=== PATIENT | male | born 1930 | race Caucasian/White ===

== ENCOUNTER 2017-05-06 09:23 | Inpatient (IN) | payer MEDICARE, BC ==
[~2017-05-06] VITALS: Ht 152.4 cm; Wt 90.0 kg
[2017-05-06] VITALS (14 sets, daily range): BP systolic 81–159; BP diastolic 45–73; PULSE 79–130; RESP 14–30; TEMP 98.1–98.7; O2SAT 94–100
[~2017-05-06 09:23] MED LIST: ACET325T15 PEG; Albuterol-Ipratropium Neb NEB; CARD2TAB PO; CEFA2SOL IV; DOXA1TAB35 PO; FAMO20TA2 PO; METH500T3 PO; NOVOLOGSS SQ; OXYC1CAP PO; PERI PEG; Sulfamet-Trimet 800-160 Mg Liq PO
[2017-05-06] MEDS ORDERED: RESP: RACEPINEPHRINE 2.25% 0.5 ML NEB ONE (09:28)
[2017-05-06] MEDS ORDERED: MISCELLANEOUS NURSING INFORMATION XX SCH (10:15)
[2017-05-06] MEDS ORDERED: CHLORHEXIDINE GLUCONATE 2 % 1 PACK (2 CLOTHS) TOP PRN (10:15)
[2017-05-06] MEDS ORDERED: SODIUM CHLORIDE 0.9% FLUSH 10 ML FLUSH IV FLUSH PRN (10:15)
--- NOTE | 2017-05-06 10:40 | HHI.HP ---
[facility] Service Critical Care Medicine Primary Care Physician Christopher Levy M.D. Admission Diagnosis Diagnosis: Chief Complaint: stridor Travel History International Travel<30 Days: No Contact w/Intl Traveler <30 Da: No Traveled to Known Affected Are: No History of Present Illness 87-year-old male was initially admitted to outside facility on April 10, 2017 after a fall and was found to have an unstable C5-C6 fracture for which she underwent C6 partial corpectomy, cervical discectomy anterior approach, fusion C5-C6, posterior cervical fusion C4-C7. His hospital course at that time was complicated by hematoma with cord compression for which she had repeat surgery on 04/12 with evacuation of hematoma following which he was discharged to a rehab facility however started having persistent drainage from posterior cervical neck fusion site with dysphagia and was readmitted on April 28. MSSA. On his admission April 28 at [facility] he was evaluated by multiple specialists including ENT, GI, and infectious disease. Infectious disease had the neurosurgical involved because of the persistent drainage from his neck fusion. Underwent PEG tube placement. Blood cultures done at rehab facility grew out MSSA. Patient underwent repeat surgery on April 29 and April 30 for posterior cervical wound with incision and sharp debridement and wound cultures from that surgery grew out MSSA. Blood cultures from that admission were negative. Patient was subsequently transferred to [facility] on April. He was evaluated by hospitalist service as well as ID and was continued on Ancef IV. Patient developed problems with stridor and was evaluated by ENT and underwent CT C-spine on 05/[address] head[address] CT C- spine revealed fluid collection at the level of C3 with hardware in place. This morning ENT attempted laryngoscopy however patient stopped the procedure. He has been having problem with secretions. Subsequently developed worsening stridor for which a rapid response was called and patient was transferred to the ICU. He received Solu-Medrol 125 mg IV as well as racemic epinephrine by nebulizer treatment prior to transfer. I evaluated the patient immediately on his arrival to the ICU. At that time he was on a facemask maintaining O2 sats 100%. He did have audible stridor however did have a bee sting movement. I spoke with the ENT Dr. Reyes who evaluated the patient on [facility] and notified him of events including stridor. He felt patient had vocal cord dysfunction at this time which he anticipated would improve with time however in the meanwhile we agreed that patient needed to be watched in the ICU and that he may possibly need intubation. History was obtained by reviewing records and discussion with nursing staff and Dr. Reyes. Review of Systems Constitutional: DENIES: Fever, Chills Eyes: DENIES: Eye pain Ears, nose, mouth, throat: DENIES: Nasal discharge, Oral lesions, Throat pain, Ear Pain Respiratory: COMPLAINS OF: Cough, Sputum production, Shortness of breath Cardiovascular: DENIES: Chest pain, Syncope Gastrointestinal: COMPLAINS OF: Abdominal pain, DENIES: Diarrhea, Nausea, Vomiting, Difficulty Swallowing Genitourinary: DENIES: Urgency, Dysuria Musculoskeletal: DENIES: Joint pain Integumentary: DENIES: Rash Neurologic: DENIES: Headache Psychiatric: COMPLAINS OF: Confusion Past Family Social History Allergies: Coded Allergies: aspirin (Unverified Allergy, Severe, RASH/SOB, 10/12/16) ibuprofen (Unverified Allergy, Severe, MOTRIN--RASH/SOB, 10/12/16) Past Medical History Atrial fibrillation Dysphagia Traumatic C5-C6 fracture from a fall Recent MSSA septicemia Kidney stones Past Surgical History Bilateral hip replacement PEG placement Cervical spine surgery March 2017 Active Ordered Medications Current Medications IV Ancef Oral Bactrim Medications (Trade) Dose Ordered Sig/Vikas Route Start Time Stop Time Status Last Admin (Cardura) 2 mg DAILY PO 05/05/17 09:00 05/05/17 08:00 (Pepcid) 20 mg DAILY PO 05/05/17 09:00 05/05/17 08:00 (Robaxin) 500 mg QID PRN PO 05/04/17 17:30 (Tylenol) 650 mg Q4H PRN PEG 05/04/17 17:45 (Marge-Colace) 1 tab BID PEG 05/04/17 21:00 05/05/17 08:00 (Milk Of Magnesia Liq) 30 ml Q12H PRN PO 05/04/17 17:45 (Senokot) 17.2 mg Q12H PRN PEG 05/04/17 17:45 (Dulcolax Supp) 10 mg DAILY PRN RECTAL 05/04/17 17:45 (Lactulose Liq) 30 ml DAILY PRN PO 05/04/17 17:45 (Roxicodone) 5 mg Q4H PRN PO 05/04/17 18:15 05/05/17 08:01 Cefazolin Sodium/ Dextrose 50 ml @ 100 mls/hr Q8H IV 05/04/17 20:00 05/05/17 14:18 (Duoneb Neb) 1 ampule Q6HR WHILE AWAKE NEB NEB 05/05/17 14:00 05/05/17 13:00 (Duoneb Neb) 1 ampule Q2HR NEB PRN NEB 05/05/17 08:15 05/05/17 09:36 (Bactrim 800-160 Mg/20 ml Liq) 20 ml Q12H PO 05/05/17 14:00 05/12/17 13:59 Family History Noncontributory Social History Ex smoker 1 pack per day, quit in the 70s Intermittent alcohol use No illicit drugs Review of Systems ROS Limitations: Clinical Condition ROS stridor with resp distress limiting detailed ROS Physical Exam Vital Signs Vital Signs Date Time Temp Pulse Resp B/P (MAP) Pulse Ox O2 Delivery O2 Flow Rate FiO2 05/06/17 09:40 100 Nasal Cannula 3.00 Physical Exam HEENT/Neuro: No pallor or icterus, tongue moist, CESAR, Awake alert oriented 3 , nonfocal grossly, moving all 4 extremities Neck: [place] J collar in place Chest/pulmonary: Good air entry bilaterally, Inspiratory stridor present. Cardiovascular: S1-S2 regular no gallop or murmur GI/abdomen: Soft, nontender, bowel sounds present. PEG tube in place Extremities: Warm bilaterally, no edema Septic Shock Reassessment Septic shock perfusion: reassessment completed Caprini VTE Risk Assessment Caprini VTE Risk Assessment: Mod/High Risk (score >= 2) Caprini Risk Assessment Model Point Value = 1 Point Value = 2 Point Value = 3 Point Value = 5 Age 41-60 Minor surgery BMI > 25 kg/m2 Swollen legs Varicose veins or History of unexplained or recurrent spontaneous Oral contraceptives or hormone replacement Sepsis (< 1 month) Serious lung disease, including pneumonia (< 1 month) Abnormal pulmonary function Acute myocardial infarction Congestive heart failure (< 1 month) History of inflammatory bowel disease Medical patient at bed rest Age 61-74 Arthroscopic surgery Major open surgery (> 45 min) Laparoscopic surgery (> 45 min) Malignancy Confined to bed (> 72 hours) Immobilizing plaster cast Central venous access Age >= 75 History of VTE Family history of VTE Factor V Leiden Prothrombin [id number] Lupus anticoagulant Anticardiolipin antibodies Elevated serum homocysteine Heparin-induced thrombocytopenia Other congenital or acquired thrombophilia Stroke (< 1 month) Elective arthroplasty Hip, pelvis, or leg fracture Acute spinal cord injury (< 1 month) Prophylaxis Regimen Total Risk Factor Score Risk Level Prophylaxis Regimen 0-1 Low Early ambulation 2 Moderate Order ONE of the following: *Sequential Compression Device (SCD) *Heparin 5000 units SQ BID 3-4 Higher Order ONE of the following medications: *Heparin 5000 units SQ TID *Enoxaparin/Lovenox 40 mg SQ daily (WT < 150 kg, CrCl > 30 mL/min) *Enoxaparin/Lovenox 30 mg SQ daily (WT < 150 kg, CrCl > 10-29 mL/min) *Enoxaparin/Lovenox 30 mg SQ BID (WT < 150 kg, CrCl > 30 mL/min) AND/OR *Sequential Compression Device (SCD) 5 or more Highest Order ONE of the following medications: *Heparin 5000 units SQ TID (Preferred with Epidurals) *Enoxaparin/Lovenox 40 mg SQ daily (WT < 150 kg, CrCl > 30 mL/min) *Enoxaparin/Lovenox 30 mg SQ daily (WT < 150 kg, CrCl > 10-29 mL/min) *Enoxaparin/Lovenox 30 mg SQ BID (WT < 150 kg, CrCl > 30 mL/min) AND *Sequential Compression Device (SCD) Assessment and Plan Assessment and Plan 87-year-old male with past medical history significant for atrial fibrillation, hypertension, anemia and osteoarthritis status post bilateral total hip replacements who sustained a fall in March resulting in unstable C6 fracture and spinal cord injury s/p ACDF C56, partial corpectomy C6 and posterior decompression and fusion C4 to C7 complicated by postoperative hematoma requiring evacuation and postoperative wound infection with MSSA now transferred from [facility] for worsening stridor with vocal cord dysfunction and C3 level fluid collection Unstable C6 fracture s/p fall Traumatic cervical cord injury Central cord syndrome s/p ACDF C5-C6, partial corpectomy C6 and staged posterior cervical decompression and fusion C4 to C7 complicated by hematoma with cord compression s/p evacuation -Comprehensive rehabilitation per primary team -Fall precautions -Pain management with bowel regimen -monitor wound healing Stridor Acute respiratory failure Vocal cord dysfunction Fluid collection at C3 level Patient received racemic epinephrine nebulizer treatment 2 as well as Solu- Medrol 125 mg IV at the [facility]. Continues to have stridor. Evaluated patient again with Dr. Chin and plan to proceed with intubation for airway protection and subsequently percutaneous tracheostomy Patient will be intubated and placed on mechanical ventilation and subsequently will proceed with percutaneous tracheostomy. ENT following and to decide further management of fluid collection at C3 level. Will get neurosurgical consult as well for evaluation of fluid collection at C3 level. MSSA sepsis I&D cervical wound with cultures positive for MSSA. Repeat cultures -ID consulted by primary team. Plan to continue IV Ancef for 6 weeks from date of surgery 04/29. -Per ID, plan to refer to Dr. Bean at time of discharge, questionable lifelong suppression due to hardware placement -Follow ESR/CRP Bilateral upper extremity edema -Doppler studies reveal nonocclusive thrombus in the right axillary and brachial veins. 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 Likely dysphonia multifactorial with poor respiratory effort, dry mucosa, decreased cord mobility and thick mucus. -CT neck for further evaluation -suction prn -ENT consulted by primary team., Seen by ENT scope -aspiration precautions UTI -started on Bactrim by primary team -follow up on final UCX results Atrial fibrillation Rate controlled -previously on Plavix per review of medical record -rehab team to contact NS to see when anticoagulation can be resumed -continue to monitor HR Hypertension -Continue on Cardura 2 mg daily -To monitor BP and adjust treatment accordingly Anemia, suspect postoperative anemia of acute blood loss -Hemoglobin 9.7 -Unknown baseline -Monitor for any active bleeding -Monitor CBC as indicated Incidental finding of [address] chest suggestive of spiculated mass -hospitalist discussed finding with and patient on [place] re[facility] -Recommend PET scan as outpatient Confusion, patient hallucinating -?sundowning -Neuropsychologist consulted by primary team -CT head DVT prophylaxis -Bilateral SCD/SARIKA hose/ lovenox starting 05/07 Patient's son at bedside was informed regarding current status and plan of care and voiced understanding. Dr. Lopez spoke with patient's and informed her regarding need for intubation and tracheostomy. Condition critical Time spent on critical care excluding procedures 60 minutes Chris Gupta MD May 06, 2017 10:40
[2017-05-06] MEDS: SODIUM CHLORIDE 0.9% FLUSH 10 ML FLUSH IV FLUSH SCH ×2 (11:00→20:55)
[2017-05-06] MEDS: RESP: ALBUTEROL 2.5 MG/IPRATROPIUM 0.5 MG NEB (PRN) INH (11:15)
[2017-05-06] MEDS ORDERED: RESP: RACEPINEPHRINE 2.25% 0.5 ML NEB NEB ONE (11:15)
[2017-05-06] MEDS ORDERED: fentaNYL CITRATE 250 MCG/5 ML AMP IV ONE (11:15)
[2017-05-06] MEDS ORDERED: ATROPINE SULFATE 1 MG/ML VIAL IV PUSH ONE (11:15)
[2017-05-06] MEDS ORDERED: PROPOFOL 500 MG/50 ML BTL IV ONE (11:15)
[2017-05-06] MEDS ORDERED: ATROPINE SULFATE 1 MG/10 ML SYRINGE ONE (11:22)
[2017-05-06] MEDS: PROPOFOL 1000 MG/100 ML INJ 100 ML IV PRN ×2 (11:33→17:02)
[2017-05-06] MEDS ORDERED: SUCCINYLCHOLINE CHLORIDE 200 MG/10 ML VIAL ONE (11:46)
[2017-05-06] MEDS ORDERED: ROCURONIUM INJ 50 MG/5 ML VIAL ONE (11:50)
[2017-05-06] MEDS ORDERED: fentaNYL DRIP 250 ML IV PRN (12:00)
--- NOTE | 2017-05-06 12:40 | PD.PROCEDR ---
Procedure Note Procedure Procedure: Endotracheal intubation Preop diagnosis: Stridor with upper airway compromise secondary to vocal cord dysfunction Postop diagnosis: Same Indication: Airway protection Sedation used: Propofol 100 mg IV, fentanyl 200 mcg IV Procedure: Patient was preoxygenated with 100% oxygen via Ambu bag with bag mask ventilation, following induction of sedation, laryngoscopy was performed using a glidescope with good visualization of vocal cords. A 7 Sami ET tube was passed through the vocal cords under direct visualization up to the 23 centimeter sarha and after inflating cuff of ET tube, correct placement was confirmed using bagging with good color change on CO2 detector, 5 point auscultation and chest rise with ventilation. Patient was connected to mechanical ventilation. Patient tolerated the procedure well with no immediate complications noted. Following intubation we proceeded with percutaneous tracheostomy. Please see procedure note for tracheostomy which is dictated separately for details. Chris Gupta MD May 06, 2017 12:40
--- NOTE | 2017-05-06 12:44 | PD.PROCEDR ---
Procedure Note Procedure Procedure: Percutaneous tracheostomy with bronchoscopic guidance Operators: Dr. Chris Gupta for percutaneous tracheostomy, Dr. hCin for bronchoscopy Informed consent obtained from family and documented on chart Preoperative diagnosis: Vocal cord dysfunction with airway compromise/stridor Postoperative diagnosis: Same Anesthesia used: Propofol IV infusion, fentanyl 100 g IV, rocuronium 50 mg IV for neuromuscular blockade. 1.5% lidocaine for local infiltration anesthesia Procedure: After ensuring adequate sedation/analgesia neuromuscular blockade, patient was positioned appropriately. After sterile prepping and draping, 1% lidocaine was used for local infiltration anesthesia. Dr. Chin proceeded withbronchoscopy and withdrawing ET tube. Tracheal position was visualized by transillumination. Introducer needle was inserted into the trachea under bronchoscopic guidance. A guidewire was passed via the needle and was visualized passing down the trachea following which needle was then removed. Punch dilator was used to dilate the tracheal ring following which tracheostomy dilator assembly was mounted over the guidewire and advanced to dilate the trachea with dilator being visualized via bronchoscopic guidance entering the trachea during dilation without injuring the posterior tracheal wall. Following this dilator assembly was removed and percutaneous tracheostomy mounted over dilator was advanced over the guidewire into the trachea under direct visualization following which guidewire/dilator were removed. Bronchoscope was inserted at this point by Dr. Chin via newly inserted tracheostomy and appropriate placement was confirmed by visualizing tracheal rings following which bronchoscope was withdrawn and inner cannula was placed via tracheostomy. After inflating cuff patient was connected to mechanical ventilation via tracheostomy. 4 interrupted sutures were used to secure tracheostomy to neck. Patient tolerated the procedure well with no immediate complications noted. Good hemostasis was achieved at the end of procedure. Postprocedure chest x-ray was ordered and was pending at the time of this dictation and will be reviewed when available. Chris Gupta MD May 06, 2017 12:44
[2017-05-06] MEDS ORDERED: ACETAMINOPHEN 650 MG/20.3 ML UDC PEG PRN (12:45)
[2017-05-06] MEDS ORDERED: METHOCARBAMOL 500 MG TAB PO PRN (12:45)
--- NOTE | 2017-05-06 13:00 | PD.PROCEDR ---
Procedure Note Procedure DX: Acute respiratory failure, upper airway obstruction OP: Bronchoscopy ([id number]) Procedure: Time out. Bronchoscope delivered through a sideport in the ventilator circuit and passed through the orotracheal tube. The tracheobronchial tree revealed normal anatomy and the mucosa was normal. The scope and ET tube were then withdrawn to the level of the cricoid and used for visualization of the anterior tracheal wall during insertion of a percutaneous tracheostomy. After insertion the scope was passed through the new trach tube and visualized in good position above the lara and with no bleeding from above. The vent circuit was rapidly transferred to the new trach site and full vent volumes were observed returning. O2 saturation was maintained over 95% throughout the procedure. Ernie Chni MD May 06, 2017 13:00
--- NOTE | 2017-05-06 13:33 | RADRPT ---
EXAM DATE/TIME: 05/06/2017 12:42 [place] COMPARISON: CHEST SINGLE AP, May 05, 2017, 17:01. INDICATIONS : S/p tracheostomy. MEDICAL HISTORY : Cardiovascular disease. Hypercholesterolemia. Hypertension. a-fib SURGICAL HISTORY : peg tube, internal defibrilator. ENCOUNTER: Initial ACUITY: 2 days PAIN SCORE: Non-responsive. LOCATION: Bilateral chest FINDINGS: A single view of the chest demonstrates the lungs to be symmetrically aerated without evidence of mas s, infiltrate or effusion. Tracheostomy in good position. The cardiomediastinal contours are unrema rkable. Osseous structures are intact. CONCLUSION: Tracheostomy in good position. Guerrero Henry MD FACR on May 06, 2017 at 13:31 Board Certified Radiologist. This report was verified electronically.
--- NOTE | 2017-05-06 13:59 | PD.CONS ---
History of Present Illness Service Infectious disease Consult Requested By Dr Gabbie Gupta Reason for Consult Evaluate patient with MSSA bacteremia, assist with antibiotic management Primary Care Physician Christopher Levy M.D. Diagnoses: History of Present Illness Patient seen and examined. Records reviewed. Patient was seen yesterday when he was seen [facility]. Patient is an 87-year-old male, who was initially admitted April 10 in another facility after a fall. He was diagnosed to have traumatic C5 to C6 fracture. He underwent C6 partial corpectomy, cervical discectomy anterior approach, fusion C5-C6, posterior cervical fusion C4 to C7. This was complicated by hematoma with cord compression, and he underwent surgery again on April 12 and had evacuation of the hematoma. From there he was discharged to a rehabilitation facility. In the rehabilitation apparently he was having persistent drainage from the posterior cervical neck fusion. He was also having problem with dysphagia. He was admitted again on April 28 for PEG placement. In the rehabilitation facility he was having some fatigue and generalized malaise. He was also noted to have leukocytosis. Blood cultures done in the rehabilitation facility grew MSSA. On his admission April 28 at [facility] he was evaluated by multiple specialists including ENT , GI, and infectious disease. Infectious disease had the neurosurgical involved because of the persistent drainage from his neck fusion. Patient underwent surgery on April 29 and had reexploration of the posterior cervical wound with incision and sharp debridement. Wound culture from that surgery grew MSSA. The operative note was reviewed, and during surgery there was no hardware exposed. He had blood cultures done during that admission, and it came back negative. Patient was stable and transferred to [facility] on May 04. This morning patient apparently developed significant shortness of breath, and stridor. ENT was in the process of evaluating him but he was not completed. Patient was transferred to the intensive care unit for respiratory decompensation. He had undergone tracheostomy placement. He is afebrile. His WBC is normal. His chest x-ray yesterday is normal. Abdominal x-ray yesterday also showed that the PEG tube is in the stomach, and in good position. Infectious disease consultation has been requested to assist with antibiotic management in patient with MSSA bacteremia Review of Systems ROS Limitations: Clinical Condition, Intubated Past Family Social History Allergies: Coded Allergies: aspirin (Unverified Allergy, Severe, RASH/SOB, 10/12/16) ibuprofen (Unverified Allergy, Severe, MOTRIN--RASH/SOB, 10/12/16) Past Medical History Atrial fibrillation Dysphagia Traumatic C5-C6 fracture from a fall Recent MSSA septicemia Kidney stones Past Surgical History Bilateral hip replacement PEG placement Cervical spine surgery March 2017 Past Surgical History Bilateral hip replacement PEG placement Cervical spine surgery March 2017 Active Ordered Medications Current Medications Ancef Medications (Trade) Dose Ordered Sig/Vikas Route Start Time Stop Time Status Last Admin (NS Flush) 2 ml UNSCH PRN IV FLUSH 05/06/17 10:15 (NS Flush) 2 ml BID IV FLUSH 05/06/17 11:00 (Duoneb Neb) 1 ampule Q6HR NEB NEB 05/06/17 16:00 (Duoneb Neb) 1 ampule Q4HR NEB PRN INH 05/06/17 10:15 05/06/17 11:15 (Peridex 0.12% Liq) 15 ml BID@08,20 MT 05/06/17 20:00 (Pepcid Inj) 20 mg Q12HR IV PUSH 05/06/17 21:00 (Lovenox Inj) 30 mg Q24H SQ 05/07/17 11:00 Miscellaneous Information 1 Q361D XX 05/06/17 10:15 (Chlorhexidine 2% Cloth) 3 pack Taper DAILY@04 TOP 05/07/17 04:00 05/03/18 03:59 (Chlorhexidine 2% Cloth) 3 pack UNSCH PRN TOP 05/06/17 10:15 Propofol 100 ml @ 2.73 mls/hr TITRATE PRN IV 05/06/17 12:00 05/06/17 11:33 Fentanyl Citrate 250 ml @ 5 mls/hr TITRATE PRN IV 05/06/17 12:00 05/06/17 11:34 (Tylenol) 650 mg Q4H PRN PEG 05/06/17 12:45 UNV (Ancef 2 Gm Premix) 2 gm Q8H IV 05/06/17 12:45 UNV (Cardura) 2 mg DAILY PO 05/07/17 09:00 UNV (Robaxin) 500 mg QID PRN PO 05/06/17 12:45 UNV (Roxicodone) 5 mg Q4H PRN PO 05/06/17 12:45 UNV (Marge-Colace) 1 tab BID PEG 05/06/17 21:00 UNV Non-Formulary Medication 20 ml Q12H PO 05/06/17 12:45 UNV Family History Noncontributory Social History Ex smoker 1 pack per day, quit in the 70s Intermittent alcohol use No illicit drugs Physical Exam Vital Signs Vital Signs Date Time Temp Pulse Resp B/P (MAP) Pulse Ox O2 Delivery O2 Flow Rate FiO2 05/06/17 12:40 100 100 05/06/17 12:00 99 100 05/06/17 10:30 96 Aerosol Mask 21 05/06/17 09:40 100 Nasal Cannula 3.00 Physical Exam GENERAL: Patient is a well-nourished, well-developed male, sedated on the vent, status post tracheostomy placement, not in respiratory distress. SKIN: Cool and dry. No generalized rash, no ecchymoses and no evidence of embolic lesions. HEAD: Atraumatic. Normocephalic. No temporal wasting, or tenderness. EYES: Pale conjunctiva. No petechia or hemorrhage. Pupils equal, round and reactive to light. No scleral icterus. No injection or drainage. EARS, NOSE AND THROAT: Nose without bleeding or purulent nasal discharge. NECK: Patient just had tracheostomy. He is wearing a cervical collar CARDIOVASCULAR: Regular rate and rhythm. No murmurs, rubs or gallops heard RESPIRATORY: Clear breath sounds anteriorly, no rhonchi or wheezing appreciated currently ABDOMEN: Soft, nondistended, no reaction to deep palpation.. Bowel sounds present and normoactive. No organomegaly. PEG site ok EXTREMITIES: No clubbing, cyanosis. Has edema both hands, mild pedal edema. NEUROLOGICAL: Sedated PSYCHIATRIC: Unable to assess LINE: No evidence of infection midline RUE Laboratory Laboratory Tests ESR 48 CRP 7.9 UC negative so far Wound C/S pending Test 05/05/17 02:17 05/05/17 07:12 05/05/17 07:22 Urine Color YELLOW Urine Turbidity HAZY Urine pH 6.0 Urine Specific [place] 1.031 Urine Protein 30 Urine Glucose (UA) NEG Urine Ketones 10 Urine Occult Blood NEG Urine Nitrite NEG Urine Bilirubin NEG Urine Urobilinogen LESS THAN 2.0 Urine Leukocyte Esterase SMALL Urine RBC 18 Urine WBC 11 Urine Squamous Epithelial Cells 1 Urine Transitional Epithelial Cells 1 Urine Calcium Oxalate Crystals OCC Urine Bacteria RARE Urine Mucus MANY Microscopic Urinalysis Comment CULTURE INDICATED Blood Urea Nitrogen 10 Creatinine 0.66 Random Glucose 144 Total Protein 5.5 Albumin 2.1 Calcium Level 8.0 Alkaline Phosphatase 81 Aspartate Amino Transf (AST/SGOT) 17 Alanine Aminotransferase (ALT/SGPT) 11 Total Bilirubin 0.5 Sodium Level 140 Potassium Level 3.4 Chloride Level 103 Carbon Dioxide Level 31.0 Anion Gap 6 Estimat Glomerular Filtration Rate 115 White Blood Count 8.2 Red Blood Count 3.08 Hemoglobin 9.7 Hematocrit 27.7 Mean Corpuscular Volume 89.9 Mean Corpuscular Hemoglobin 31.4 Mean Corpuscular Hemoglobin Concent 34.9 Red Cell Distribution Width 14.9 Platelet Count 232 Mean Platelet Volume 6.9 Neutrophils (%) (Auto) 82.6 Lymphocytes (%) (Auto) 9.1 Monocytes (%) (Auto) 5.5 Eosinophils (%) (Auto) 2.2 Basophils (%) (Auto) 0.6 Neutrophils # (Auto) 6.8 Lymphocytes # (Auto) 0.8 Monocytes # (Auto) 0.5 Eosinophils # (Auto) 0.2 Basophils # (Auto) 0.0 CBC Comment DIFF FINAL Differential Comment Date/Time Source Procedure Growth Status 05/05/17 02:17 Urine Clean Catch Urine Culture Pending Received Imaging RADIOLOGY STUDIES/FILMS REVIEWED Chest X-Ray 05/06/17 0000 Signed Impressions: Service Date/Time: Saturday, May 06, 2017 12:42 - CONCLUSION: Tracheostomy in good position. Guerrero Henry MD FACR Abdomen X-Ray 05/05/17 1307 Signed Impressions: Service Date/Time: April 16:04 - CONCLUSION: G-tube overlying the stomach. Haider Monzon MD Neck CT 05/05/17 0000 Signed Impressions: Service Date/Time: April 20:17 - CONCLUSION: 4 cm area at low density area in the posterior midline soft tissues at the surgical site. CT density is 13 Hounsfield units suggesting a fluid collection. Brendon Apple MD Head CT 05/05/17 0000 Signed Impressions: Service Date/Time: April 20:14 - CONCLUSION: 1. Age-appropriate atrophy. 2. No acute findings in the brain. Brendon Apple MD Chest X-Ray 05/05/17 0000 Signed Impressions: Service Date/Time: April 17:01 - CONCLUSION: No acute disease. Haider Monzon MD Upper Extremity Ultrasound 05/04/17 0000 Signed Impressions: Service Date/Time: Thursday, May 04, 2017 22:46 - CONCLUSION: 1. There is nonocclusive thrombus within the right axillary and brachial veins. The remaining veins of the right upper extremity are patent. 2. There is no left upper extremity venous thrombosis. Melo Stuart MD Lower Extremity Ultrasound 05/04/17 0000 Signed Impressions: Service Date/Time: Thursday, May 04, 2017 22:34 - CONCLUSION: No DVT is identified within either lower extremity. Melo Stuart MD Assessment and Plan Assessment and Plan IMPRESSION Stridor, etiology? 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 MSSA sepsis, due to wound infection posterior neck fusion C4-C7 - S/P incision and sharp debridement April 29 - repeat CT with fluid collection close to hardware Traumatic C5-C6 fracture S/P surgery; reop for hematoma and cord compression Mar 2017 Prob with COPD, bronchitis Dysphagia, S/P PEG S/P tracheostomy RECOMMENDATION Continue IV ANcef - plan 6 weeks from date of surgery 04/29 - when he gets D/C will refer to Dr Bean, ?chronic suppression since he has hardware Follow C/S Repeat 2 BC Patient getting echo done at bedside Monitor progress I will follow along with you Thank you for this consultation Discussed Condition With D/W Jaquelin Quintero MD May 06, 2017 13:59
[2017-05-06] MEDS: ceFAZolin 2 GM/50 ML BAG IV SCH ×2 (14:47→23:26)
--- NOTE | 2017-05-06 15:59 | PD.CONS ---
Consult Service Palliative Care Consult Requested By Dr. Gupta Primary Care Physician Christopher Levy M.D. Reason for Consultation a. To assist with evaluation and management of symptoms including: Shortness of breath, pain, debility b. To assist medical decision maker(s) with: better understanding of current medical conditions; weighing benefits/burdens of medical treatment options; making medical treatment decisions. HPI History of Present Illness Mr. Mcfarland is a 87 years old male with a past medical history of atrial fibrillation, dysphagia, traumatic C5-C6 fracture from a fall, recent MSSA septicemia and kidney stones. Patient was transferred from [facility] today to ICU after rapid response was called due to worsening audible stridor. Patient was recently admitted at [facility] on 04/10/17 after a fall sustaining an unstable C5-C6 cervical fractures. He was transferred to [facility] where he underwent C6 partial corpectomy, cervical discectomy anterior approach, fusion C5-C6 posterior, cervical fusion C4-C7. His clinical course was complicated by a hematoma with cord compression and he had to undergo repeat surgery on 04/12/17 to evacuate hematoma at [facility]. Patient was discharged to [facility] in [place] and he had complications with persistent drainage from posterior cervical neck fusion site and dysphagia. Blood cultures drawn at rehab were positive for MSSA.Patient was readmitted to [facility] on 04/28/17 where he was evaluated by infectious disease, gastroenterology, and ENT. PEG tube was placed during that admission. On and 04/30/17 patient underwent repeat surgery for posterior cervical wound with incision and debridement. Wound cultures grew MSSA and blood cultures were negative. Patient was then medically discharged transferred to [facility] for inpatient rehabilitation on May 04, 2017. In rehab patient was followed by [facility] hospitalists and infectious disease. Patient developed stridor and copious secretions at rehab and ENT was consulted. ENT attempted to perform laryngoscopy twice. Neck CT on 05/05 revealed 4 cm area of low density area in posterior midline soft tissues at the surgical site, and CT density of 13 [place] suggesting a fluid collection. 25 mg of IV Solu-Medrol, DuoNeb and racemic epi while at rehab were administered and patient continued to have worsening shortness of breath and audible stridor. Critical care Dr. Gupta consulted for respiratory and medical management. Patient went endotracheal intubation, bronchoscopy and percutaneous tracheostomy on 05/06/17. Infectious disease consulted for evaluation and management of MSSA bacteremia and assistance with antibiotic management. ENT Dr. Haskins consulted for further evaluation of vocal cord dysfunction with stridor. Neurosurgeon Dr. Castro consulted for evaluation of fluid collection C3 level. Palliative care consulted to assist with establishing goals of care. Patient seen and examined in ICU. Patient is currently sedated, trached on mechanical ventilation. Vent settings PRVC/AC 14/450/1.0S/5/50%. Vital signs stable. Lengthy telephone conversation with patients` who provided psychosocial history and past medical history. Supportive listening provided as patients explained trajectory of decline and complications that patient has faced in the past month. Updated patient`s of patient`s current medical status. Patient`s mentioned that patient has advance directives and will bring in copies to the hospital and she believes that she is the designated Health care surrogate. Addressed code status, discussed CPR limitations and benefits and patient`s at this time would like patient to be a full code. Palliative care contact information provided. Case discussed with Dr. Fco uGpta and bedside RN. . Function/Cognitive Trajectory According to patient`s prior to his fall in March, patient was independent of all his ADLs. He was able to drive. In rehab, patient was only able to ambulate short distances with a walker in the [address]. Patient mentioned that he had a Wheel chair in rehab. . Review of Systems ROS Limitations: Clinical Condition, Other (Trached and on mechanical ventilation) Constitutional: COMPLAINS OF: Pain Eyes: DENIES: Eye inflammation Ears, nose, mouth, throat: COMPLAINS OF: Hearing loss, Hoarseness Respiratory: COMPLAINS OF: Sputum production Cardiovascular: COMPLAINS OF: Lower Extremity Edema Gastrointestinal: COMPLAINS OF: Bloody stools, Constipation, Difficulty Swallowing, DENIES: Diarrhea, Nausea, Vomiting Genitourinary: COMPLAINS OF: Urgency, DENIES: Urinary incontinence Hematologic/Lymphatics: COMPLAINS OF: Bruising Neurologic: COMPLAINS OF: Abnormal gait (falls), Poor Balance, DENIES: Localized weakness Psychiatric: DENIES: Confusion, Depression Other ROS: ROS obtained from EMR, and clinical observation. . Past Family Social History Coded Allergies: aspirin (Unverified Allergy, Severe, RASH/SOB, 10/12/16) ibuprofen (Unverified Allergy, Severe, MOTRIN--RASH/SOB, 10/12/16) Past Medical History Traumatic C5-C6 fracture from a fall Atrial fibrillation Dysphagia Kidney stones Recent MSSA septicemia . Past Surgical History Cervical spine surgery March 2017 Bilateral hip replacement PEG placement . Reported Medications Novolog Inj (Insulin Aspart) 100 Unit/Ml Inj 1 Unit SQ ACHS SLIDING SCALE 30 Days Famotidine 20 Mg Tab 20 Mg PO DAILY 30 Days Gnp Senna Plus 8.6-50 mg (Sennosides-Docusate Sodium) 8.6 Mg-50 Mg Tab 1 Tab PEG BID 30 Days Eq Acetaminophen (Acetaminophen) 325 Mg Tab 650 Mg PEG Q4H PRN 30 Days Cardura (Doxazosin Mesylate) 2 Mg Tab 2 Mg PO DAILY 30 Days Methocarbamol 500 Mg Tab 500 Mg PO QID PRN 30 Days [Albuterol-Ipratropium Neb] 1 AMPULE Nebu 1 Ampule NEB Q2HR NEB PRN 30 Days [Albuterol-Ipratropium Neb] 1 AMPULE Nebu 1 Ampule NEB Q4HR WHILE AWAKE NEB 30 Days [Sulfamet-Trimet 800-160 Mg Liq] 20 ML Susp 20 Ml PO Q12H 30 Days Cefazolin Inj (Cefazolin Sodium/Dextrose) 2 Gm/50 Ml Bagp 2 Gm IV Q8H 30 Days Oxycodone (Oxycodone HCl) 5 Mg Cap 5 Mg PO Q4H PRN Methocarbamol 500 Mg Tab 500 Mg PO QID PRN Famotidine 20 Mg Tab 20 Mg PO DAILY Doxazosin (Doxazosin Mesylate) 2 Mg Tab 2 Mg PO DAILY . Current Medications Medications (Trade) Dose Ordered Sig/Vikas Route Start Time Stop Time Status Last Admin (NS Flush) 2 ml UNSCH PRN IV FLUSH 05/06/17 10:15 (NS Flush) 2 ml BID IV FLUSH 05/06/17 11:00 05/06/17 11:00 (Duoneb Neb) 1 ampule Q6HR NEB NEB 05/06/17 16:00 (Duoneb Neb) 1 ampule Q4HR NEB PRN INH 05/06/17 10:15 05/06/17 11:15 (Peridex 0.12% Liq) 15 ml BID@08,20 MT 05/06/17 20:00 (Pepcid Inj) 20 mg Q12HR IV PUSH 05/06/17 21:00 (Lovenox Inj) 30 mg Q24H SQ 05/07/17 11:00 Miscellaneous Information 1 Q361D XX 05/06/17 10:15 (Chlorhexidine 2% Cloth) 3 pack Taper DAILY@04 TOP 05/07/17 04:00 05/03/18 03:59 (Chlorhexidine 2% Cloth) 3 pack UNSCH PRN TOP 05/06/17 10:15 Propofol 100 ml @ 2.73 mls/hr TITRATE PRN IV 05/06/17 12:00 05/06/17 11:33 Fentanyl Citrate 250 ml @ 5 mls/hr TITRATE PRN IV 05/06/17 12:00 05/06/17 11:34 (Tylenol 650 Mg/ 20 ml Liq) 650 mg Q4H PRN PEG 05/06/17 12:45 (Ancef 2 Gm Premix) 2 gm Q8H IV 05/06/17 15:00 (Cardura) 2 mg DAILY PO 05/07/17 09:00 (Robaxin) 500 mg QID PRN PO 05/06/17 12:45 (Roxicodone) 5 mg Q4H PRN PO 05/06/17 12:45 (Marge-Colace) 1 tab BID PEG 05/06/17 21:00 (Bactrim 800-160 Mg/20 ml Liq) 20 ml Q12H PO 05/06/17 15:00 Family History Patient has 2 living adult children. . Substance Use Tobacco: History of smoking 1 PPD, quit in the 1970s Alcohol: Intermittent alcohol use Prescription med abuse: None reported Illicits: None reported . Psychosocial History Patient was born in [place]. 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 Patient has been 3 times and twice. Patient has been to his current Amelia for 34 years. Patient had 3 children, one , one adult daughter and one adult son. . Spiritual/Cultural Factors No quaker affiliation . Living Will: Never completed Health Care Surrogate: Never completed Durable Power of Supervisor Paint Department: Never completed Health Care Surrogate(s): Healthcare proxy -spouse -Bartolo Amelia- [phone] (to bring in copies of living will and healthcare surrogate) . Family/friends goals: Aggressive . Ethical and Legal Issues None identified at this time . Physical Exam Vital Signs Date Time Temp Pulse Resp B/P (MAP) Pulse Ox O2 Delivery O2 Flow Rate FiO2 05/06/17 12:40 100 100 05/06/17 12:00 99 100 05/06/17 10:30 96 Aerosol Mask 21 05/06/17 09:40 100 Nasal Cannula 3.00 Exam CONSTITUTIONAL/GENERAL: This is an adequately nourished patient, in no apparent distress, trached on mechanical ventilation. TUBES/LINES/DRAINS: PIV, tracheostomy, condom catheter, SCDs, PEG tube SKIN: No jaundice, rashes, or lesions. Ecchymoses on upper extremities. No wounds seen anteriorly. Skin temperature appropriate. Not diaphoretic. HEAD: Atraumatic. Normocephalic. EYES: Pupils equal and round and reactive. Extraocular motions intact. No scleral icterus. No injection or drainage. Fundi not examined. ENT: Nose without bleeding or purulent drainage. Moist oral mucosa. NECK: Trachea midline. Supple, nontender. CARDIOVASCULAR: Irregular rate and rhythm without murmurs, gallops, or rubs. Controlled A. fib-HR 70-90s. No JVD. Peripheral pulses symmetric. RESPIRATORY/CHEST: Symmetric, unlabored respirations. Clear to auscultation. Breath sounds equal bilaterally. No wheezes, rales, or rhonchi. GASTROINTESTINAL: Abdomen soft, non-tender, nondistended. No guarding. Intermittent bowel sounds. PEG tube clamped. GENITOURINARY: Without palpable bladder distension. Condom catheter MUSCULOSKELETAL: Extremities without clubbing, cyanosis, or edema. No joint tenderness or effusion noted. No calf tenderness. No mottling or clubbing. NEUROLOGICAL: Sedated, trached on mechanical ventilation. Slight withdrawal with all extremities. PSYCHIATRIC: Unable to assess. Diagnostic Tests Imaging Last Impressions Chest X-Ray 05/06/17 0000 Signed Impressions: Service Date/Time: Saturday, May 06, 2017 12:42 - CONCLUSION: Tracheostomy in good position. Guerrero Henry MD FACR Procedures 05/06/2017-endotracheal intubation and bronchoscopy 05/06/2017-percutaneous tracheostomy placement . Patient/Family Conference Family Conference Location: Telephone Issues Discussed: * Palliative care role, purpose, approach * Additional medical, psychosocial, and spiritual history * Patients general health, functional status, and cognitive changes in the months leading up to the current hospitalization * Patient/family understanding of the current medical problems * Patient/family understanding of prognosis * Patients goals of care as best understood from advance directives and/or conversations and/or values * Current medical treatment options and benefits/burdens of those options * Likely scenarios comparing ongoing aggressive care with a transition to comfort measures only * Questions answered to the best of my ability * Palliative care contact information provided Assessment and Plan Disease Oriented Problem List: (1) Acute respiratory failure (2) Dysphagia (3) Cervical spinal cord injury (4) MSSA (methicillin susceptible Staphylococcus aureus) septicemia (5) Anemia (6) A-fib (7) Hypertension Symptom Scale: (1) Shortness of breath 0-10 Scale: Unable to quantify Comment: History of C5-C6 fracture status post surgery, dysphagia. . (2) Pain 0-10 Scale: Unable to quantify Comment: Multifactorial. History of C5-C6 fracture status post surgery. Patient required tracheostomy placement 05/06/17. Currently bedbound. . (3) Debility 0-10 Scale: Unable to quantify Comment: Progressive . Pertinent Non-Medical Issues Psychosocial:Patient was born in [place]. 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 Patient has been 3 times and twice. Patient has been to his current Amelia for 34 years. Patient had 3 children, one , one adult daughter and one adult son. Spiritual: No quaker affiliation. Legal:. Patient spells he has advanced directives and she will bring in copies Ethical issues impacting care: None identified at this time . Important Contacts Spouse -Amelia Mcfarland- [phone] . Prognosis Mr. Mcfarland is a 87 years old male with a past medical history of atrial fibrillation, dysphagia, traumatic C5-C6 fracture from a fall, recent MSSA septicemia and kidney stones. Patient was transferred from [facility] today to ICU after rapid response was called due to worsening audible stridor. Patient is status post C6 partial corpectomy, cervical discectomy anterior approach, fusion C5-C6 posterior, cervical fusion C4-C7. Patient has had complications with hematoma with cord compression requiring with repeat surgery to evacuate hematoma, persistent drainage from posterior cervical neck fusion site, dysphagia and acute respiratory failure requiring tracheostomy. Given ongoing comorbidities and prolonged hospitalization, patient remains at high risk for further complications, deterioration and decline. . Code Status: Full Code Plan PLAN: Legal decision maker: Patient is currently sedated, trached and on mechanical ventilation. He is not able to participate in medical decision. According to [place] statute his Amelia Mcfarland will save his his healthcare proxy. Goals: Aggressive CODE STATUS: Full code SYMPTOMS: * Shortness of breath: Patient is he has a history of C5-C6 fracture status post partial corpectomy, discectomy and fusion. Patient also is history of dysphagia. Admitted for acute respiratory failure. Required Tracheostomy placement on 05/06/17 and mechanical ventilation. Patient is on DuoNeb's every 6 hours and prn. Patient's O2 saturation in the high 90s on FiO2 50%. No recommendations at this time. * Pain: Multifactorial. History of C5-C6 fracture status post surgery. Patient underwent tracheostomy placement 05/06/17. Currently bedbound. Patient is on fentanyl infusion at 75 mcg/hr and he has oxycodone 5 mg q 4 hrs prn, methocarbamol 500mg QID. Patient is not showing any signs of pain at this time. No recommendations. * Debility: Progressive. Patient is he had prolonged hospitalizations and was currently in [facility] rehabilitation. Patient will benefit from physical, and speech therapy. Palliative care will continue to follow the patient during hospital course as condition evolves, to assist patient/decision-maker with understanding of their medical conditions, weighing benefits/burdens of treatment options, for clarification of goals of treatment. Additionally will assist with any symptoms of palliative concern Thank you for the opportunity to participate in the care of Mr. Mcfarland. Attestation To help prompt me to consider important information that might be impacting today's encounter and assessment, information from prior notes written by myself or my colleagues may have been "brought forward" into today's note. My signature on this note, however, is an attestation that I personally performed the exam, history, and/or decision-making noted today, and, unless otherwise indicated, the interactions with patient, family, and staff as well as the review of records all occurred today. I also attest that the listed assessment and stated plan reflect my best clinical judgment today based on the combination of historical information, prior notes, and today's exam/ interactions. When time spent is documented, it refers only to time spent today by the signer, or if indicated, combined time spent today by collaborating physician/nurse practitioner. Flavia Zavaleta May 06, 2017 15:38
[2017-05-06] MEDS: SULFAMETHOXAZOLE-TRIMETHOPRIM 800-160 MG/20 ML UDC PO SCH (16:51)
[2017-05-06] MEDS: RESP: ALBUTEROL 2.5 MG/IPRATROPIUM 0.5 MG NEB (SCH) NEB ×2 (17:30→20:29)
--- NOTE | 2017-05-06 19:39 | ECHRPT ---
Indication: HEART FAILURE CONCLUSIONS Technically difficult study The left ventricular systolic function is grossly normal on limited imaging. Mild concentric left ventricular hypertrophy. Mild mitral valve regurgitation. There is mild tricuspid valve regurgitation. BP: 127 / 84 HR: 106 Rhythm: Atrial fibrillation, Atrial flut ter MEASUREMENTS (Male / Female) Normal Values Technical Quality:Technically difficult study 2D ECHO LVOT Diameter 1.8 cm Aortic Root Diameter 3.4 cm M-MODE LV Diastolic Diameter MM 5.0 cm 4.2 - 5.9 / 3.9 - 5.3 cm LV Systolic Diameter MM 3.3 cm LV Ejection Fraction MM Teich 64.7 % IVS Diastolic Thickness MM 1.2 cm 0.6 - 1.0 / 0.6 - 0.9 cm LVPW Diastolic Thickness MM 1.2 cm 0.6 - 1.0 / 0.6 - 0.9 cm LV Relative Wall Thickness MM 0.5 0.24 - 0.42 / 0.22 - 0.42 RV Diastolic Diameter MM 3.1 cm DOPPLER AV Peak Velocity 75.7 cm/s AV Peak Gradient 2.3 mmHg AV Mean Gradient 1.4 mmHg AV Velocity Time Integral 13.6 cm LVOT Peak Velocity 62.2 cm/s LVOT Peak Gradient 1.5 mmHg LVOT Velocity Time Integral 10.7 cm AV Area Cont Eq vti 2.0 cm AV Area Cont Eq pk 2.1 cm Mitral E Point Velocity 62.0 cm/s LV E' Lateral Velocity 10.1 cm/s Mitral E to LV E' Lateral Ratio 6.1 LV E' Septal Velocity 8.2 cm/s Mitral E to LV E' Septal Ratio 7.6 TR Peak Velocity 240.0 cm/s TR Peak Gradient 23.0 mmHg Right Atrial Pressure 10.0 mmHg Pulmonary Artery Systolic Pressu 33.0 mmHg Right Ventricular Systolic Press 33.0 mmHg FINDINGS LEFT VENTRICLE Normal left ventricular size. Mild concentric left ventricular hypertrophy. The left ventricular systolic function is grossly normal on limited imaging. RIGHT VENTRICLE Grossly normal LEFT ATRIUM The left atrial size is moderately dilated. RIGHT ATRIUM The right atrial size is moderately dilated. ATRIAL SEPTUM The interatrial septum not well visualized. AORTA The aortic root and proximal ascending aorta are not well visualized. MITRAL VALVE Grossly normal. Mild mitral valve regurgitation. No mitral valve stenosis. AORTIC VALVE The aortic valve is not well visualized. TRICUSPID VALVE There is mild tricuspid valve regurgitation. The estimated pulmonary arterial pressure is 33 mmHg. PULMONARY VALVE The pulmonary valve is not well visualized. VESSELS The inferior vena cava was not well visualized. PERICARDIUM No pericardial effusion. Bill Oneal DO (Electronically Signed) Final Date:06 May 2017 19:38
[2017-05-06] MEDS: CHLORHEXIDINE 0.12% (ORAL KIT) 15 ML CUP MT SCH (20:00)
[2017-05-06] MEDS ORDERED: CHLORHEXIDINE 0.12% (ORAL KIT) 15 ML CUP MT SCH (20:00)
[2017-05-06] MEDS: DOCUSATE SODIUM 50 MG/SENNA 8.6 MG TAB PEG SCH (20:55)
[2017-05-06] MEDS: FAMOTIDINE 20 MG/2 ML VIAL IV PUSH SCH (20:55)
--- NOTE | 2017-05-06 20:56 | MB ---
cc: Gentry Haskins MD DATE OF CONSULT: CHIEF COMPLAINT: Possible vocal cord dysfunction with stridor. HISTORY: The patient is a pleasant 87-year-old male initially admitted to outside facility 04/10 after a fall. He underwent cervical surgery with anterior and posterior approach. His hospital course was complicated with numerous events including hematoma, cord compression and others which he had multiple followup procedures as well to maintain his stability. Blood cultures of note grew MSSA. The patient was noted to have some stridor and there was concern for possible vocal cord dysfunction. Upon my initial evaluation of patient at 7:00 a.m. of 05/06/2017 the patient was noted to be stridorous, however, he had no desaturations. In speaking with his nurses as well, he does not have any desaturations toward the clinical care manager either. However, he was having extensive copious secretions that he was coughing up. My numerous flexible fiberoptic laryngoscopy attempts were not able to fully visualize the vocal cords because of the copious secretions and his strong gag reflex. During the examination the patient was coughing up large amount of mucus which nursing notes that he has been producing as well. The patient's care was discussed with the critical care physician and they noted that although he was stridorous, his saturations were currently stable but because of the extensiveness of this thick mucoid secretions, he needed to be on airway watch and we discussed the likelihood of an airway situation continuing to downtrend. The stridor worsened and the patient did get further airway compromise for which he underwent intubation followed by tracheostomy. Will continue to follow the patient. Thank you for this consultation. Gentry Haskins MD PCC/rt , 07:26 PM , 08:54 PM [facility]
--- NOTE | 2017-05-06 21:27 | MB ---
cc: Patrick Castro MD, James A MD DATE OF CONSULT: 05/06/2017 REASON FOR CONSULTATION: Posterior cervical wound infection. HISTORY OF PRESENT ILLNESS: An 87-year-old gentleman who apparently suffered from cervical spinal cord injury in 03/2017 in [place] and underwent surgery anterior C5 to C7 fusion and subsequent C4 to C7 fusion with lateral mass fixation and anterior plate placement. He had a postoperative infection in the posterior cervical aspect and about a week ago underwent incision and debridement with reportedly positive cultures. He also had bacteremia at this time and has been on antibiotics. He had a central spinal cord injury and was transferred to rehab facility locally. He has dysphagia and had a PEG tube placement prior to transfer here and also had difficulty with his vocal cords and ended up getting a tracheostomy and was transferred to intensive care unit today after being admitted to [facility] 2 days ago for respiratory failure. CT of the cervical spine yesterday reveals the anterior C5 to C7 plate, cage and posterior C4 to C7 lateral mass screws and rods. There is also a fluid collection subcutaneous overlying the spinous process but not near the spinal canal. The C7 screws appear to involve the foramen transverse area and possibly extending to the nerve root foramen also. He has had drainage from his posterior cervical wound with a dressing in place along with sutures. He is currently on Ancef and Bactrim and also followed by infectious disease for posterior cervical wound cultures growing out methicillin sensitive Staph aureus. PAST MEDICAL HISTORY: Cervical spine fracture status post anterior and posterior fusion with postoperative posterior cervical infection, status post I and D a week ago, all undertaken in [facility] apparently in [place]. He also has PEG tube placement for dysphagia and now has tracheostomy tube on ventilator support. Atrial fibrillation, kidney stones, bilateral hip replacement. MEDICATIONS: Currently include Lovenox 30 mg daily, Cardura, Pepcid, PeriColace, albuterol, Ancef, Bactrim, Robaxin, Roxicodone p.r.n., propofol and fentanyl drips. ALLERGIES: ASPIRIN, IBUPROFEN. LABORATORY DATA: White blood cell count 8.2, hemoglobin 9.7, platelet count of 232, sed rate of 48. Sodium 140, potassium 3.8, BUN 8, creatinine 0.54, glucose 156. PT 10.5, INR 1.0, PTT 27.1. REVIEW OF SYSTEMS: Unobtainable. Patient is intubated and sedated. SOCIAL HISTORY: He is . Former smoker and he drinks a couple of beers a day. FAMILY HISTORY: Unobtainable. There is no current family here. PHYSICAL EXAMINATION: VITAL SIGNS: Temperature 98.1, pulse is 86, respiratory rate 23, blood pressure 115/65, oxygen saturation is 97% on 50% FIO2. HEAD: He has a right posterofrontal small laceration with sutures in place. NECK: Immobilized in a [place] J collar with a tracheostomy in place. Anterior cervical incision cannot be visualized. Posterior cervical incision is midline, has sutures in place, no erythema but there is serosanguineous type fluid drainage noted on the dressing. I cannot palpate any subcutaneous fluid collection or express any fluid. Vertical mattress interrupted stitches are in place. CHEST: Clear bilaterally. HEART: Regular, normal S1, S2, no murmurs. ABDOMEN: Soft, non-tender. No hepatosplenomegaly noted. EXTREMITIES: He has significant edema in the upper and lower extremities with no deformities. GENERAL: This is an elderly male on ventilator support, sedated, lying in bed in the intensive care unit. EYES: No conjunctivitis or icterus of sclerae. SKIN: He has extensive edema in his hands and legs with the posterior cervical wound with serosanguineous type drainage on the dressing but no erythema. NEUROLOGIC: He opens his eyes when sedation is held. Pupils are equal and reactive. He follows simple commands in the upper and lower extremities although he is not cooperative enough for full muscle strength evaluation, equivocal Babinski response. He cannot make a fist with his hands or extend his hand but can give me a slight squeeze and wiggle his toes. IMPRESSION: 1. Cervical cord injury with cervical fractures in 03/2017, status post anterior and posterior cervical spine fusion in hospital in [place] with subsequent posterior cervical wound infection, status post debridement a week ago with methicillin sensitive Staphylococcus aureus growth. There appears to be some residual subcutaneous soft tissue fluid collection, question of seroma versus persistent infection, although this does not appear to extend into the spinal canal. Reportedly the posterior cervical infection did not extend to the instrumentation. 2. Respiratory failure with dysphagia, status post tracheostomy and percutaneous endoscopic gastrostomy tube placement. 3. Septic shock. PLAN: Continue with the current antibiotics for his cervical wound infection along with septicemia. Once his condition is more stable, then I would recommend that he be transferred to [facility] in [place] for further management by his surgeons who performed his cervical spine surgeries and they can determine whether if this infection of the cervical spine does not resolve, to proceed with further debridement or instrumentation removal in case deeper infection progression. There is nothing I can offer at this point from neurosurgical standpoint that needs emergent management. But in any case, I think he should be transferred back to the facility that he had his recent surgeries for further management. Patrick Castro MD RKK/rt , 07:28 PM , 09:25 PM TAMMIE
[2017-05-07] VITALS (17 sets, daily range): BP systolic 85–131; BP diastolic 48–72; PULSE 82–110; RESP 14–30; TEMP 97–99.1; O2SAT 98–100
[2017-05-07] MEDS ORDERED: POTASSIUM CHLORIDE 25 MEQ EFFERVESCENT TAB PO PRN (00:15)
[2017-05-07] MEDS ORDERED: SODIUM PHOSPHATE INJ 30 MMOL in SODIUM CHLOR 0.9% 250 ML INJ 240 ML IV PRN (00:15)
[2017-05-07] MEDS ORDERED: MAGNESIUM SULFATE INJ 4 GM in SODIUM CHLORIDE 0.9% INJ 92 ML IV PRN (00:15)
[2017-05-07] MEDS ORDERED: POTASSIUM CHLOR 20 MEQ PREMIX 100 ML IV PRN ×2 (00:15)
[2017-05-07] MEDS ORDERED: POTASSIUM PHOSPHATE MONOBASIC 500 MG TAB PO/TUBE PRN (00:15)
[2017-05-07] MEDS ORDERED: MAGNESIUM OXIDE 400 MG TAB PO PRN (00:15)
[2017-05-07] MEDS ORDERED: POTASSIUM CHLOR 40 MEQ PREMIX 100 ML IV PRN ×2 (00:15)
[2017-05-07] MEDS ORDERED: MAGNESIUM SULFATE INJ 2 GM in SODIUM CHLORIDE 0.9% INJ 96 ML IV PRN (00:15)
[2017-05-07] MEDS ORDERED: POTASSIUM PHOSPHATE MONOBASIC 500 MG TAB PO PRN (00:15)
[2017-05-07] MEDS ORDERED: POTASSIUM PHOSPHATE INJ 30 MMOL in SODIUM CHLOR 0.9% 250 ML INJ 250 ML IV PRN (00:15)
[2017-05-07 01:03] LABS: HEMATOCRIT 26.8 % (39.0-51.0); HEMOGLOBIN 9.1 GM/DL (13.0-17.0); MEAN CORPUSCULAR HEMOGLOBIN 31.3 PG (27.0-34.0); MEAN PLATELET VOLUME 7.2 FL (7.0-11.0); PLATELET COUNT 206 TH/MM3 (150-450); RED BLOOD COUNT 2.91 MIL/MM3 (4.50-5.90); RED CELL DISTRIBUTION WIDTH 15.5 % (11.6-17.2); WHITE BLOOD COUNT 4.8 TH/MM3 (4.0-11.0)
[2017-05-07 01:20] LABS: ALBUMIN 2.1 GM/DL (3.4-5.0); AST (GOT) 13 U/L (15-37); BICARBONATE 28.3 MEQ/L (21.0-32.0); BLOOD UREA NITROGEN 11 MG/DL (7-18); CALCIUM 7.9 MG/DL (8.5-10.1); CHLORIDE 104 MEQ/L (98-107); CREATININE 0.72 MG/DL (0.60-1.30); GLOMERULAR FILTRATION RATE 104 ML/MIN (>89); GLUCOSE,RANDOM 167 MG/DL (74-106); SODIUM (NA) 140 MEQ/L (136-145)
[2017-05-07 01:23] LABS: ALKALINE PHOSPHATASE 60 U/L (45-117); ALT (GPT) 9 U/L (12-78); PHOSPHORUS 2.9 MG/DL (2.5-4.9); TOTAL BILIRUBIN ADULT 0.4 MG/DL (0.2-1.0); TOTAL PROTEIN 5.5 GM/DL (6.4-8.2)
[2017-05-07] MEDS: PROPOFOL 1000 MG/100 ML INJ 100 ML IV PRN ×2 (02:30→05:50)
[2017-05-07] MEDS: SULFAMETHOXAZOLE-TRIMETHOPRIM 800-160 MG/20 ML UDC PO SCH ×2 (02:37→16:05)
[2017-05-07] MEDS: RESP: ALBUTEROL 2.5 MG/IPRATROPIUM 0.5 MG NEB (SCH) NEB ×4 (03:23→21:31)
[2017-05-07] MEDS: CHLORHEXIDINE GLUCONATE 2 % 1 PACK (2 CLOTHS) TOP SCH (04:00)
[2017-05-07 05:19] LABS: AUTOMATED NEUTROPHIL # 5.8 TH/MM3 (1.8-7.7); BASOPHIL % 0.4 % (0.0-2.0); LYMPHOCYTE # 0.7 TH/MM3 (1.0-4.8); MEAN CELL VOLUME 91.2 FL (80.0-100.0); MEAN CORPUSCULAR HEMOGLOBIN 30.3 PG (27.0-34.0); MEAN CORPUSCULAR HGB CONC 33.2 % (32.0-36.0); MEAN PLATELET VOLUME 7.8 FL (7.0-11.0); MONOCYTE # 0.4 TH/MM3 (0-0.9); NEUT % 83.6 % (16.0-70.0); PLATELET COUNT 200 TH/MM3 (150-450); RED BLOOD COUNT 2.96 MIL/MM3 (4.50-5.90); RED CELL DISTRIBUTION WIDTH 15.6 % (11.6-17.2); WHITE BLOOD COUNT 6.9 TH/MM3 (4.0-11.0)
[2017-05-07] MEDS: ceFAZolin 2 GM/50 ML BAG IV SCH ×3 (06:41→22:03)
[2017-05-07] MEDS: CHLORHEXIDINE 0.12% (ORAL KIT) 15 ML CUP MT SCH ×2 (08:00→20:00)
[2017-05-07 08:58] LABS: ALBUMIN 2.1 GM/DL (3.4-5.0); ALT (GPT) 6 U/L (12-78); AST (GOT) 23 U/L (15-37); BICARBONATE 30.3 MEQ/L (21.0-32.0); CALCIUM 7.9 MG/DL (8.5-10.1); CHLORIDE 103 MEQ/L (98-107); CREATININE 0.82 MG/DL (0.60-1.30); GLOMERULAR FILTRATION RATE 89 ML/MIN (>89); GLUCOSE,RANDOM 124 MG/DL (74-106); SODIUM (NA) 140 MEQ/L (136-145)
[2017-05-07 09:00] LABS: ALKALINE PHOSPHATASE 60 U/L (45-117); TOTAL BILIRUBIN ADULT 0.4 MG/DL (0.2-1.0); TOTAL PROTEIN 5.7 GM/DL (6.4-8.2)
[2017-05-07] MEDS: SODIUM CHLORIDE 0.9% FLUSH 10 ML FLUSH IV FLUSH SCH ×2 (09:00→20:15)
[2017-05-07] MEDS: DOXAZOSIN MESYLATE 2 MG TAB PO SCH (09:00)
[2017-05-07 09:01] LABS: BLOOD UREA NITROGEN 13 MG/DL (7-18)
[2017-05-07] MEDS: FAMOTIDINE 20 MG/2 ML VIAL IV PUSH SCH ×2 (10:09→20:15)
[2017-05-07] MEDS: ENOXAPARIN SODIUM 30 MG/0.3 ML SYRINGE SQ SCH (10:10)
[2017-05-07] MEDS: DOCUSATE SODIUM 50 MG/SENNA 8.6 MG TAB PEG SCH ×2 (10:10→20:15)
--- NOTE | 2017-05-07 12:15 | HHI.CCPN ---
Subjective Remarks/Hospital Course 87-year-old male was initially admitted to outside facility on April 10, 2017 after a fall and was found to have an unstable C5-C6 fracture for which she underwent C6 partial corpectomy, cervical discectomy anterior approach, fusion C5-C6, posterior cervical fusion C4-C7. His hospital course at that time was complicated by hematoma with cord compression for which she had repeat surgery on 04/12 with evacuation of hematoma following which he was discharged to a rehab facility however started having persistent drainage from posterior cervical neck fusion site with dysphagia and was readmitted on April 28. MSSA. On his admission April 28 at [facility] he was evaluated by multiple specialists including ENT, GI, and infectious disease. Infectious disease had the neurosurgical involved because of the persistent drainage from his neck fusion. Underwent PEG tube placement. Blood cultures done at rehab facility grew out MSSA. Patient underwent repeat surgery on April 29 and April 30 for posterior cervical wound with incision and sharp debridement and wound cultures from that surgery grew out MSSA. Blood cultures from that admission were negative. Patient was subsequently transferred to [facility] on April. He was evaluated by hospitalist service as well as ID and was continued on Ancef IV. Patient developed problems with stridor and was evaluated by ENT and underwent CT C-spine on 05/[address] head[address] CT C- spine revealed fluid collection at the level of C3 with hardware in place. This morning ENT attempted laryngoscopy however patient stopped the procedure. He has been having problem with secretions. Subsequently developed worsening stridor for which a rapid response was called and patient was transferred to the ICU. He received Solu-Medrol 125 mg IV as well as racemic epinephrine by nebulizer treatment prior to transfer. I evaluated the patient immediately on his arrival to the ICU. At that time he was on a facemask maintaining O2 sats 100%. He did have audible stridor however did have a bee sting movement. I spoke with the ENT Dr. Reyes who evaluated the patient on [facility] and notified him of events including stridor. He felt patient had vocal cord dysfunction at this time which he anticipated would improve with time however in the meanwhile we agreed that patient needed to be watched in the ICU and that he may possibly need intubation. History was obtained by reviewing records and discussion with nursing staff and Dr. Reyes. 03/10: Tracheostomy site clean and dry. Tolerating SBTs well as expected. Convert to T-piece, may need PEG but I'll bet he will swallow OK with an uncuffed trach tube. Objective Vital Signs Date Time Temp Pulse Resp B/P (MAP) Pulse Ox O2 Delivery O2 Flow Rate FiO2 05/07/17 08:20 100 35 05/07/17 07:00 Trach Collar 05/07/17 06:00 82 05/07/17 06:00 97.8 14 104/56 (72) 05/06/17 09:40 3.00 Intake and Output 05/07/17 05/07/17 05/08/17 08:00 16:00 00:00 Intake Total 894 ml Output Total 925 ml Balance -31 ml Result Diagram: 05/07/17 0414 05/07/17 0808 Objective Remarks HEENT/Neuro: No pallor or icterus, tongue moist, CESAR, responds with head nod, nonfocal grossly, moving all 4 extremities Neck: [place] J collar in place, new #[address] Chest/pulmonary: Good air entry bilaterally, comfortable, clear. Cardiovascular: S1-S2 regular no gallop or murmur, No JVD. GI/abdomen: Soft, nontender, bowel sounds present. PEG tube in place Extremities: Warm bilaterally, no edema. Well perfsued. A/P Assessment and Plan 87-year-old male with past medical history significant for atrial fibrillation, hypertension, anemia and osteoarthritis status post bilateral total hip replacements who sustained a fall in March resulting in unstable C6 fracture and spinal cord injury s/p ACDF C56, partial corpectomy C6 and posterior decompression and fusion C4 to C7 complicated by postoperative hematoma requiring evacuation and postoperative wound infection with MSSA now transferred from [facility] for worsening stridor with vocal cord dysfunction and C3 level fluid collection Unstable C6 fracture s/p fall 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 Continues to have stridor. Evaluated patient again with Dr. Chin and plan to proceed with intubation for airway protection and subsequently percutaneous tracheostomy Patient will be intubated and placed on mechanical ventilation and subsequently will proceed with percutaneous tracheostomy. ENT following and to decide further management of fluid collection at C3 level. Will get neurosurgical consult as well for evaluation of fluid collection at C3 level. Trach placed 05/07 for stable airway MSSA sepsis I&D cervical wound with cultures positive for MSSA. Repeat cultures -ID consulted by primary team. Plan to continue IV Ancef for 6 weeks from date of surgery 04/29. -Per ID, plan to refer to Dr. Bean at time of discharge, questionable lifelong suppression due to hardware placement -Follow ESR/CRP Bilateral upper extremity edema -Doppler studies reveal nonocclusive thrombus in the right axillary and brachial veins. 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 Likely dysphonia multifactorial with poor respiratory effort, dry mucosa, decreased cord mobility and thick mucus. -CT neck for further evaluation -suction prn -ENT consulted by primary team., Seen by ENT scope -aspiration precautions UTI -started on Bactrim by primary team -follow up on final UCX results Atrial fibrillation Rate controlled -previously on Plavix per review of medical record -rehab team to contact NS to see when anticoagulation can be resumed -continue to monitor HR Hypertension -Continue on Cardura 2 mg daily -To monitor BP and adjust treatment accordingly Anemia, suspect postoperative anemia of acute blood loss -Hemoglobin 9.7 -Unknown baseline -Monitor for any active bleeding -Monitor CBC as indicated Incidental finding of [address] chest suggestive of spiculated mass -hospitalist discussed finding with and patient on [place] [facility] -Recommend PET scan as outpatient Confusion, patient hallucinating -?sundowning -Neuropsychologist consulted by primary team -CT head DVT prophylaxis -Bilateral SCD/SARIKA hose/ lovenox starting 05/07 Patient's son at bedside was informed regarding current status and plan of care and voiced understanding. Dr. Lopez spoke with patient's and informed her regarding need for intubation and tracheostomy. Overall impression: Airway now secured with tracheostomy. Exchange for fenestrated tube soon so he can talk. Ernie Chin MD May 07, 2017 12:15
--- NOTE | 2017-05-07 16:14 | HHI.IDPN ---
Subjective Subjective Remarks Patient is an 87-year-old male, who was initially admitted April 10 in another facility after a fall. He was diagnosed to have traumatic C5 to C6 fracture. He underwent C6 partial corpectomy, cervical discectomy anterior approach, fusion C5-C6, posterior cervical fusion C4 to C7. This was complicated by hematoma with cord compression, and he underwent surgery again on April 12 and had evacuation of the hematoma. From there he was discharged to a rehabilitation facility. In the rehabilitation apparently he was having persistent drainage from the posterior cervical neck fusion. He was also having problem with dysphagia. He was admitted again on April 28 for PEG placement. In the rehabilitation facility he was having some fatigue and generalized malaise. He was also noted to have leukocytosis. Blood cultures done in the rehabilitation facility grew MSSA. On his admission April 28 at [facility] he was evaluated by multiple specialists including ENT , GI, and infectious disease. Infectious disease had the neurosurgical involved because of the persistent drainage from his neck fusion. Patient underwent surgery on April 29 and had reexploration of the posterior cervical wound with incision and sharp debridement. Wound culture from that surgery grew MSSA. The operative note was reviewed, and during surgery there was no hardware exposed. He had blood cultures done during that admission, and it came back negative. Patient was stable and transferred to [facility] rehabilitation on May 04. This morning patient apparently developed significant shortness of breath, and stridor. ENT was in the process of evaluating him but he was not completed. Patient was transferred to the intensive care unit for respiratory decompensation. He had undergone tracheostomy placement. He is afebrile. His WBC is normal. His chest x-ray yesterday is normal. Abdominal x-ray yesterday also showed that the PEG tube is in the stomach, and in good position. Infectious disease consultation has been requested to assist with antibiotic management in patient with MSSA bacteremia Notes reviewed Temps ok Weaning per CCM Bronch C/S negative so far UC low colony count Yesika CXR 05/06 negative Antibiotics Current Medications Ancef Bactrim Medications (Trade) Dose Ordered Sig/Vikas Route Start Time Stop Time Status Last Admin (NS Flush) 2 ml UNSCH PRN IV FLUSH 05/06/17 10:15 (NS Flush) 2 ml BID IV FLUSH 05/06/17 11:00 05/06/17 20:55 (Duoneb Neb) 1 ampule Q6HR NEB NEB 05/06/17 16:00 05/07/17 15:45 (Duoneb Neb) 1 ampule Q4HR NEB PRN INH 05/06/17 10:15 05/06/17 11:15 (Peridex 0.12% Liq) 15 ml BID@08,20 MT 05/06/17 20:00 05/07/17 08:00 (Pepcid Inj) 20 mg Q12HR IV PUSH 05/06/17 21:00 05/07/17 10:09 (Lovenox Inj) 30 mg Q24H SQ 05/07/17 11:00 05/07/17 10:10 Miscellaneous Information 1 Q361D XX 05/06/17 10:15 (Chlorhexidine 2% Cloth) 3 pack Taper DAILY@04 TOP 05/07/17 04:00 05/03/18 03:59 (Chlorhexidine 2% Cloth) 3 pack UNSCH PRN TOP 05/06/17 10:15 Propofol 100 ml @ 2.73 mls/hr TITRATE PRN IV 05/06/17 12:00 05/07/17 05:50 (Tylenol 650 Mg/ 20 ml Liq) 650 mg Q4H PRN PEG 05/06/17 12:45 (Ancef 2 Gm Premix) 2 gm Q8H IV 05/06/17 15:00 05/07/17 16:05 (Cardura) 2 mg DAILY PO 05/07/17 09:00 (Robaxin) 500 mg QID PRN PO 05/06/17 12:45 (Roxicodone) 5 mg Q4H PRN PO 05/06/17 12:45 (Marge-Colace) 1 tab BID PEG 05/06/17 21:00 05/07/17 10:10 (Bactrim 800-160 Mg/20 ml Liq) 20 ml Q12H PO 05/06/17 15:00 05/07/17 16:05 Potassium Chloride 100 ml @ 50 mls/hr Q2H PRN IV 05/07/17 00:15 Potassium Chloride 100 ml @ 50 mls/hr Q2H PRN IV 05/07/17 00:15 (K-Lyte Cl Eff) 50 meq UNSCH PRN PO 05/07/17 00:15 Potassium Chloride 100 ml @ 25 mls/hr UNSCH PRN IV 05/07/17 00:15 Potassium Chloride 100 ml @ 50 mls/hr Q2H PRN IV 05/07/17 00:15 Magnesium Sulfate 4 gm/Sodium Chloride 100 ml @ 50 mls/hr UNSCH PRN IV 05/07/17 00:15 (Mag-Ox) 800 mg UNSCH PRN PO 05/07/17 00:15 Magnesium Sulfate 2 gm/Sodium Chloride 100 ml @ 50 mls/hr UNSCH PRN IV 05/07/17 00:15 (K-Phos) 2,000 mg Q4H PRN PO 05/07/17 00:15 Sodium Phosphate 30 mmol/Sodium Chloride 250 ml @ 42 mls/hr UNSCH PRN IV 05/07/17 00:15 (K-Phos) 2,000 mg UNSCH PRN PO/TUBE 05/07/17 00:15 Potassium Phosphate 30 mmol/ Sodium Chloride 260 ml @ 42 mls/hr UNSCH PRN IV 05/07/17 00:15 Past Medical History Atrial fibrillation Dysphagia Traumatic C5-C6 fracture from a fall Recent MSSA septicemia Kidney stones Past Surgical History Bilateral hip replacement PEG placement Cervical spine surgery March 2017 Allergies: Coded Allergies: aspirin (Unverified Allergy, Severe, RASH/SOB, 10/12/16) ibuprofen (Unverified Allergy, Severe, MOTRIN--RASH/SOB, 10/12/16) Objective . Vital Signs Date Time Temp Pulse Resp B/P (MAP) Pulse Ox O2 Delivery O2 Flow Rate FiO2 05/07/17 13:52 100 T-piece 35 05/07/17 12:09 100 35 05/07/17 08:20 100 35 05/07/17 08:00 98.8 90 30 94/51 (65) 100 05/07/17 07:00 35 05/07/17 07:00 100 Trach Collar 35 05/07/17 06:00 82 05/07/17 06:00 97.8 82 14 104/56 (72) 100 05/07/17 05:00 92 14 98/54 (69) 100 05/07/17 04:22 100 35 05/07/17 04:00 98 05/07/17 04:00 98.5 99 14 96/55 (69) 100 05/07/17 04:00 35 05/07/17 03:00 98 14 85/48 (60) 100 05/07/17 02:00 110 05/07/17 02:00 101 14 89/52 (64) 100 05/07/17 01:18 100 35 05/07/17 01:00 103 15 105/53 (70) 100 05/07/17 00:00 110 05/07/17 00:00 35 05/07/17 00:00 97.5 110 15 117/55 (75) 100 05/06/17 23:00 110 16 98/53 (68) 100 05/06/17 22:00 122 05/06/17 22:00 122 16 92/55 (67) 100 05/06/17 21:00 130 14 96/53 (67) 100 05/06/17 20:24 100 35 05/06/17 20:00 35 05/06/17 20:00 98.7 79 14 90/50 (63) 100 05/06/17 20:00 79 05/06/17 19:00 100 Trach Collar 35 05/06/17 18:00 86 23 115/65 (82) 97 05/06/17 18:00 86 05/06/17 16:45 100 50 . Laboratory Tests Test 05/07/17 00:47 05/07/17 04:14 White Blood Count 4.8 TH/MM3 6.9 TH/MM3 Red Blood Count 2.91 MIL/MM3 2.96 MIL/MM3 Hemoglobin 9.1 GM/DL 9.0 GM/DL Hematocrit 26.8 % 27.0 % Mean Corpuscular Volume 92.0 FL 91.2 FL Mean Corpuscular Hemoglobin 31.3 PG 30.3 PG Mean Corpuscular Hemoglobin Concent 34.0 % 33.2 % Red Cell Distribution Width 15.5 % 15.6 % Platelet Count 206 TH/MM3 200 TH/MM3 Mean Platelet Volume 7.2 FL 7.8 FL Neutrophils (%) (Auto) 83.6 % Lymphocytes (%) (Auto) 10.0 % Monocytes (%) (Auto) 6.0 % Eosinophils (%) (Auto) 0.0 % Basophils (%) (Auto) 0.4 % Neutrophils # (Auto) 5.8 TH/MM3 Lymphocytes # (Auto) 0.7 TH/MM3 Monocytes # (Auto) 0.4 TH/MM3 Eosinophils # (Auto) 0.0 TH/MM3 Basophils # (Auto) 0.0 TH/MM3 CBC Comment AUTO DIFF Differential Comment AUTO DIFF CONFIRMED Hematology Comments Laboratory Tests Test 05/07/17 00:47 05/07/17 08:08 Blood Urea Nitrogen 11 MG/DL 13 MG/DL Creatinine 0.72 MG/DL 0.82 MG/DL Random Glucose 167 MG/DL 124 MG/DL Total Protein 5.5 GM/DL 5.7 GM/DL Albumin 2.1 GM/DL 2.1 GM/DL Calcium Level 7.9 MG/DL 7.9 MG/DL Phosphorus Level 2.9 MG/DL Magnesium Level 2.0 MG/DL Alkaline Phosphatase 60 U/L 60 U/L Aspartate Amino Transf (AST/SGOT) 13 U/L 23 U/L Alanine Aminotransferase (ALT/SGPT) 9 U/L 6 U/L Total Bilirubin 0.4 MG/DL 0.4 MG/DL Sodium Level 140 MEQ/L 140 MEQ/L Potassium Level 3.6 MEQ/L 4.0 MEQ/L Chloride Level 104 MEQ/L 103 MEQ/L Carbon Dioxide Level 28.3 MEQ/L 30.3 MEQ/L Anion Gap 8 MEQ/L 7 MEQ/L Estimat Glomerular Filtration Rate 104 ML/MIN 89 ML/MIN Imaging Last Impressions Chest X-Ray 05/06/17 0000 Signed Impressions: Service Date/Time: Saturday, May 06, 2017 12:42 - CONCLUSION: Tracheostomy in good position. Guerrero Henry MD FACR Physical Exam GENERAL: Patient is a well-nourished, well-developed male, sedated on the vent, status post tracheostomy placement, not in respiratory distress. SKIN: Cool and dry. No generalized rash, no ecchymoses and no evidence of embolic lesions. HEAD: Atraumatic. Normocephalic. No temporal wasting, or tenderness. EYES: Pale conjunctiva. No petechia or hemorrhage. Pupils equal, round and reactive to light. No scleral icterus. No injection or drainage. EARS, NOSE AND THROAT: Nose without bleeding or purulent nasal discharge. NECK: Patient just had tracheostomy. He is wearing a cervical collar CARDIOVASCULAR: Regular rate and rhythm. No murmurs, rubs or gallops heard RESPIRATORY: Clear breath sounds anteriorly, no rhonchi or wheezing appreciated currently ABDOMEN: Soft, nondistended, no reaction to deep palpation.. Bowel sounds present and normoactive. No organomegaly. PEG site ok EXTREMITIES: No clubbing, cyanosis. Has edema both hands, mild pedal edema. NEUROLOGICAL: Sedated PSYCHIATRIC: Unable to assess LINE: No evidence of infection midline RUE Assessment & Plan Remarks IMPRESSION Stridor, etiology? ?poor handling of secretions 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 MSSA sepsis, due to wound infection posterior neck fusion C4-C7 - S/P incision and sharp debridement April 29 - repeat CT with fluid collection close to hardware Persistent neck wound drainage, C/S negative Traumatic C5-C6 fracture S/P surgery; reop for hematoma and cord compression Mar 2017 Prob with COPD, bronchitis Dysphagia, S/P PEG S/P tracheostomy RECOMMENDATION Continue IV ANcef - plan 6 weeks from date of surgery 04/29 - when he gets D/C will refer to Dr Bean, ?chronic suppression since he has hardware Follow C/S Repeat 2 BC Also on Bactrim Monitor progress Jaquelin Moran MD May 07, 2017 16:14
--- NOTE | 2017-05-07 20:50 | MB ---
cc: Gentry Haskins MD, Perrin C MD DATE OF CONSULT: 05/07/2017 Of note, the patient has been stable overnight status post his tracheotomy placement. He continues to receive his IV antibiotics for his infection. He still continues to be on airway support. On evaluation of his flexible fiberoptic laryngoscopy, initial evaluation today had thick mucoid secretions present pooling in the larynx and the posterior oropharynx. After deep suctioning to the back of the mouth, a large amount of thick mucus was suctioned from this area. After revisualization, I was able to see the vocal cords. Although the epiglottis had minimal edema, there was notable edema noted in the supraglottis posteriorly surrounding the arytenoids. The patient was comfortable with my examination. Although I saw what appeared to be some movement of the right true vocal cord, it was limited in nature and there was more decreased movement of the left true vocal cord on examination. Thus, there was hypomobility of the true vocal cords with the left true vocal cord more hypomobile than the right. There was also a great amount of secretions pooling over the larynx which was only able to be removed with deep suctioning through the oral cavity. ASSESSMENT: This is a pleasant 87-year-old male with a complicated medical and surgical history with current vocal cord dysfunction bilaterally, with the right moving more than the left. This may be multifactorial, but even if it is a stretch injury to the recurrent laryngeal nerves it will likely be at least a week prior to return of function if that is the case. In cases where there is the laryngeal nerve stretch injury, high-dose steroids are often used to expedite improvement. However, with patient's infection, he may not be a good candidate for high-dose Decadron. That is a decision to be made by the home team as they are balancing his complicated medical history. I recommend regular deep suction through the oral cavity as he obviously has a thick pooling of sections in this area as seen by myself and the nurse around 12:00 this afternoon. The patient will likely need to continue with a tracheotomy in the near future until ideally the vocal cord begin to recover function, if it is a stretch injury. Infectious Disease is on board with the home team to address the patient's infection status. I appreciate all teams' coordinated care. Thank you for this consultation. Gentry Haskins MD PCC/SA/rh , 12:40 PM , 08:[address] [facility] CENTERFabiola
[2017-05-08] VITALS (14 sets, daily range): BP systolic 118–139; BP diastolic 56–72; PULSE 76–92; RESP 14–18; TEMP 97.4–99.4; O2SAT 99–100
[2017-05-08] MEDS: SULFAMETHOXAZOLE-TRIMETHOPRIM 800-160 MG/20 ML UDC PO SCH ×2 (03:15→16:21)
[2017-05-08] MEDS: CHLORHEXIDINE GLUCONATE 2 % 1 PACK (2 CLOTHS) TOP SCH (03:15)
[2017-05-08] MEDS: RESP: ALBUTEROL 2.5 MG/IPRATROPIUM 0.5 MG NEB (SCH) NEB ×4 (03:44→22:20)
[2017-05-08] MEDS ORDERED: SODIUM CHLORID 0.9% 500 ML INJ 500 ML IV ONE ×2 (04:45→08:45)
[2017-05-08] MEDS: ceFAZolin 2 GM/50 ML BAG IV SCH ×3 (06:16→23:37)
[2017-05-08] MEDS: CHLORHEXIDINE 0.12% (ORAL KIT) 15 ML CUP MT SCH ×2 (08:00→19:41)
[2017-05-08] MEDS: DOXAZOSIN MESYLATE 2 MG TAB PO SCH (08:22)
[2017-05-08] MEDS: SODIUM CHLORIDE 0.9% FLUSH 10 ML FLUSH IV FLUSH SCH ×2 (08:22→19:41)
[2017-05-08] MEDS: DOCUSATE SODIUM 50 MG/SENNA 8.6 MG TAB PEG SCH ×2 (08:22→19:40)
[2017-05-08] MEDS: FAMOTIDINE 20 MG/2 ML VIAL IV PUSH SCH ×2 (08:22→19:40)
[2017-05-08] MEDS: FREE WATER G-TUBE SCH ×3 (08:45→17:49)
[2017-05-08] MEDS: SODIUM CHLOR 0.9% 1000 ML INJ 1,000 ML IV SCH (08:45)
--- NOTE | 2017-05-08 08:56 | HHI.CCPN ---
Subjective Remarks/Hospital Course 87-year-old male was initially admitted to outside facility on April 10, 2017 after a fall and was found to have an unstable C5-C6 fracture for which she underwent C6 partial corpectomy, cervical discectomy anterior approach, fusion C5-C6, posterior cervical fusion C4-C7. His hospital course at that time was complicated by hematoma with cord compression for which she had repeat surgery on 04/12 with evacuation of hematoma following which he was discharged to a rehab facility however started having persistent drainage from posterior cervical neck fusion site with dysphagia and was readmitted on April 28. MSSA. On his admission April 28 at [facility] he was evaluated by multiple specialists including ENT, GI, and infectious disease. Infectious disease had the neurosurgical involved because of the persistent drainage from his neck fusion. Underwent PEG tube placement. Blood cultures done at rehab facility grew out MSSA. Patient underwent repeat surgery on April 29 and April 30 for posterior cervical wound with incision and sharp debridement and wound cultures from that surgery grew out MSSA. Blood cultures from that admission were negative. Patient was subsequently transferred to [facility] on April. He was evaluated by hospitalist service as well as ID and was continued on Ancef IV. Patient developed problems with stridor and was evaluated by ENT and underwent CT C-spine on 05/[address] head[address] CT C- spine revealed fluid collection at the level of C3 with hardware in place. This morning ENT attempted laryngoscopy however patient stopped the procedure. He has been having problem with secretions. Subsequently developed worsening stridor for which a rapid response was called and patient was transferred to the ICU. He received Solu-Medrol 125 mg IV as well as racemic epinephrine by nebulizer treatment prior to transfer. I evaluated the patient immediately on his arrival to the ICU. At that time he was on a facemask maintaining O2 sats 100%. He did have audible stridor however did have a bee sting movement. I spoke with the ENT Dr. Reyes who evaluated the patient on [facility] and notified him of events including stridor. He felt patient had vocal cord dysfunction at this time which he anticipated would improve with time however in the meanwhile we agreed that patient needed to be watched in the ICU and that he may possibly need intubation. History was obtained by reviewing records and discussion with nursing staff and Dr. Reyes. 03/10: Tracheostomy site clean and dry. Tolerating SBTs well as expected. Convert to T-piece, may need PEG but I'll bet he will swallow OK with an uncuffed trach tube. 05/08: Remains off the ventilator since yesterday. On TP 28% o2. Good oxygen saturation. Good extremity strength Objective Vital Signs Date Time Temp Pulse Resp B/P (MAP) Pulse Ox O2 Delivery O2 Flow Rate FiO2 05/08/17 08:26 100 T-piece 28 05/08/17 06:00 81 05/08/17 04:00 98.3 18 121/56 (77) 05/07/17 21:36 6.00 Intake and Output 05/08/17 05/08/17 05/09/17 08:00 16:00 00:00 Intake Total 1395 ml Output Total 0 ml Balance 1395 ml Result Diagram: 05/07/17 0414 05/07/17 0808 Objective Remarks HEENT/Neuro: No pallor or icterus, tongue moist, CESAR, responds with head nod, nonfocal grossly, moving all 4 extremities. Good extremities strength Neck: [place] J collar in place, new #[address] On T piece Chest/pulmonary: Good air entry bilaterally, comfortable, clear. Maintaining good saturation on T piece Cardiovascular: S1-S2 regular no gallop or murmur, No JVD. GI/abdomen: Soft, nontender, bowel sounds present. PEG tube in place Extremities: Warm bilaterally, no edema. Well perfused. A/P Assessment and Plan 87-year-old male with past medical history significant for atrial fibrillation, hypertension, anemia and osteoarthritis status post bilateral total hip replacements who sustained a fall in March resulting in unstable C6 fracture and spinal cord injury s/p ACDF C56, partial corpectomy C6 and posterior decompression and fusion C4 to C7 complicated by postoperative hematoma requiring evacuation and postoperative wound infection with MSSA now transferred from [facility] for worsening stridor with vocal cord dysfunction and C3 level fluid collection NEURO: Unstable C6 fracture s/p fall Traumatic cervical cord injury Central cord syndrome s/p ACDF C5-C6, partial corpectomy C6 and staged posterior cervical decompression and fusion C4 to C7 complicated by hematoma with cord compression s/p evacuation -Comprehensive rehabilitation per primary team -Fall precautions -Pain management with bowel regimen -monitor wound healing -PT, OOB when cleared by neurosurgery RESP: Stridor Acute respiratory failure Vocal cord dysfunction Fluid collection at C3 level Patient received racemic epinephrine nebulizer treatment 2 as well as Solu- Medrol 125 mg IV at the time of transfer from [facility] to ICU. Continues to have stridor. Intubated and placed on mechanical ventilation and subsequently underwent percutaneous tracheostomy 05/06/17. ENT following and to decide further management of fluid collection at C3 level. Neurosurgical consult as well for evaluation of fluid collection at C3 level. Dr. Castro recommends continuing current antibiotic regimen and transfer to [facility] in [place] for further management by his surgeons who performed his cervical spine surgeries If deemed infectious fluid collection, will need with further debridement or instrumentation removal in case deeper infection Trach placed 05/07 for stable airway MSSA sepsis I&D cervical wound with cultures positive for MSSA. Repeat cultures -ID following. Plan to continue IV Ancef for 6 weeks from date of surgery 04/29. -Per ID, plan to refer to Dr. Bean at time of discharge, questionable lifelong suppression due to hardware placement -Follow ESR/CRP Bilateral upper extremity edema -Doppler studies reveal nonocclusive thrombus in the right axillary and brachial veins. 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 Likely dysphonia multifactorial with poor respiratory effort, dry mucosa, decreased cord mobility and thick mucus. -CT neck for further evaluation -suction prn -ENT consulted by primary team., Seen by ENT scope -aspiration precautions UTI -started on Bactrim by primary team. DC -follow up on final UCX results Atrial fibrillation Rate controlled -previously on Plavix per review of medical record -rehab team to contact NS to see when anticoagulation can be resumed -continue to monitor HR Hypertension -Continue on Cardura 2 mg daily -To monitor BP and adjust treatment accordingly Anemia, suspect postoperative anemia of acute blood loss -Hemoglobin 9.7 -Unknown baseline -Monitor for any active bleeding -Monitor CBC as indicated Incidental finding of [address] chest suggestive of spiculated mass -hospitalist discussed finding with and patient on [facility] -Recommend PET scan as outpatient Confusion, patient hallucinating -?sundowning -Neuropsychologist consulted by primary team -CT head DVT prophylaxis -Bilateral SCD/SARIKA hose/ Lovenox starting 05/07 Patient's son at bedside was informed regarding current status and plan of care and voiced understanding. Dr. Chin spoke with patient's and informed her regarding need for intubation and tracheostomy. Overall impression: Airway now secured with tracheostomy. Exchange for fenestrated tube soon so he can talk. Lainey Alejo MD May 08, 2017 08:56
[2017-05-08] MEDS: ENOXAPARIN SODIUM 30 MG/0.3 ML SYRINGE SQ SCH (11:39)
[2017-05-08 12:24] LABS: ALBUMIN 2.1 GM/DL (3.4-5.0); AST (GOT) 20 U/L (15-37); BICARBONATE 30.2 MEQ/L (21.0-32.0); BLOOD UREA NITROGEN 16 MG/DL (7-18); CALCIUM 8.3 MG/DL (8.5-10.1); CHLORIDE 104 MEQ/L (98-107); CREATININE 0.71 MG/DL (0.60-1.30); GLOMERULAR FILTRATION RATE 105 ML/MIN (>89); GLUCOSE,RANDOM 98 MG/DL (74-106); SODIUM (NA) 139 MEQ/L (136-145)
[2017-05-08 12:25] LABS: ALT (GPT) 9 U/L (12-78)
[2017-05-08 12:27] LABS: ALKALINE PHOSPHATASE 83 U/L (45-117); TOTAL BILIRUBIN ADULT 0.3 MG/DL (0.2-1.0); TOTAL PROTEIN 5.5 GM/DL (6.4-8.2)
--- NOTE | 2017-05-08 14:47 | HHI.IDPN ---
Subjective Subjective Remarks Patient is an 87-year-old male, who was initially admitted April 10 in another facility after a fall. He was diagnosed to have traumatic C5 to C6 fracture. He underwent C6 partial corpectomy, cervical discectomy anterior approach, fusion C5-C6, posterior cervical fusion C4 to C7. This was complicated by hematoma with cord compression, and he underwent surgery again on April 12 and had evacuation of the hematoma. From there he was discharged to a rehabilitation facility. In the rehabilitation apparently he was having persistent drainage from the posterior cervical neck fusion. He was also having problem with dysphagia. He was admitted again on April 28 for PEG placement. In the rehabilitation facility he was having some fatigue and generalized malaise. He was also noted to have leukocytosis. Blood cultures done in the rehabilitation facility grew MSSA. On his admission April 28 at [facility] he was evaluated by multiple specialists including ENT , GI, and infectious disease. Infectious disease had the neurosurgical involved because of the persistent drainage from his neck fusion. Patient underwent surgery on April 29 and had reexploration of the posterior cervical wound with incision and sharp debridement. Wound culture from that surgery grew MSSA. The operative note was reviewed, and during surgery there was no hardware exposed. He had blood cultures done during that admission, and it came back negative. Patient was stable and transferred to [place] inpatient rehabilitation on May 04. This morning patient apparently developed significant shortness of breath, and stridor. ENT was in the process of evaluating him but he was not completed. Patient was transferred to the intensive care unit for respiratory decompensation. He had undergone tracheostomy placement. He is afebrile. His WBC is normal. His chest x-ray yesterday is normal. Abdominal x-ray yesterday also showed that the PEG tube is in the stomach, and in good position. Infectious disease consultation has been requested to assist with antibiotic management in patient with MSSA bacteremia Notes reviewed D/W Dr Alejo Has been extubated Temps ok Bronch C/S negative UC low colony count Yesika CXR 05/06 negative At [place]: ESR 48, CRP 7.9 ENT evaluation noted Antibiotics Current Medications Ancef Bactrim Medications (Trade) Dose Ordered Sig/Vikas Route Start Time Stop Time Status Last Admin (NS Flush) 2 ml UNSCH PRN IV FLUSH 05/06/17 10:15 (NS Flush) 2 ml BID IV FLUSH 05/06/17 11:00 05/08/17 08:22 (Duoneb Neb) 1 ampule Q6HR NEB NEB 05/06/17 16:00 05/08/17 08:26 (Duoneb Neb) 1 ampule Q4HR NEB PRN INH 05/06/17 10:15 05/06/17 11:15 (Peridex 0.12% Liq) 15 ml BID@08,20 MT 05/06/17 20:00 05/08/17 08:00 (Pepcid Inj) 20 mg Q12HR IV PUSH 05/06/17 21:00 05/08/17 08:22 (Lovenox Inj) 30 mg Q24H SQ 05/07/17 11:00 05/08/17 11:39 Miscellaneous Information 1 Q361D XX 05/06/17 10:15 (Chlorhexidine 2% Cloth) 3 pack Taper DAILY@04 TOP 05/07/17 04:00 05/03/18 03:59 (Chlorhexidine 2% Cloth) 3 pack UNSCH PRN TOP 05/06/17 10:15 Propofol 100 ml @ 2.73 mls/hr TITRATE PRN IV 05/06/17 12:00 05/07/17 05:50 (Tylenol 650 Mg/ 20 ml Liq) 650 mg Q4H PRN PEG 05/06/17 12:45 05/07/17 20:14 (Ancef 2 Gm Premix) 2 gm Q8H IV 05/06/17 15:00 05/08/17 06:16 (Cardura) 2 mg DAILY PO 05/07/17 09:00 05/08/17 08:22 (Robaxin) 500 mg QID PRN PO 05/06/17 12:45 (Roxicodone) 5 mg Q4H PRN PO 05/06/17 12:45 05/07/17 20:15 (Marge-Colace) 1 tab BID PEG 05/06/17 21:00 05/08/17 08:22 (Bactrim 800-160 Mg/20 ml Liq) 20 ml Q12H PO 05/06/17 15:00 05/10/17 12:00 05/08/17 03:15 Potassium Chloride 100 ml @ 50 mls/hr Q2H PRN IV 05/07/17 00:15 Potassium Chloride 100 ml @ 50 mls/hr Q2H PRN IV 05/07/17 00:15 (K-Lyte Cl Eff) 50 meq UNSCH PRN PO 05/07/17 00:15 Potassium Chloride 100 ml @ 25 mls/hr UNSCH PRN IV 05/07/17 00:15 Potassium Chloride 100 ml @ 50 mls/hr Q2H PRN IV 05/07/17 00:15 Magnesium Sulfate 4 gm/Sodium Chloride 100 ml @ 50 mls/hr UNSCH PRN IV 05/07/17 00:15 (Mag-Ox) 800 mg UNSCH PRN PO 05/07/17 00:15 Magnesium Sulfate 2 gm/Sodium Chloride 100 ml @ 50 mls/hr UNSCH PRN IV 05/07/17 00:15 (K-Phos) 2,000 mg Q4H PRN PO 05/07/17 00:15 Sodium Phosphate 30 mmol/Sodium Chloride 250 ml @ 42 mls/hr UNSCH PRN IV 05/07/17 00:15 (K-Phos) 2,000 mg UNSCH PRN PO/TUBE 05/07/17 00:15 Potassium Phosphate 30 mmol/ Sodium Chloride 260 ml @ 42 mls/hr UNSCH PRN IV 05/07/17 00:15 (Free Water) 200 ml Q6HR G-TUBE 05/08/17 08:45 05/08/17 11:39 Sodium Chloride 1,000 ml @ 42 mls/hr [id number] IV 05/08/17 08:45 05/08/17 08:45 Past Medical History Atrial fibrillation Dysphagia Traumatic C5-C6 fracture from a fall Recent MSSA septicemia Kidney stones Past Surgical History Bilateral hip replacement PEG placement Cervical spine surgery March 2017 Allergies: Coded Allergies: aspirin (Unverified Allergy, Severe, RASH/SOB, 10/12/16) ibuprofen (Unverified Allergy, Severe, MOTRIN--RASH/SOB, 10/12/16) Objective . Vital Signs Date Time Temp Pulse Resp B/P (MAP) Pulse Ox O2 Delivery O2 Flow Rate FiO2 05/08/17 12:00 92 05/08/17 12:00 98.6 91 14 139/70 (93) 100 05/08/17 10:00 91 05/08/17 08:26 100 T-piece 28 05/08/17 08:00 98.5 88 15 126/65 (85) 100 05/08/17 08:00 88 05/08/17 07:00 100 T-Piece 28 05/08/17 06:00 81 05/08/17 04:00 87 05/08/17 04:00 98.3 82 18 121/56 (77) 100 05/08/17 03:00 84 05/08/17 00:00 97.4 86 16 127/63 (84) 100 05/08/17 00:00 86 05/07/17 22:00 94 05/07/17 21:36 98 T-piece 6.00 28 05/07/17 20:00 88 05/07/17 20:00 99.1 88 16 131/60 (83) 100 05/07/17 19:00 100 T-Piece 35 05/07/17 16:00 97.0 98 23 118/72 (87) 100 05/08/17 05/08/17 05/09/17 15:00 23:00 07:00 Intake Total 500 ml Balance 500 ml Intake IV Total 500 ml . Laboratory Tests Test 05/07/17 00:47 05/07/17 04:14 White Blood Count 4.8 TH/MM3 6.9 TH/MM3 Red Blood Count 2.91 MIL/MM3 2.96 MIL/MM3 Hemoglobin 9.1 GM/DL 9.0 GM/DL Hematocrit 26.8 % 27.0 % Mean Corpuscular Volume 92.0 FL 91.2 FL Mean Corpuscular Hemoglobin 31.3 PG 30.3 PG Mean Corpuscular Hemoglobin Concent 34.0 % 33.2 % Red Cell Distribution Width 15.5 % 15.6 % Platelet Count 206 TH/MM3 200 TH/MM3 Mean Platelet Volume 7.2 FL 7.8 FL Neutrophils (%) (Auto) 83.6 % Lymphocytes (%) (Auto) 10.0 % Monocytes (%) (Auto) 6.0 % Eosinophils (%) (Auto) 0.0 % Basophils (%) (Auto) 0.4 % Neutrophils # (Auto) 5.8 TH/MM3 Lymphocytes # (Auto) 0.7 TH/MM3 Monocytes # (Auto) 0.4 TH/MM3 Eosinophils # (Auto) 0.0 TH/MM3 Basophils # (Auto) 0.0 TH/MM3 CBC Comment AUTO DIFF Differential Comment AUTO DIFF CONFIRMED Hematology Comments Laboratory Tests Test 05/07/17 00:47 05/07/17 08:08 05/08/17 10:55 Blood Urea Nitrogen 11 MG/DL 13 MG/DL 16 MG/DL Creatinine 0.72 MG/DL 0.82 MG/DL 0.71 MG/DL Random Glucose 167 MG/DL 124 MG/DL 98 MG/DL Total Protein 5.5 GM/DL 5.7 GM/DL 5.5 GM/DL Albumin 2.1 GM/DL 2.1 GM/DL 2.1 GM/DL Calcium Level 7.9 MG/DL 7.9 MG/DL 8.3 MG/DL Phosphorus Level 2.9 MG/DL Magnesium Level 2.0 MG/DL Alkaline Phosphatase 60 U/L 60 U/L 83 U/L Aspartate Amino Transf (AST/SGOT) 13 U/L 23 U/L 20 U/L Alanine Aminotransferase (ALT/SGPT) 9 U/L 6 U/L 9 U/L Total Bilirubin 0.4 MG/DL 0.4 MG/DL 0.3 MG/DL Sodium Level 140 MEQ/L 140 MEQ/L 139 MEQ/L Potassium Level 3.6 MEQ/L 4.0 MEQ/L 4.3 MEQ/L Chloride Level 104 MEQ/L 103 MEQ/L 104 MEQ/L Carbon Dioxide Level 28.3 MEQ/L 30.3 MEQ/L 30.2 MEQ/L Anion Gap 8 MEQ/L 7 MEQ/L 5 MEQ/L Estimat Glomerular Filtration Rate 104 ML/MIN 89 ML/MIN 105 ML/MIN Imaging Last Impressions Chest X-Ray 05/06/17 0000 Signed Impressions: Service Date/Time: Saturday, May 06, 2017 12:42 - CONCLUSION: Tracheostomy in good position. Guerrero Henry MD FACR Physical Exam GENERAL: Patient is a well-nourished, well-developed male, awake, on T- piece, NAD SKIN: Cool and dry. No generalized rash, no ecchymoses and no evidence of embolic lesions. HEAD: Atraumatic. Normocephalic. No temporal wasting, or tenderness. EYES: Pale conjunctiva. No petechia or hemorrhage. Pupils equal, round and reactive to light. No scleral icterus. No injection or drainage. EARS, NOSE AND THROAT: Nose without bleeding or purulent nasal discharge. NECK: Trach site ok. He is wearing a cervical collar CARDIOVASCULAR: Regular rate and rhythm. No murmurs, rubs or gallops heard RESPIRATORY: Clear breath sounds anteriorly, no rhonchi or wheezing appreciated currently ABDOMEN: Soft, nondistended, no reaction to deep palpation.. Bowel sounds present and normoactive. No organomegaly. PEG site ok EXTREMITIES: No clubbing, cyanosis. Has edema both hands, mild pedal edema. NEUROLOGICAL: Awake and following PSYCHIATRIC: Cooperative LINE: No evidence of infection midline RUE Assessment & Plan Remarks IMPRESSION Stridor, etiology? ?poor handling of secretions - has had problem with dysphonia, dysphagia - previous eval showed vocal cord dysfunction MSSA sepsis, due to wound infection posterior neck fusion C4-C7 - S/P incision and sharp debridement April 29 - repeat CT with fluid collection close to hardware - wound C/S no growth Persistent neck wound drainage, C/S negative, ?seroma Traumatic C5-C6 fracture S/P surgery; reop for hematoma and cord compression Mar 2017 Prob with COPD, bronchitis Dysphagia, S/P PEG S/P tracheostomy RECOMMENDATION Continue IV ANcef - plan 6 weeks from date of surgery 04/29 - when he gets D/C will refer to Dr Bean, ?chronic suppression since he has hardware Also on Bactrim - to finish 05/10 Monitor progress Monitor pulmonary status D/W Dr Alejo Will repeat ESR and CRP Jaquelin Moran MD May 08, 2017 14:47
[2017-05-09] VITALS (11 sets, daily range): BP systolic 110–136; BP diastolic 51–75; PULSE 72–92; RESP 13–20; TEMP 98–99.9; O2SAT 95–100
[2017-05-09] MEDS: SULFAMETHOXAZOLE-TRIMETHOPRIM 800-160 MG/20 ML UDC PO SCH ×2 (03:10→16:12)
[2017-05-09] MEDS: CHLORHEXIDINE GLUCONATE 2 % 1 PACK (2 CLOTHS) TOP SCH (04:00)
[2017-05-09] MEDS: FREE WATER G-TUBE SCH ×3 (04:24→10:00)
[2017-05-09] MEDS: RESP: ALBUTEROL 2.5 MG/IPRATROPIUM 0.5 MG NEB (SCH) NEB ×4 (04:57→21:22)
[2017-05-09] MEDS: ceFAZolin 2 GM/50 ML BAG IV SCH ×3 (06:04→23:38)
[2017-05-09] MEDS: CHLORHEXIDINE 0.12% (ORAL KIT) 15 ML CUP MT SCH ×2 (08:00→20:55)
--- NOTE | 2017-05-09 08:57 | HHI.PR ---
Subjective Remarks in no acute distress. trach in place. denies pain. d/w the RN and no acute issues over night. Objective Vitals Vital Signs Date Time Temp Pulse Resp B/P (MAP) Pulse Ox O2 Delivery O2 Flow Rate FiO2 05/09/17 06:00 72 05/09/17 04:00 76 13 110/64 (79) 100 05/09/17 04:00 76 05/09/17 02:00 86 05/09/17 00:00 99.9 86 19 126/59 (81) 99 05/09/17 00:00 86 05/08/17 22:31 99 T-piece 6.00 28 05/08/17 22:00 76 05/08/17 20:00 87 05/08/17 20:00 99.4 87 14 121/72 (88) 100 05/08/17 19:00 100 T-Piece 28 05/08/17 18:00 77 05/08/17 16:00 98.8 88 17 118/57 (77) 100 05/08/17 16:00 81 05/08/17 14:00 88 05/08/17 12:00 92 05/08/17 12:00 98.6 91 14 139/70 (93) 100 05/08/17 10:00 91 I/O 05/08/17 05/08/17 05/08/17 05/09/17 05/09/17 05/09/17 07:00 15:00 23:00 07:00 15:00 23:00 Intake Total 1395 ml 500 ml 1053 ml 1700 ml Output Total 0 ml 650 ml 550 ml Balance 1395 ml 500 ml 403 ml 1150 ml Intake IV Total 1025 ml 500 ml 1340 ml Tube Feeding 370 ml 453 ml 360 ml Other 600 ml Output Urine Total 0 ml 650 ml 550 ml Bladder Scan Volume Amount 14 ml # Bowel Movements 0 Result Diagram: 05/07/17 0414 05/08/17 1055 Imaging Last Impressions Chest X-Ray 05/06/17 0000 Signed Impressions: Service Date/Time: Saturday, May 06, 2017 12:42 - CONCLUSION: Tracheostomy in good position. Guerrero Henry MD FACR Objective Remarks GENERAL: This is a well-nourished, well-developed patient, in no apparent distress. Neck; trach in place CARDIOVASCULAR: Regular rate and regular rhythm without murmurs, gallops, or rubs. RESPIRATORY: Clear to auscultation. Breath sounds equal bilaterally. No wheezes , rales, or rhonchi. GASTROINTESTINAL: Abdomen soft, non-tender, nondistended. Normal, active bowel sounds- PEG in place MUSCULOSKELETAL: Extremities without clubbing, cyanosis, or edema. NEURO: Alert & Oriented x4 to person, place, time, situation. Moves all ext x4 Medications and IVs Inpatient Medications Acetaminophen (Tylenol 650 Mg/ 20 ml Liq) 650 mg Q4H PRN PEG PAIN SCALE 1 TO 3 Last administered on 05/07/17 20:14; Start 05/06/17 at 12:45 Albuterol/ Ipratropium (Duoneb Neb) 1 ampule Q4HR NEB PRN INH SHORTNESS OF BREATH Last administered on 05/06/17 11:15; Start 05/06/17 at 10:15 Atropine Sulfate (Atropine Inj) 0.5 mg ONCE ONCE IV PUSH Last administered on 05/06/17 11:15; Start 05/06/17 at 11:15; Stop 05/06/17 at 11:26; Status DC Cefazolin Sodium/ Dextrose (Ancef 2 Gm Premix) 2 gm Q8H IV Last administered on 05/09/17 06:04; Start 05/06/17 at 15:00 Chlorhexidine Gluconate (Chlorhexidine 2% Cloth) 3 pack UNSCH PRN TOP HYGIENIC CARE; Start 05/06/17 at 10:15 Chlorhexidine Gluconate (Peridex 0.12% Liq) 15 ml BID@08,20 MT Last administered on 05/08/17 19:41; Start 05/06/17 at 20:00 Doxazosin Mesylate (Cardura) 2 mg DAILY PO Last administered on 05/08/17 08:22 ; Start 05/07/17 at 09:00 Enoxaparin Sodium (Lovenox Inj) 30 mg Q24H SQ Last administered on 05/08/17 11 :39; Start 05/07/17 at 11:00 Famotidine (Pepcid Inj) 20 mg Q12HR IV PUSH Last administered on 05/08/17 19: 40; Start 05/06/17 at 21:00 Fentanyl Citrate 250 ml @ 5 mls/hr TITRATE PRN IV SEDATION Last administered on 05/06/17at 11:34; Start 05/06/17 at 12:00; Stop 05/06/17 at 23:00; Status DC Fentanyl Citrate (fentaNYL INJ) 100 mcg ONCE ONCE IV PUSH Last administered on 05/06/17at 12:14; Start 05/06/17 at 12:00; Stop 05/06/17 at 17:09; Status DC Magnesium Oxide (Mag-Ox) 800 mg UNSCH PRN PO For Magnesium 1.2 - 1.6 mg/dL; Start 05/07/17 at 00:15 Magnesium Sulfate 2 gm/Sodium Chloride 100 ml @ 50 mls/hr UNSCH PRN IV For Magnesium 1.2 - 1.6 mg/dL; Start 05/07/17 at 00:15 Magnesium Sulfate 4 gm/Sodium Chloride 100 ml @ 50 mls/hr UNSCH PRN IV For Magnesium 0.9 - 1.1 mg/dL; Start 05/07/17 at 00:15 Methocarbamol (Robaxin) 500 mg QID PRN PO MUSCLE SPASM; Start 05/06/17 at 12:45 Miscellaneous Information 1 Q361D XX ; Start 05/06/17 at 10:15 Oxycodone HCl (Roxicodone) 5 mg Q4H PRN PO PAIN 1-10 Last administered on at 19:40; Start 05/06/17 at 12:45 Potassium Phosphate (K-Phos) 2,000 mg UNSCH PRN PO/TUBE SEE LABEL COMMENTS; Start 05/07/17 at 00:15 Potassium Phosphate 30 mmol/ Sodium Chloride 260 ml @ 42 mls/hr UNSCH PRN IV SEE LABEL COMMENTS; Start 05/07/17 at 00:15 Potassium Bicarb/ Potassium Chloride (K-Lyte Cl Eff) 50 meq UNSCH PRN PO For Potassium 3.3 - 3.5 mEq/L; Start 05/07/17 at 00:15 Potassium Chloride 100 ml @ 50 mls/hr Q2H PRN IV For Potassium 3.3 - 3.5 mEq/L ; Start 05/07/17 at 00:15 Propofol 100 ml @ 2.73 mls/hr TITRATE PRN IV SEDATION Last administered on 12/15at 05:50; Start 05/06/17 at 12:00; Stop 05/08/17 at 17:13; Status DC Propofol (Diprivan 500 Mg/ 50 ml Inj) 50 mg ONCE ONCE IV Last administered on 05/06/17at 11:33; Start 05/06/17 at 11:15; Stop 05/06/17 at 11:25; Status DC Racepinephrine (Racepinephrine 2.25% Neb) 0.5 ml STAT ONCE NEB Last administered on 05/06/17 11:15; Start 05/06/17 at 11:15; Stop 05/06/17 at 11:25; Status DC Senna/Docusate Sodium (Marge-Colace) 1 tab BID PEG Last administered on at 19:40; Start 05/06/17 at 21:00 Sodium Chloride 500 ml @ 500 mls/hr BOLUS ONCE IV Last administered on at 08:45; Start 05/08/17 at 08:45; Stop 05/08/17 at 09:44; Status DC Sodium Chloride (NS Flush) 2 ml BID IV FLUSH Last administered on 05/08/17at 19: 41; Start 05/06/17 at 11:00 Sodium Phosphate 30 mmol/Sodium Chloride 250 ml @ 42 mls/hr UNSCH PRN IV For Phosphorus < 2.5 mg/dL; Start 05/07/17 at 00:15 Trimethoprim/ Sulfamethoxazole (Bactrim 800-160 Mg/20 ml Liq) 20 ml Q12H PO Last administered on 05/09/17at 03:10; Start 05/06/17 at 15:00; Stop 05/10/17 at 12:00 Water (Free Water) 200 ml Q6HR G-TUBE Last administered on 05/09/17at 04:24; Start 05/08/17 at 08:45 A/P Assessment and Plan Unstable C6 fracture s/p fall 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 Continues to have stridor. Intubated and placed on mechanical ventilation and subsequently underwent percutaneous tracheostomy 05/06/17. ENT following and to decide further management of fluid collection at C3 level. Neurosurgical consult as well for evaluation of fluid collection at C3 level. Dr. Castro recommends continuing current antibiotic regimen and transfer to [facility] in [place] for further management by his surgeons who performed his cervical spine surgeries If deemed infectious fluid collection, will need with further debridement or instrumentation removal in case deeper infection Trach placed 05/07 for stable airway MSSA sepsis I&D cervical wound with cultures positive for MSSA. -ID following. Plan to continue IV Ancef for 6 weeks from date of surgery 04/29. -Per ID, plan to refer to Dr. Bena at time of discharge, questionable lifelong suppression due to hardware placement -Follow ESR/CRP Bilateral upper extremity edema -Doppler studies reveal nonocclusive thrombus in the right axillary and brachial veins. 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 Likely dysphonia multifactorial with poor respiratory effort, dry mucosa, decreased cord mobility and thick mucus. -suction prn -ENT consulted UTI -started on Bactrim. Atrial fibrillation Rate controlled -previously on Plavix per review of medical record -consider anticoagulation to be resumed when ok with neurosurgery. -continue to monitor HR Hypertension -Continue on Cardura 2 mg daily -To monitor BP and adjust treatment accordingly Anemia, suspect postoperative anemia of acute blood loss -Unknown baseline -Monitor for any active bleeding -Monitor CBC as indicated Incidental finding of [address] chest suggestive of spiculated mass -previously discussed finding with and patient on [facility] -Recommend PET scan as outpatient DVT prophylaxis -Bilateral SCD/SARIKA hose/ Lovenox starting 05/07 transfer to floor. d/w the RN and . Discharge Planning dc planning to [facility]. Cuca Saucedo MD May 09, 2017 08:56
[2017-05-09] MEDS: FAMOTIDINE 20 MG/2 ML VIAL IV PUSH SCH ×2 (09:00→20:51)
[2017-05-09] MEDS: SODIUM CHLORIDE 0.9% FLUSH 10 ML FLUSH IV FLUSH SCH ×2 (09:00→21:09)
[2017-05-09] MEDS: DOCUSATE SODIUM 50 MG/SENNA 8.6 MG TAB PEG SCH ×2 (09:59→20:54)
[2017-05-09] MEDS: DOXAZOSIN MESYLATE 2 MG TAB PO SCH (09:59)
[2017-05-09] MEDS: ENOXAPARIN SODIUM 30 MG/0.3 ML SYRINGE SQ SCH (10:00)
--- NOTE | 2017-05-09 11:00 | HHI.IDPN ---
Subjective Subjective Remarks Patient is an 87-year-old male, who was initially admitted April 10 in another facility after a fall. He was diagnosed to have traumatic C5 to C6 fracture. He underwent C6 partial corpectomy, cervical discectomy anterior approach, fusion C5-C6, posterior cervical fusion C4 to C7. This was complicated by hematoma with cord compression, and he underwent surgery again on April 12 and had evacuation of the hematoma. From there he was discharged to a rehabilitation facility. In the rehabilitation apparently he was having persistent drainage from the posterior cervical neck fusion. He was also having problem with dysphagia. He was admitted again on April 28 for PEG placement. In the rehabilitation facility he was having some fatigue and generalized malaise. He was also noted to have leukocytosis. Blood cultures done in the rehabilitation facility grew MSSA. On his admission April 28 at [facility] he was evaluated by multiple specialists including ENT , GI, and infectious disease. Infectious disease had the neurosurgical involved because of the persistent drainage from his neck fusion. Patient underwent surgery on April 29 and had reexploration of the posterior cervical wound with incision and sharp debridement. Wound culture from that surgery grew MSSA. The operative note was reviewed, and during surgery there was no hardware exposed. He had blood cultures done during that admission, and it came back negative. Patient was stable and transferred to [facility] inpatient rehabilitation on May 04. This morning patient apparently developed significant shortness of breath, and stridor. ENT was in the process of evaluating him but he was not completed. Patient was transferred to the intensive care unit for respiratory decompensation. He had undergone tracheostomy placement. He is afebrile. His WBC is normal. His chest x-ray yesterday is normal. Abdominal x-ray yesterday also showed that the PEG tube is in the stomach, and in good position. Infectious disease consultation has been requested to assist with antibiotic management in patient with MSSA bacteremia Notes reviewed D/W Dr Alejo Is cussed with RN Stable on T piece Had some low-grade temps overnight No pain Repeat ESR and CRP lower Procalcitonin 0.16 Wounds C/S negative UC low colony count Yesika CXR 05/06 negative At [facility]: ESR 48, CRP 7.9 Antibiotics Current Medications Ancef Bactrim Medications (Trade) Dose Ordered Sig/Vikas Route Start Time Stop Time Status Last Admin (NS Flush) 2 ml UNSCH PRN IV FLUSH 05/06/17 10:15 (NS Flush) 2 ml BID IV FLUSH 05/06/17 11:00 05/08/17 08:22 (Duoneb Neb) 1 ampule Q6HR NEB NEB 05/06/17 16:00 05/08/17 08:26 (Duoneb Neb) 1 ampule Q4HR NEB PRN INH 05/06/17 10:15 05/06/17 11:15 (Peridex 0.12% Liq) 15 ml BID@08,20 MT 05/06/17 20:00 05/08/17 08:00 (Pepcid Inj) 20 mg Q12HR IV PUSH 05/06/17 21:00 05/08/17 08:22 (Lovenox Inj) 30 mg Q24H SQ 05/07/17 11:00 05/08/17 11:39 Miscellaneous Information 1 Q361D XX 05/06/17 10:15 (Chlorhexidine 2% Cloth) 3 pack Taper DAILY@04 TOP 05/07/17 04:00 05/03/18 03:59 (Chlorhexidine 2% Cloth) 3 pack UNSCH PRN TOP 05/06/17 10:15 Propofol 100 ml @ 2.73 mls/hr TITRATE PRN IV 05/06/17 12:00 05/07/17 05:50 (Tylenol 650 Mg/ 20 ml Liq) 650 mg Q4H PRN PEG 05/06/17 12:45 05/07/17 20:14 (Ancef 2 Gm Premix) 2 gm Q8H IV 05/06/17 15:00 05/08/17 06:16 (Cardura) 2 mg DAILY PO 05/07/17 09:00 05/08/17 08:22 (Robaxin) 500 mg QID PRN PO 05/06/17 12:45 (Roxicodone) 5 mg Q4H PRN PO 05/06/17 12:45 05/07/17 20:15 (Marge-Colace) 1 tab BID PEG 05/06/17 21:00 05/08/17 08:22 (Bactrim 800-160 Mg/20 ml Liq) 20 ml Q12H PO 05/06/17 15:00 05/10/17 12:00 05/08/17 03:15 Potassium Chloride 100 ml @ 50 mls/hr Q2H PRN IV 05/07/17 00:15 Potassium Chloride 100 ml @ 50 mls/hr Q2H PRN IV 05/07/17 00:15 (K-Lyte Cl Eff) 50 meq UNSCH PRN PO 05/07/17 00:15 Potassium Chloride 100 ml @ 25 mls/hr UNSCH PRN IV 05/07/17 00:15 Potassium Chloride 100 ml @ 50 mls/hr Q2H PRN IV 05/07/17 00:15 Magnesium Sulfate 4 gm/Sodium Chloride 100 ml @ 50 mls/hr UNSCH PRN IV 05/07/17 00:15 (Mag-Ox) 800 mg UNSCH PRN PO 05/07/17 00:15 Magnesium Sulfate 2 gm/Sodium Chloride 100 ml @ 50 mls/hr UNSCH PRN IV 05/07/17 00:15 (K-Phos) 2,000 mg Q4H PRN PO 05/07/17 00:15 Sodium Phosphate 30 mmol/Sodium Chloride 250 ml @ 42 mls/hr UNSCH PRN IV 05/07/17 00:15 (K-Phos) 2,000 mg UNSCH PRN PO/TUBE 05/07/17 00:15 Potassium Phosphate 30 mmol/ Sodium Chloride 260 ml @ 42 mls/hr UNSCH PRN IV 05/07/17 00:15 (Free Water) 200 ml Q6HR G-TUBE 05/08/17 08:45 05/08/17 11:39 Sodium Chloride 1,000 ml @ 42 mls/hr [id number] IV 05/08/17 08:45 05/08/17 08:45 Past Medical History Atrial fibrillation Dysphagia Traumatic C5-C6 fracture from a fall Recent MSSA septicemia Kidney stones Past Surgical History Bilateral hip replacement PEG placement Cervical spine surgery March 2017 Allergies: Coded Allergies: aspirin (Unverified Allergy, Severe, RASH/SOB, 10/12/16) ibuprofen (Unverified Allergy, Severe, MOTRIN--RASH/SOB, 10/12/16) Objective . Vital Signs Date Time Temp Pulse Resp B/P (MAP) Pulse Ox O2 Delivery O2 Flow Rate FiO2 05/09/17 08:39 96 T-piece 5.00 28 05/09/17 08:00 98.0 83 20 133/75 (94) 95 05/09/17 08:00 T-Piece 6.00 28 05/09/17 08:00 74 05/09/17 06:00 72 05/09/17 04:00 76 13 110/64 (79) 100 05/09/17 04:00 76 05/09/17 02:00 86 05/09/17 00:00 99.9 86 19 126/59 (81) 99 05/09/17 00:00 86 05/08/17 22:31 99 T-piece 6.00 28 05/08/17 22:00 76 05/08/17 20:00 87 05/08/17 20:00 99.4 87 14 121/72 (88) 100 05/08/17 19:00 100 T-Piece 28 05/08/17 18:00 77 05/08/17 16:00 98.8 88 17 118/57 (77) 100 05/08/17 16:00 81 05/08/17 14:00 88 05/08/17 12:00 92 05/08/17 12:00 98.6 91 14 139/70 (93) 100 . Laboratory Tests Test 05/08/17 16:37 Erythrocyte Sedimentation Rate 36 mm/hr Laboratory Tests Test 05/08/17 10:55 05/08/17 16:37 Blood Urea Nitrogen 16 MG/DL Creatinine 0.71 MG/DL Random Glucose 98 MG/DL Total Protein 5.5 GM/DL Albumin 2.1 GM/DL Calcium Level 8.3 MG/DL Alkaline Phosphatase 83 U/L Aspartate Amino Transf (AST/SGOT) 20 U/L Alanine Aminotransferase (ALT/SGPT) 9 U/L Total Bilirubin 0.3 MG/DL Sodium Level 139 MEQ/L Potassium Level 4.3 MEQ/L Chloride Level 104 MEQ/L Carbon Dioxide Level 30.2 MEQ/L Anion Gap 5 MEQ/L Estimat Glomerular Filtration Rate 105 ML/MIN C-Reactive Protein 6.88 MG/DL Procalcitonin 0.16 ng/mL Imaging Last Impressions Chest X-Ray 05/06/17 0000 Signed Impressions: Service Date/Time: Saturday, May 06, 2017 12:42 - CONCLUSION: Tracheostomy in good position. Guerrero Henry MD FACR Physical Exam GENERAL: awake and alert, on T-piece, NAD SKIN: Cool and dry. No generalized rash, no ecchymoses and no evidence of embolic lesions. HEAD: Atraumatic. Normocephalic. No temporal wasting, or tenderness. EYES: Pale conjunctiva. No petechia or hemorrhage. Pupils equal, round and reactive to light. No scleral icterus. No injection or drainage. EARS, NOSE AND THROAT: Nose without bleeding or purulent nasal discharge. NECK: Trach site ok. He is wearing a cervical collar. Posterior neck incision is dry, no redness or drainage CARDIOVASCULAR: Regular rate and rhythm. No murmurs, rubs or gallops heard RESPIRATORY: Clear breath sounds anteriorly, no rhonchi or wheezing appreciated currently ABDOMEN: Soft, nondistended, no reaction to deep palpation.. Bowel sounds present and normoactive. No organomegaly. PEG site ok EXTREMITIES: No clubbing, cyanosis. Has edema both hands, mild pedal edema. NEUROLOGICAL: Awake and following PSYCHIATRIC: Cooperative LINE: No evidence of infection midline RUE Assessment & Plan Remarks IMPRESSION Stridor, etiology? ?poor handling of secretions - has had problem with dysphonia, dysphagia - previous eval showed vocal cord dysfunction MSSA sepsis, due to wound infection posterior neck fusion C4-C7 - S/P incision and sharp debridement April 29 - repeat CT with fluid collection close to hardware - wound C/S no growth Persistent neck wound drainage, C/S negative, ?seroma Traumatic C5-C6 fracture S/P surgery; reop for hematoma and cord compression Mar 2017 Prob with COPD, bronchitis Dysphagia, S/P PEG S/P tracheostomy RECOMMENDATION Continue IV ANcef - plan 6 weeks from date of surgery 04/29 - when he gets D/C will refer to Dr Bean, ?chronic suppression since he has hardware Also on Bactrim - to finish 05/10 Repeat chest x-ray Monitor progress Monitor pulmonary status D/W Dr Alejo Discussed with Jaquelin Coreas MD May 09, 2017 11:00
--- NOTE | 2017-05-09 12:33 | RADRPT ---
EXAM DATE/TIME: 05/09/2017 12:05 [facility] COMPARISON: CHEST SINGLE AP, May 06, 2017, 12:42. INDICATIONS : Short of breath, evaluate for pneumonia MEDICAL HISTORY : Cardiovascular disease. A-fib SURGICAL HISTORY : PEG tube, internal defibrilator ENCOUNTER: Subsequent ACUITY: 4 - 6 days PAIN SCORE: Non-responsive. LOCATION: Bilateral chest FINDINGS: There is consolidation and effusion at the left lung base concerning for pneumonia. The right lung is clear. There is a tracheostomy present. The heart is normal in size. The mediastinal contours are within normal limits. There has been previous fusion of the cervical spine. CONCLUSION: 1. Left lower lobe effusion and consolidation new when compared to previous. This is concerning for p christina. Michael Henry MD on May 09, 2017 at 12:30 Board Certified Radiologist. This report was verified electronically.
--- NOTE | 2017-05-09 13:22 | HHI.HCPN ---
Reason for visit a. To assist with evaluation and management of symptoms including: Shortness of breath, pain, debility b. To assist medical decision maker(s) with: better understanding of current medical conditions; weighing benefits/burdens of medical treatment options; making medical treatment decisions. Subjective/Interval History Patient seen today to follow-up on comfort, goals. No new labs. CXR from today= Left lower lobe effusion and consolidation new when compared to previous. This is concerning for pneumonia. Critical care has signed off, patient has transfer orders out of ICU. Stable, tolerating T piece 28% FiO2. Case management assisting with Discharge planning for discharge to rehabilitation, possible select. Patient seen in room air is present. He is alert, appears to be mostly oriented. He indicates his will be returning later. Briefly review with him hospital course, tracheostomy, ENT recommendations, neurosurgery recommendations, discharge planning for rehabilitation. He nods in agreement appears to understand he indicates he does not have additional questions offered to assist him to use paper and clipboard at bedside as it appears he has previously been writing. He is able to mouth some words he indicates he does not have further questions. He denies pain or shortness of breath. Advised I could call to provide an update he is amenable to this. . Family/friend interactions Call to patient , voicemail left with my contact information. . Advance Directives Living Will: Never completed Health Care Surrogate: Never completed Durable Power of Criminal Court Judge: Never completed Advance Directive Specifics Health Care Surrogate(s): Healthcare proxy -spouse -Amelia Mcfarland- [phone] (to bring in copies of living will and healthcare surrogate) . Objective Vital Signs Date Time Temp Pulse Resp B/P (MAP) Pulse Ox O2 Delivery O2 Flow Rate FiO2 05/09/17 10:00 74 05/09/17 08:39 96 T-piece 5.00 28 05/09/17 08:00 98.0 83 20 133/75 (94) 95 05/09/17 08:00 T-Piece 6.00 28 05/09/17 08:00 74 05/09/17 06:00 72 05/09/17 04:00 76 13 110/64 (79) 100 05/09/17 04:00 76 05/09/17 02:00 86 05/09/17 00:00 99.9 86 19 126/59 (81) 99 05/09/17 00:00 86 05/08/17 22:31 99 T-piece 6.00 28 05/08/17 22:00 76 05/08/17 20:00 87 05/08/17 20:00 99.4 87 14 121/72 (88) 100 05/08/17 19:00 100 T-Piece 28 05/08/17 18:00 77 05/08/17 16:00 98.8 88 17 118/57 (77) 100 05/08/17 16:00 81 05/08/17 14:00 88 Intake & Output 05/09/17 05/09/17 07:00 19:00 Intake Total 1700 ml Output Total 550 ml Balance 1150 ml Intake IV Total 1340 ml Tube Feeding 360 ml Output Urine Total 550 ml Bladder Scan Volume Amount 14 ml Physical Exam CONSTITUTIONAL/GENERAL: This is an adequately nourished patient, in no apparent distress, alert, tracheostomy tube tepees TUBES/LINES/DRAINS: PIV right upper extremity, tracheostomy, condom catheter, SCDs, PEG tube NECK: Tracheostomy midline. Supple, nontender. CARDIOVASCULAR: Irregular rate and rhythm without murmur. Peripheral pulses symmetric. 2+ edema bilateral lower arms, hands. RESPIRATORY/CHEST: Symmetric, unlabored respirations on 28% FiO2 T piece. Clear to auscultation. Breath sounds equal bilaterally, clear, few scattered rhonchi. GASTROINTESTINAL: Abdomen soft, non-tender, nondistended. No guarding. Intermittent bowel sounds. PEG tube clamped. GENITOURINARY: Without palpable bladder distension. Condom catheter MUSCULOSKELETAL: Extremities without clubbing, cyanosis. + Edema upper extremities. No joint tenderness or effusion noted. NEUROLOGICAL: Alert, mouthing words. Smiles, Appears mostly oriented nods to questions. Follows commands. Has been writing some to communicate though did not wish to during my visit. PSYCHIATRIC no evident anxiety or depression Diagnostic Tests Laboratory Laboratory Tests Test 05/07/17 00:47 05/07/17 04:14 05/07/17 08:08 05/08/17 10:55 White Blood Count 4.8 TH/MM3 (4.0-11.0) 6.9 TH/MM3 (4.0-11.0) Red Blood Count 2.91 MIL/MM3 (4.50-5.90) 2.96 MIL/MM3 (4.50-5.90) Hemoglobin 9.1 GM/DL (13.0-17.0) 9.0 GM/DL (13.0-17.0) Hematocrit 26.8 % (39.0-51.0) 27.0 % (39.0-51.0) Mean Corpuscular Volume 92.0 FL (80.0-100.0) 91.2 FL (80.0-100.0) Mean Corpuscular Hemoglobin 31.3 PG (27.0-34.0) 30.3 PG (27.0-34.0) Mean Corpuscular Hemoglobin Concent 34.0 % (32.0-36.0) 33.2 % (32.0-36.0) Red Cell Distribution Width 15.5 % (11.6-17.2) 15.6 % (11.6-17.2) Platelet Count 206 TH/MM3 (150-450) 200 TH/MM3 (150-450) Mean Platelet Volume 7.2 FL (7.0-11.0) 7.8 FL (7.0-11.0) Blood Urea Nitrogen 11 MG/DL (7-18) 13 MG/DL (7-18) 16 MG/DL (7-18) Creatinine 0.72 MG/DL (0.60-1.30) 0.82 MG/DL (0.60-1.30) 0.71 MG/DL (0.60-1.30) Random Glucose 167 MG/DL (74-106) 124 MG/DL (74-106) 98 MG/DL (74-106) Total Protein 5.5 GM/DL (6.4-8.2) 5.7 GM/DL (6.4-8.2) 5.5 GM/DL (6.4-8.2) Albumin 2.1 GM/DL (3.4-5.0) 2.1 GM/DL (3.4-5.0) 2.1 GM/DL (3.4-5.0) Calcium Level 7.9 MG/DL (8.5-10.1) 7.9 MG/DL (8.5-10.1) 8.3 MG/DL (8.5-10.1) Phosphorus Level 2.9 MG/DL (2.5-4.9) Magnesium Level 2.0 MG/DL (1.5-2.5) Alkaline Phosphatase 60 U/L (45-117) 60 U/L (45-117) 83 U/L (45-117) Aspartate Amino Transf (AST/SGOT) 13 U/L (15-37) 23 U/L (15-37) 20 U/L (15-37) Alanine Aminotransferase (ALT/SGPT) 9 U/L (12-78) 6 U/L (12-78) 9 U/L (12-78) Total Bilirubin 0.4 MG/DL (0.2-1.0) 0.4 MG/DL (0.2-1.0) 0.3 MG/DL (0.2-1.0) Sodium Level 140 MEQ/L (136-145) 140 MEQ/L (136-145) 139 MEQ/L (136-145) Potassium Level 3.6 MEQ/L (3.5-5.1) 4.0 MEQ/L (3.5-5.1) 4.3 MEQ/L (3.5-5.1) Chloride Level 104 MEQ/L (98-107) 103 MEQ/L (98-107) 104 MEQ/L (98-107) Carbon Dioxide Level 28.3 MEQ/L (21.0-32.0) 30.3 MEQ/L (21.0-32.0) 30.2 MEQ/L (21.0-32.0) Anion Gap 8 MEQ/L (5-15) 7 MEQ/L (5-15) 5 MEQ/L (5-15) Estimat Glomerular Filtration Rate 104 ML/MIN (>89) 89 ML/MIN (>89) 105 ML/MIN (>89) Neutrophils (%) (Auto) 83.6 % (16.0-70.0) Lymphocytes (%) (Auto) 10.0 % (9.0-44.0) Monocytes (%) (Auto) 6.0 % (0.0-8.0) Eosinophils (%) (Auto) 0.0 % (0.0-4.0) Basophils (%) (Auto) 0.4 % (0.0-2.0) Neutrophils # (Auto) 5.8 TH/MM3 (1.8-7.7) Lymphocytes # (Auto) 0.7 TH/MM3 (1.0-4.8) Monocytes # (Auto) 0.4 TH/MM3 (0-0.9) Eosinophils # (Auto) 0.0 TH/MM3 (0-0.4) Basophils # (Auto) 0.0 TH/MM3 (0-0.2) CBC Comment AUTO DIFF Differential Comment AUTO DIFF CONFIRMED Hematology Comments Test 05/08/17 12:30 05/08/17 16:37 Nasal Screen MRSA (PCR) MRSA NOT DETECTED (NOT Erythrocyte Sedimentation Rate 36 mm/hr (0-20) C-Reactive Protein 6.88 MG/DL (0.00-0.30) Procalcitonin 0.16 ng/mL (0.00-0.08) Result Diagram: 05/07/17 0414 05/08/17 1055 Imaging Last Impressions Chest X-Ray 05/09/17 0000 Signed Impressions: Service Date/Time: Tuesday, May 09, 2017 12:05 - CONCLUSION: 1. Left lower lobe effusion and consolidation new when compared to previous. This is concerning for pneumonia. Michael Henry MD Procedures 05/06/2017-endotracheal intubation and bronchoscopy 05/06/2017-percutaneous tracheostomy placement . Assessment and Plan Disease Oriented Problem List: (1) Acute respiratory failure (2) Dysphagia (3) Cervical spinal cord injury (4) MSSA (methicillin susceptible Staphylococcus aureus) septicemia (5) Anemia (6) A-fib (7) Hypertension Symptom Scale: (1) Shortness of breath 0-10 Scale: Unable to quantify Comment: History of C5-C6 fracture status post surgery, dysphagia. . (2) Pain 0-10 Scale: Unable to quantify Comment: Multifactorial. History of C5-C6 fracture status post surgery. Patient required tracheostomy placement 05/06/17. Currently bedbound. . (3) Debility 0-10 Scale: Unable to quantify Comment: Progressive . Pertinent Non-Medical Issues Psychosocial:Patient was born in [place]. 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 Patient has been 3 times and twice. Patient has been to his current Amelia for 34 years. Patient had 3 children, one , one adult daughter and one adult son. Spiritual: No [employer] affiliation. Legal:. Patient spells he has advanced directives and she will bring in copies Ethical issues impacting care: None identified at this time . Important Contacts Spouse -Amelia Mcfarland- [phone] . Prognosis Mr. Mcfarland is a 87 years old male with a past medical history of atrial fibrillation, dysphagia, traumatic C5-C6 fracture from a fall, recent MSSA septicemia and kidney stones. Patient was transferred from [facility] today to ICU after rapid response was called due to worsening audible stridor. Patient is status post C6 partial corpectomy, cervical discectomy anterior approach, fusion C5-C6 posterior, cervical fusion C4-C7. Patient has had complications with hematoma with cord compression requiring with repeat surgery to evacuate hematoma, persistent drainage from posterior cervical neck fusion site, dysphagia and acute respiratory failure requiring tracheostomy. Given ongoing comorbidities and prolonged hospitalization, patient remains at high risk for further complications, deterioration and decline. . Code Status: Full Code Plan PLAN: Legal decision maker: Patient now more alert, able to communicate some. AB able to participate more in decision-making in the coming days. According to [place] statute his Amelia Mcfarland would be his his healthcare proxy. Goals: Per prior palliative care interaction with patient goals have been expressed as aggressive. CODE STATUS: Full code SYMPTOMS: * Shortness of breath: Patient is he has a history of C5-C6 fracture status post partial corpectomy, discectomy and fusion. Patient also is history of dysphagia. Admitted for acute respiratory failure. Required Tracheostomy placement on 05/06/17 and mechanical ventilation. Patient tolerated CPAP trials now tolerating T piece to trach. Discharge planning for rehabilitation. Repeat CXR today Left lower lobe effusion and consolidation new when compared to previous. This is concerning for pneumonia * Pain: Multifactorial. History of C5-C6 fracture status post surgery. Patient underwent tracheostomy placement 05/06/17. Currently bedbound. Patient has been on oxycodone 5 mg q 4 hrs prn, methocarbamol 500mg QID. Last dose oxycodone 05/08, sparing requirement --no more than once a day. Patient denies pain at time of my exam today. No recommendations, continue to evaluate patient medication requirements/effectiveness * Debility: Progressive. Patient is he had prolonged hospitalizations and was currently in [facility]. Patient will benefit from physical, and speech therapy. Case management assisting with discharge planning possibly select Palliative care will continue to follow the patient during hospital course as condition evolves, to assist patient/decision-maker with understanding of their medical conditions, weighing benefits/burdens of treatment options, for clarification of goals of treatment. Additionally will assist with any symptoms of palliative concern Attestation To help prompt me to consider important information that might be impacting today's encounter and assessment, information from prior notes written by myself or my colleagues may have been "brought forward" into today's note. My signature on this note, however, is an attestation that I personally performed the exam, history, and/or decision-making noted today, and, unless otherwise indicated, the interactions with patient, family, and staff as well as the review of records all occurred today. I also attest that the listed assessment and stated plan reflect my best clinical judgment today based on the combination of historical information, prior notes, and today's exam/ interactions. When time spent is documented, it refers only to time spent today by the signer, or if indicated, combined time spent today by collaborating physician/nurse practitioner. Kaleigh Daugherty May 09, 2017 13:22
--- NOTE | 2017-05-09 15:34 | PD.WCN.NOT ---
Wound Consult Description: Received consult from Doctor Alonso for pressure ulcer of sacral area. Communicated with: SUMMER Kelly [facility] Recommendation: Please cleanse buttock and gluteal cleft with Remedy incontinence wipes and apply Calazime barrier cream BID and PRN Additional Information: Patient seen on [address] [place] [address] for evaluation of pressure ulcer to sacral area. Patient seen with Frieda TREJO and radio script writer. Patient turned to R side with the assistance of radio script writer, bed, patient and Frieda TREJO. Buttock area presents with denuded peeling skin with partial thickness wound to R buttock. Calazime cream is being applied. Left wound and buttock area open to air. Wound to R buttock does not present pressure related, appears to be with result of moisture and friction.Patient is being positioned off bottom for offloading of pressure with pillow for support. Patient is noted with edema to bilateral upper extremities that is pitting and weeping. Applied ultra sorb pads under arms and left weeping areas open to air. Alia Robert [facility] May 09, 2017 15:34
--- NOTE | 2017-05-09 17:16 | MB ---
cc: Sourav Benjamin MD DATE OF CONSULT: REASON FOR CONSULTATION: Status post tracheostomy. HISTORY OF PRESENT ILLNESS: Mr. Mcfarland is an 87-year-old male who had suffered a spinal cord injury, hospitalized in [place] and had surgery with subsequent infection at surgical incision site. The patient was debrided and is on antibiotic therapy. Apparently has vocal cord paralysis or dysfunction, as well as dysphagia. Tracheostomy was performed, which is in place for about 4 days now. The patient is on oxygen therapy via his tracheostomy stoma. He is in no respiratory distress. No fever, no chills at present. PAST MEDICAL HISTORY: That of atrial fibrillation, cervical spine injury as above, dysphagia, question vocal cord paralysis, renal calculi, bilateral hip replacements. ALLERGIES: ASPIRIN, IBUPROFEN. CURRENT MEDICATIONS: Ancef, Cardura, Pepcid, PeriColace, lactulose, Roxicodone, DuoNeb nebulization, Bactrim. FAMILY HISTORY: Noncontributory. SOCIAL HISTORY: Used to smoke a pack a day, however, has not smoked since the 70s. Drinks alcohol socially. Does not use drugs. SYSTEMS REVIEW: A 12-point review of systems as per HPI and past history, otherwise negative. On exam, patient is alert, appears in no acute distress. Temperature 98, pulse 70, respiration 20, blood pressure 130/70, oxygen saturation 96% at 28%. HEENT: Unremarkable. Cervical collar in place. Tracheostomy in place. CHEST: No dullness to percussion. Clear to auscultation. Decreased breath sound left lung base. CARDIAC: PMI distant. S1, S2 audible. No murmur, no rub. ABDOMEN: Lax, bowel sounds audible. EXTREMITIES: No clubbing, cyanosis, or edema. LABORATORIES: White count 6.9, hemoglobin 9, hematocrit 27, platelets 200,000. Sodium 139, potassium 4.3, BUN 16, creatinine 0.7. Chest x-ray: Atelectasis, effusion, coarse infiltrate right base. IMPRESSION: 1. Status post tracheostomy. 2. Cervical spine injury post-surgical correction. 3. Atrial fibrillation. 4. Question vocal cord paralysis. PLAN: Patient seems stable at present without respiratory distress, requiring oxygen at 28%. Pulmonary toilet will be continued, as well as bronchodilator therapy. Once stable and is felt able, will attempt to remove tracheostomy tube should that be possible. Will follow his course along with you and depending on progress, proceed further. I do thank you for asking me to partake in Mr. Mcfarland's care. MD SONDRA Fortune/LORI , 04:27 PM , 05:14 PM
[2017-05-10] VITALS (8 sets, daily range): BP systolic 97–122; BP diastolic 50–65; PULSE 72–94; RESP 18–20; TEMP 98.1–100.1; O2SAT 95–99
[2017-05-10] MEDS: SODIUM CHLOR 0.9% 1000 ML INJ 1,000 ML IV SCH ×2 (00:20→08:23)
[2017-05-10] MEDS: RESP: ALBUTEROL 2.5 MG/IPRATROPIUM 0.5 MG NEB (SCH) NEB ×2 (03:10→07:42)
[2017-05-10] MEDS: SULFAMETHOXAZOLE-TRIMETHOPRIM 800-160 MG/20 ML UDC PO SCH (03:41)
[2017-05-10] MEDS: CHLORHEXIDINE GLUCONATE 2 % 1 PACK (2 CLOTHS) TOP SCH (03:41)
[2017-05-10] MEDS: FREE WATER G-TUBE SCH ×4 (06:00→17:06)
[2017-05-10] MEDS: ceFAZolin 2 GM/50 ML BAG IV SCH ×3 (06:47→23:00)
[2017-05-10] MEDS: CHLORHEXIDINE 0.12% (ORAL KIT) 15 ML CUP MT SCH ×2 (08:00→20:13)
[2017-05-10] MEDS: FAMOTIDINE 20 MG/2 ML VIAL IV PUSH SCH ×2 (08:45→20:13)
[2017-05-10] MEDS: SODIUM CHLORIDE 0.9% FLUSH 10 ML FLUSH IV FLUSH SCH ×2 (08:45→20:13)
[2017-05-10] MEDS: DOCUSATE SODIUM 50 MG/SENNA 8.6 MG TAB PEG SCH ×2 (08:45→20:10)
[2017-05-10] MEDS: DOXAZOSIN MESYLATE 2 MG TAB PO SCH (08:45)
--- NOTE | 2017-05-10 10:53 | HHI.PR ---
Subjective Remarks in no acute distress. denies pain. no fever. no new complaints. Objective Vitals Vital Signs Date Time Temp Pulse Resp B/P (MAP) Pulse Ox O2 Delivery O2 Flow Rate FiO2 05/10/17 09:01 98 T-Piece 5.00 28 05/10/17 08:00 98.9 81 20 116/58 (77) 96 05/10/17 07:44 98 T-piece 5.00 28 05/10/17 03:10 98 T-piece 28 05/10/17 01:08 98.8 72 18 97/52 (67) 97 05/09/17 22:08 T-Piece 6.00 28 05/09/17 21:22 98 T-piece 6.00 28 05/09/17 20:47 98.4 92 18 123/51 (75) 100 05/09/17 16:00 98.5 78 18 115/57 (76) 95 05/09/17 12:00 98.4 85 18 136/75 (95) 98 I/O 05/09/17 05/09/17 05/09/17 05/10/17 05/10/17 05/10/17 07:00 15:00 23:00 07:00 15:00 23:00 Intake Total 1700 ml 700 ml 831 ml Output Total 550 ml 850 ml Balance 1150 ml -150 ml 831 ml Intake IV Total 1340 ml Tube Feeding 360 ml 700 ml 831 ml Output Urine Total 550 ml 850 ml Bladder Scan Volume Amount 14 ml 14 ml Result Diagram: 05/07/17 0414 05/08/17 1055 Imaging Last Impressions Chest X-Ray 05/09/17 0000 Signed Impressions: Service Date/Time: Tuesday, May 09, 2017 12:05 - CONCLUSION: 1. Left lower lobe effusion and consolidation new when compared to previous. This is concerning for pneumonia. Michael Henry MD Objective Remarks GENERAL: This is a well-nourished, well-developed patient, in no apparent distress. Neck; trach in place CARDIOVASCULAR: Regular rate and regular rhythm without murmurs, gallops, or rubs. RESPIRATORY: Clear to auscultation. Breath sounds equal bilaterally. No wheezes , rales, or rhonchi. GASTROINTESTINAL: Abdomen soft, non-tender, nondistended. Normal, active bowel sounds- PEG in place MUSCULOSKELETAL: Extremities without clubbing, cyanosis, or edema. NEURO: Alert & Oriented x4 to person, place, time, situation. Moves all ext x4 Procedures tracheostomy Medications and IVs Inpatient Medications Acetaminophen (Tylenol 650 Mg/ 20 ml Liq) 650 mg Q4H PRN PEG PAIN SCALE 1 TO 3 Last administered on 05/07/17 20:14; Start 05/06/17 at 12:45 Albuterol/ Ipratropium (Duoneb Neb) 1 ampule Q4HR NEB PRN INH SHORTNESS OF BREATH Last administered on 05/06/17 11:15; Start 05/06/17 at 10:15 Atropine Sulfate (Atropine Inj) 0.5 mg ONCE ONCE IV PUSH Last administered on 05/06/17 11:15; Start 05/06/17 at 11:15; Stop 05/06/17 at 11:26; Status DC Cefazolin Sodium/ Dextrose (Ancef 2 Gm Premix) 2 gm Q8H IV Last administered on 05/10/17 06:47; Start 05/06/17 at 15:00 Chlorhexidine Gluconate (Chlorhexidine 2% Cloth) 3 pack UNSCH PRN TOP HYGIENIC CARE; Start 05/06/17 at 10:15 Chlorhexidine Gluconate (Peridex 0.12% Liq) 15 ml BID@08,20 MT Last administered on 05/10/17 08:00; Start 05/06/17 at 20:00 Doxazosin Mesylate (Cardura) 2 mg DAILY PO Last administered on 05/10/17 08:45 ; Start 05/07/17 at 09:00 Enoxaparin Sodium (Lovenox Inj) 30 mg Q24H SQ Last administered on 05/09/17 10 :00; Start 05/07/17 at 11:00 Famotidine (Pepcid Inj) 20 mg Q12HR IV PUSH Last administered on 05/10/17 08: 45; Start 05/06/17 at 21:00 Fentanyl Citrate 250 ml @ 5 mls/hr TITRATE PRN IV SEDATION Last administered on 05/06/17 11:34; Start 05/06/17 at 12:00; Stop 05/06/17 at 23:00; Status DC Fentanyl Citrate (fentaNYL INJ) 100 mcg ONCE ONCE IV PUSH Last administered on 3/9/18at 12:14; Start 05/06/17 at 12:00; Stop 05/06/17 at 17:09; Status DC Magnesium Oxide (Mag-Ox) 800 mg UNSCH PRN PO For Magnesium 1.2 - 1.6 mg/dL; Start 05/07/17 at 00:15 Magnesium Sulfate 2 gm/Sodium Chloride 100 ml @ 50 mls/hr UNSCH PRN IV For Magnesium 1.2 - 1.6 mg/dL; Start 05/07/17 at 00:15 Magnesium Sulfate 4 gm/Sodium Chloride 100 ml @ 50 mls/hr UNSCH PRN IV For Magnesium 0.9 - 1.1 mg/dL; Start 05/07/17 at 00:15 Methocarbamol (Robaxin) 500 mg QID PRN PO MUSCLE SPASM; Start 05/06/17 at 12:45 Miscellaneous Information 1 [id number] XX ; Start 05/06/17 at 10:15 Oxycodone HCl (Roxicodone) 5 mg Q4H PRN PO PAIN 1-10 Last administered on at 03:41; Start 05/06/17 at 12:45 Potassium Phosphate (K-Phos) 2,000 mg UNSCH PRN PO/TUBE SEE LABEL COMMENTS; Start 05/07/17 at 00:15 Potassium Phosphate 30 mmol/ Sodium Chloride 260 ml @ 42 mls/hr UNSCH PRN IV SEE LABEL COMMENTS; Start 05/07/17 at 00:15 Potassium Bicarb/ Potassium Chloride (K-Lyte Cl Eff) 50 meq UNSCH PRN PO For Potassium 3.3 - 3.5 mEq/L; Start 05/07/17 at 00:15 Potassium Chloride 100 ml @ 50 mls/hr Q2H PRN IV For Potassium 3.3 - 3.5 mEq/L ; Start 05/07/17 at 00:15 Propofol 100 ml @ 2.73 mls/hr TITRATE PRN IV SEDATION Last administered on 12/15at 05:50; Start 05/06/17 at 12:00; Stop 05/08/17 at 17:13; Status DC Propofol (Diprivan 500 Mg/ 50 ml Inj) 50 mg ONCE ONCE IV Last administered on 05/06/17at 11:33; Start 05/06/17 at 11:15; Stop 05/06/17 at 11:25; Status DC Racepinephrine (Racepinephrine 2.25% Neb) 0.5 ml STAT ONCE NEB Last administered on 05/06/17at 11:15; Start 05/06/17 at 11:15; Stop 05/06/17 at 11:25; Status DC Senna/Docusate Sodium (Marge-Colace) 1 tab BID PEG Last administered on at 08:45; Start 05/06/17 at 21:00 Sodium Chloride 500 ml @ 500 mls/hr BOLUS ONCE IV Last administered on at 08:45; Start 05/08/17 at 08:45; Stop 05/08/17 at 09:44; Status DC Sodium Chloride (NS Flush) 2 ml BID IV FLUSH Last administered on 05/10/17at 08: 45; Start 05/06/17 at 11:00 Sodium Phosphate 30 mmol/Sodium Chloride 250 ml @ 42 mls/hr UNSCH PRN IV For Phosphorus < 2.5 mg/dL; Start 05/07/17 at 00:15 Trimethoprim/ Sulfamethoxazole (Bactrim 800-160 Mg/20 ml Liq) 20 ml Q12H PO Last administered on 05/10/17at 03:41; Start 05/06/17 at 15:00; Stop 05/10/17 at 12:00 Water (Free Water) 200 ml Q6HR G-TUBE Last administered on 05/10/17at 06:00; Start 05/08/17 at 08:45 A/P Assessment and Plan Unstable C6 fracture s/p fall Traumatic cervical cord injury Central cord syndrome s/p ACDF C5-C6, partial corpectomy C6 and staged posterior cervical decompression and fusion C4 to C7 complicated by hematoma with cord compression s/p evacuation -Comprehensive rehabilitation per primary team -Fall precautions -Pain management with bowel regimen -monitor wound healing -PT, OOB when cleared by neurosurgery Stridor Acute respiratory failure Vocal cord dysfunction Fluid collection at C3 level Patient received racemic epinephrine nebulizer treatment 2 as well as Solu- Medrol 125 mg [facility]. Continues to have stridor. Intubated and placed on mechanical ventilation and subsequently underwent percutaneous tracheostomy 05/06/17. evaluated by ENT. Neurosurgical consult as well for evaluation of fluid collection at C3 level. Dr. Castro recommends continuing current antibiotic regimen and further management by his surgeons who performed his cervical spine surgeries If deemed infectious fluid collection, will need with further debridement or instrumentation removal in case deeper infection Trach placed 05/07 for stable airway pulmonary following. MSSA sepsis I&D cervical wound with cultures positive for MSSA. -ID following. Plan to continue IV Ancef for 6 weeks from date of surgery 04/29. -Per ID, plan to refer to Dr. Bean at time of discharge, questionable lifelong suppression due to hardware placement -Follow ESR/CRP Bilateral upper extremity edema -Doppler studies reveal nonocclusive thrombus in the right axillary and brachial veins. 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 Likely dysphonia multifactorial with poor respiratory effort, dry mucosa, decreased cord mobility and thick mucus. -suction prn -ENT consulted UTI -started on Bactrim. Atrial fibrillation Rate controlled -previously on Plavix per review of medical record -consider anticoagulation to be resumed when ok with neurosurgery. -continue to monitor HR Hypertension -Continue on Cardura 2 mg daily -To monitor BP and adjust treatment accordingly Anemia, suspect postoperative anemia of acute blood loss -Unknown baseline -Monitor for any active bleeding -Monitor CBC as indicated Incidental finding of [address] chest suggestive of spiculated mass -previously discussed finding with and patient on [facility] -Recommend PET scan as outpatient DVT prophylaxis -Bilateral SCD/SARIKA hose/ Lovenox starting 05/07 Discharge Planning dc planning to [facility]. Cuca Saucedo MD May 10, 2017 10:53
[2017-05-10] MEDS: ENOXAPARIN SODIUM 30 MG/0.3 ML SYRINGE SQ SCH (11:32)
--- NOTE | 2017-05-10 12:40 | HHI.IDPN ---
Subjective Subjective Remarks Patient is an 87-year-old male, who was initially admitted April 10 in another facility after a fall. He was diagnosed to have traumatic C5 to C6 fracture. He underwent C6 partial corpectomy, cervical discectomy anterior approach, fusion C5-C6, posterior cervical fusion C4 to C7. This was complicated by hematoma with cord compression, and he underwent surgery again on April 12 and had evacuation of the hematoma. From there he was discharged to a rehabilitation facility. In the rehabilitation apparently he was having persistent drainage from the posterior cervical neck fusion. He was also having problem with dysphagia. He was admitted again on April 28 for PEG placement. In the rehabilitation facility he was having some fatigue and generalized malaise. He was also noted to have leukocytosis. Blood cultures done in the rehabilitation facility grew MSSA. On his admission April 28 at [facility] he was evaluated by multiple specialists including ENT , GI, and infectious disease. Infectious disease had the neurosurgical involved because of the persistent drainage from his neck fusion. Patient underwent surgery on April 29 and had reexploration of the posterior cervical wound with incision and sharp debridement. Wound culture from that surgery grew MSSA. The operative note was reviewed, and during surgery there was no hardware exposed. He had blood cultures done during that admission, and it came back negative. Patient was stable and transferred to [facility] inpatient rehabilitation on May 04. This morning patient apparently developed significant shortness of breath, and stridor. ENT was in the process of evaluating him but he was not completed. Patient was transferred to the intensive care unit for respiratory decompensation. He had undergone tracheostomy placement. He is afebrile. His WBC is normal. His chest x-ray yesterday is normal. Abdominal x-ray yesterday also showed that the PEG tube is in the stomach, and in good position. Infectious disease consultation has been requested to assist with antibiotic management in patient with MSSA bacteremia Notes reviewed Temps low grade Stable on T piece CXR 05/09 with new L infiltrate Repeat ESR and CRP lower Procalcitonin 0.16 Wounds C/S negative UC low colony count Yesika CXR 05/06 negative At [facility]: ESR 48, CRP 7.9 Antibiotics Ancef Current Medications Medications (Trade) Dose Ordered Sig/Vikas Route Start Time Stop Time Status Last Admin (NS Flush) 2 ml UNSCH PRN IV FLUSH 05/06/17 10:15 (NS Flush) 2 ml BID IV FLUSH 05/06/17 11:00 05/10/17 08:45 (Duoneb Neb) 1 ampule Q6HR NEB NEB 05/06/17 16:00 05/10/17 07:42 (Duoneb Neb) 1 ampule Q4HR NEB PRN INH 05/06/17 10:15 05/06/17 11:15 (Peridex 0.12% Liq) 15 ml BID@08,20 MT 05/06/17 20:00 05/10/17 08:00 (Pepcid Inj) 20 mg Q12HR IV PUSH 05/06/17 21:00 05/10/17 08:45 (Lovenox Inj) 30 mg Q24H SQ 05/07/17 11:00 05/10/17 11:32 Miscellaneous Information 1 Q361D XX 05/06/17 10:15 (Chlorhexidine 2% Cloth) 3 pack Taper DAILY@04 TOP 05/07/17 04:00 05/03/18 03:59 (Chlorhexidine 2% Cloth) 3 pack UNSCH PRN TOP 05/06/17 10:15 (Tylenol 650 Mg/ 20 ml Liq) 650 mg Q4H PRN PEG 05/06/17 12:45 05/07/17 20:14 (Ancef 2 Gm Premix) 2 gm Q8H IV 05/06/17 15:00 05/10/17 06:47 (Cardura) 2 mg DAILY PO 05/07/17 09:00 05/10/17 08:45 (Robaxin) 500 mg QID PRN PO 05/06/17 12:45 (Roxicodone) 5 mg Q4H PRN PO 05/06/17 12:45 05/10/17 11:42 (Marge-Colace) 1 tab BID PEG 05/06/17 21:00 05/10/17 08:45 (Free Water) 200 ml Q6HR G-TUBE 05/08/17 08:45 05/10/17 11:32 Sodium Chloride 1,000 ml @ 42 mls/hr [id number] IV 05/08/17 08:45 05/10/17 00:20 (Benadryl Inj) 25 mg Q6H PRN IV PUSH 05/10/17 11:45 UNV Lines Midline Past Medical History Atrial fibrillation Dysphagia Traumatic C5-C6 fracture from a fall Recent MSSA septicemia Kidney stones Past Surgical History Bilateral hip replacement PEG placement Cervical spine surgery March 2017 Allergies: Coded Allergies: aspirin (Unverified Allergy, Severe, RASH/SOB, 10/12/16) ibuprofen (Unverified Allergy, Severe, MOTRIN--RASH/SOB, 10/12/16) Objective . Vital Signs Date Time Temp Pulse Resp B/P (MAP) Pulse Ox O2 Delivery O2 Flow Rate FiO2 05/10/17 12:17 98.5 94 20 105/65 (78) 99 05/10/17 09:01 98 T-Piece 5.00 28 05/10/17 08:00 98.9 81 20 116/58 (77) 96 05/10/17 07:44 98 T-piece 5.00 28 05/10/17 03:10 98 T-piece 28 05/10/17 01:08 98.8 72 18 97/52 (67) 97 05/09/17 22:08 T-Piece 6.00 28 05/09/17 21:22 98 T-piece 6.00 28 05/09/17 20:47 98.4 92 18 123/51 (75) 100 05/09/17 16:00 98.5 78 18 115/57 (76) 95 05/10/17 05/10/17 05/11/17 15:00 23:00 07:00 Intake Total 1031 ml Balance 1031 ml Tube Feeding 831 ml Other 200 ml . Laboratory Tests Test 05/08/17 16:37 Erythrocyte Sedimentation Rate 36 mm/hr Laboratory Tests Test 05/08/17 16:37 C-Reactive Protein 6.88 MG/DL Procalcitonin 0.16 ng/mL Imaging Chest X-Ray 05/09/17 0000 Signed Impressions: Service Date/Time: Tuesday, May 09, 2017 12:05 - CONCLUSION: 1. Left lower lobe effusion and consolidation new when compared to previous. This is concerning for pneumonia. Michael Henry MD Chest X-Ray 05/06/17 0000 Signed Impressions: Service Date/Time: Saturday, May 06, 2017 12:42 - CONCLUSION: Tracheostomy in good position. Guerrero Henry MD FACR Physical Exam GENERAL: awake and alert, on T-piece, NAD SKIN: Cool and dry. No generalized rash, no ecchymoses and no evidence of embolic lesions. HEAD: Atraumatic. Normocephalic. No temporal wasting, or tenderness. EYES: Pale conjunctiva. No petechia or hemorrhage. Pupils equal, round and reactive to light. No scleral icterus. No injection or drainage. EARS, NOSE AND THROAT: Nose without bleeding or purulent nasal discharge. NECK: Trach site ok. He is wearing a cervical collar. Posterior neck incision is dry, no redness or drainage CARDIOVASCULAR: Regular rate and rhythm. No murmurs, rubs or gallops heard RESPIRATORY: Clear breath sounds anteriorly, no rhonchi or wheezing appreciated currently ABDOMEN: Soft, nondistended, no reaction to deep palpation.. Bowel sounds present and normoactive. No organomegaly. PEG site ok EXTREMITIES: No clubbing, cyanosis. Has edema both hands, mild pedal edema. NEUROLOGICAL: Awake and following PSYCHIATRIC: Cooperative LINE: No evidence of infection midline RUE Assessment & Plan Remarks IMPRESSION Stridor, etiology? ?poor handling of secretions - has had problem with dysphonia, dysphagia - previous eval showed vocal cord dysfunction MSSA sepsis, due to wound infection posterior neck fusion C4-C7 - S/P incision and sharp debridement April 29 - repeat CT with fluid collection close to hardware - wound C/S no growth Persistent neck wound drainage, C/S negative, ?seroma Traumatic C5-C6 fracture S/P surgery; reop for hematoma and cord compression Mar 2017 Prob with COPD, bronchitis Dysphagia, S/P PEG S/P tracheostomy Low grade temps, atelectasis vs PNA L RECOMMENDATION Continue IV ANcef - plan 6-8 weeks from date of surgery 04/29 - when he gets D/C will refer to Dr Bean, ?chronic suppression since he has hardware Also on Bactrim - to finish 05/10 Start Levaquin Sputum G/S C/S Follow temps Monitor progress Monitor pulmonary status Jaquelin Moran MD May 10, 2017 12:40
[2017-05-10] MEDS ORDERED: diphenhydrAMINE HCL 50 MG/ML VIAL IV PUSH PRN (13:00)
[2017-05-10] MEDS: LEVOFLOXACIN 750 MG TAB PO SCH (14:17)
[2017-05-10] MEDS: RESP: ALBUTEROL 2.5 MG/IPRATROPIUM 0.5 MG NEB (PRN) INH ×2 (16:02→20:24)
--- NOTE | 2017-05-10 17:00 | HHI.PR ---
Subjective Remarks ALERT NO DISTRESS TRACHEOSTOMY IN PLACE Objective Vital Signs Date Time Temp Pulse Resp B/P (MAP) Pulse Ox O2 Delivery O2 Flow Rate FiO2 05/10/17 16:38 100.1 82 19 122/58 (79) 98 05/10/17 16:06 95 T-piece 28 05/10/17 12:45 20 05/10/17 12:17 98.5 94 20 105/65 (78) 99 05/10/17 09:01 98 T-Piece 5.00 28 05/10/17 08:00 98.9 81 20 116/58 (77) 96 05/10/17 07:44 98 T-piece 5.00 28 05/10/17 03:10 98 T-piece 28 05/10/17 01:08 98.8 72 18 97/52 (67) 97 05/09/17 22:08 T-Piece 6.00 28 05/09/17 21:22 98 T-piece 6.00 28 05/09/17 20:47 98.4 92 18 123/51 (75) 100 I/O 05/09/17 05/09/17 05/09/17 05/10/17 05/10/17 05/10/17 07:00 15:00 23:00 07:00 15:00 23:00 Intake Total 1700 ml 700 ml 1031 ml Output Total 550 ml 850 ml Balance 1150 ml -150 ml 1031 ml Intake IV Total 1340 ml Tube Feeding 360 ml 700 ml 831 ml Other 200 ml Output Urine Total 550 ml 850 ml Bladder Scan Volume Amount 14 ml 14 ml Result Diagram: 05/07/17 0414 05/08/17 1055 Objective Remarks GENERAL: SKIN: Warm and dry. HEAD: Atraumatic. Normocephalic. EYES: Pupils equal and round. No scleral icterus. No injection or drainage. ENT: No nasal bleeding or discharge. Mucous membranes pink and moist. NECK: Trachea midline. No JVD. trach. in place CARDIOVASCULAR: Regular rate and rhythm. RESPIRATORY: No accessory muscle use. Clear to auscultation. Breath sounds equal bilaterally. GASTROINTESTINAL: Abdomen soft, non-tender, nondistended. Hepatic and splenic margins not palpable. MUSCULOSKELETAL: Extremities without clubbing, cyanosis, or edema. No obvious deformities. NEUROLOGICAL: Awake and alert. No obvious cranial nerve deficits. Motor grossly within normal limits. Five out of 5 muscle strength in the arms and legs. Normal speech. PSYCHIATRIC: Appropriate mood and affect; insight and judgment normal. Assessment and Plan Assessment and Plan impression S/P TRACH S/P C SPINE SURGERY PLAN PULM TOILET REMOVE TRACH WHEN POSSIBLE Sourav Benjamin MD May 10, 2017 17:00
[2017-05-11] VITALS (8 sets, daily range): BP systolic 108–135; BP diastolic 55–79; PULSE 84–133; RESP 18–22; TEMP 97.8–99.6; O2SAT 95–98
[2017-05-11] MEDS: CHLORHEXIDINE GLUCONATE 2 % 1 PACK (2 CLOTHS) TOP SCH (04:00)
[2017-05-11] MEDS: FREE WATER G-TUBE SCH ×4 (06:00→17:16)
[2017-05-11] MEDS: ceFAZolin 2 GM/50 ML BAG IV SCH ×3 (06:08→21:50)
[2017-05-11] MEDS: SODIUM CHLOR 0.9% 1000 ML INJ 1,000 ML IV SCH (08:12)
[2017-05-11] MEDS: LEVOFLOXACIN 750 MG TAB PO SCH (08:30)
[2017-05-11] MEDS: DOCUSATE SODIUM 50 MG/SENNA 8.6 MG TAB PEG SCH ×2 (08:31→21:00)
[2017-05-11] MEDS: DOXAZOSIN MESYLATE 2 MG TAB PO SCH (08:31)
[2017-05-11] MEDS: SODIUM CHLORIDE 0.9% FLUSH 10 ML FLUSH IV FLUSH SCH ×2 (08:31→21:50)
[2017-05-11] MEDS: CHLORHEXIDINE 0.12% (ORAL KIT) 15 ML CUP MT SCH ×2 (08:31→20:00)
[2017-05-11] MEDS: FAMOTIDINE 20 MG/2 ML VIAL IV PUSH SCH ×2 (08:35→21:50)
--- NOTE | 2017-05-11 10:46 | HHI.PR ---
Subjective Remarks in no acute distress. overall doing fine. walked with PT earlier today. denies pain. no fever. d/w the RN and no acute issues over night. Objective Vitals Vital Signs Date Time Temp Pulse Resp B/P (MAP) Pulse Ox O2 Delivery O2 Flow Rate FiO2 05/11/17 08:06 98.6 87 20 117/65 (82) 95 05/11/17 05:07 99.0 84 18 123/63 (83) 98 05/11/17 00:34 97.8 133 18 135/79 (97) 98 05/10/17 21:58 T-Piece 6.00 28 05/10/17 20:53 98.1 82 18 120/50 (73) 98 05/10/17 16:38 100.1 82 19 122/58 (79) 98 05/10/17 16:06 95 T-piece 28 05/10/17 12:45 20 05/10/17 12:17 98.5 94 20 105/65 (78) 99 I/O 05/10/17 05/10/17 05/10/17 05/11/17 05/11/17 05/11/17 07:00 15:00 23:00 07:00 15:00 23:00 Intake Total 1031 ml 1421 ml Output Total 1600 ml 2350 ml Balance 1031 ml -179 ml -2350 ml Intake IV Total 855 ml Tube Feeding 831 ml 366 ml Other 200 ml 200 ml Output Urine Total 1600 ml 2350 ml # Bowel Movements 1 Result Diagram: 05/07/17 0414 05/08/17 1055 Imaging Last Impressions Chest X-Ray 05/09/17 0000 Signed Impressions: Service Date/Time: Tuesday, May 09, 2017 12:05 - CONCLUSION: 1. Left lower lobe effusion and consolidation new when compared to previous. This is concerning for pneumonia. Michael Henry MD Objective Remarks GENERAL: This is a well-nourished, well-developed patient, in no apparent distress. Neck; trach in place CARDIOVASCULAR: Regular rate and regular rhythm without murmurs, gallops, or rubs. RESPIRATORY: Clear to auscultation. Breath sounds equal bilaterally. No wheezes , rales, or rhonchi. GASTROINTESTINAL: Abdomen soft, non-tender, nondistended. Normal, active bowel sounds- PEG in place MUSCULOSKELETAL: Extremities without clubbing, cyanosis, or edema. NEURO: Alert & Oriented x4 to person, place, time, situation. Moves all ext x4 Procedures tracheostomy Medications and IVs Inpatient Medications Acetaminophen (Tylenol 650 Mg/ 20 ml Liq) 650 mg Q4H PRN PEG PAIN SCALE 1 TO 3 Last administered on 05/07/17 20:14; Start 05/06/17 at 12:45 Albuterol/ Ipratropium (Duoneb Neb) 1 ampule Q4HR NEB PRN INH SHORTNESS OF BREATH Last administered on 05/10/17 20:24; Start 05/06/17 at 10:15 Atropine Sulfate (Atropine Inj) 0.5 mg ONCE ONCE IV PUSH Last administered on 05/06/17 11:15; Start 05/06/17 at 11:15; Stop 05/06/17 at 11:26; Status DC Cefazolin Sodium/ Dextrose (Ancef 2 Gm Premix) 2 gm Q8H IV Last administered on 05/11/17 06:08; Start 05/06/17 at 15:00; Stop 06/23/17 at 23:00 Chlorhexidine Gluconate (Chlorhexidine 2% Cloth) 3 pack UNSCH PRN TOP HYGIENIC CARE; Start 05/06/17 at 10:15 Chlorhexidine Gluconate (Peridex 0.12% Liq) 15 ml BID@08,20 MT Last administered on 05/11/17 08:31; Start 05/06/17 at 20:00 Diphenhydramine HCl (Benadryl Inj) 25 mg Q6H PRN IV PUSH ITCHING Last administered on 05/10/17 20:11; Start 05/10/17 at 13:00 Doxazosin Mesylate (Cardura) 2 mg DAILY PO Last administered on 05/11/17 08:31 ; Start 05/07/17 at 09:00 Enoxaparin Sodium (Lovenox Inj) 30 mg Q24H SQ Last administered on 05/10/17 11 :32; Start 05/07/17 at 11:00 Famotidine (Pepcid Inj) 20 mg Q12HR IV PUSH Last administered on 05/11/17 08: 35; Start 05/06/17 at 21:00 Fentanyl Citrate 250 ml @ 5 mls/hr TITRATE PRN IV SEDATION Last administered on 05/06/17at 11:34; Start 05/06/17 at 12:00; Stop 05/06/17 at 23:00; Status DC Fentanyl Citrate (fentaNYL INJ) 100 mcg ONCE ONCE IV PUSH Last administered on 05/06/17at 12:14; Start 05/06/17 at 12:00; Stop 05/06/17 at 17:09; Status DC Levofloxacin (Levaquin) 750 mg DAILY PO Last administered on 05/11/17at 08:30; Start 05/10/17 at 13:30; Stop 05/16/17 at 23:00 Magnesium Oxide (Mag-Ox) 800 mg UNSCH PRN PO For Magnesium 1.2 - 1.6 mg/dL; Start 05/07/17 at 00:15; Stop 05/10/17 at 10:50; Status DC Magnesium Sulfate 2 gm/Sodium Chloride 100 ml @ 50 mls/hr UNSCH PRN IV For Magnesium 1.2 - 1.6 mg/dL; Start 05/07/17 at 00:15; Stop 05/10/17 at 10:50; Status DC Magnesium Sulfate 4 gm/Sodium Chloride 100 ml @ 50 mls/hr UNSCH PRN IV For Magnesium 0.9 - 1.1 mg/dL; Start 05/07/17 at 00:15; Stop 05/10/17 at 10:50; Status DC Methocarbamol (Robaxin) 500 mg QID PRN PO MUSCLE SPASM; Start 05/06/17 at 12:45 Miscellaneous Information 1 Q361D XX ; Start 05/06/17 at 10:15 Oxycodone HCl (Roxicodone) 5 mg Q4H PRN PO PAIN 1-10 Last administered on at 11:42; Start 05/06/17 at 12:45 Potassium Phosphate (K-Phos) 2,000 mg UNSCH PRN PO/TUBE SEE LABEL COMMENTS; Start 05/07/17 at 00:15; Stop 05/10/17 at 10:50; Status DC Potassium Phosphate 30 mmol/ Sodium Chloride 260 ml @ 42 mls/hr UNSCH PRN IV SEE LABEL COMMENTS; Start 05/07/17 at 00:15; Stop 05/10/17 at 10:50; Status DC Potassium Bicarb/ Potassium Chloride (K-Lyte Cl Eff) 50 meq UNSCH PRN PO For Potassium 3.3 - 3.5 mEq/L; Start 05/07/17 at 00:15; Stop 05/10/17 at 10:50; Status DC Potassium Chloride 100 ml @ 50 mls/hr Q2H PRN IV For Potassium 3.3 - 3.5 mEq/L ; Start 05/07/17 at 00:15; Stop 05/10/17 at 10:50; Status DC Propofol 100 ml @ 2.73 mls/hr TITRATE PRN IV SEDATION Last administered on 12/15at 05:50; Start 05/06/17 at 12:00; Stop 05/08/17 at 17:13; Status DC Propofol (Diprivan 500 Mg/ 50 ml Inj) 50 mg ONCE ONCE IV Last administered on 05/06/17at 11:33; Start 05/06/17 at 11:15; Stop 05/06/17 at 11:25; Status DC Racepinephrine (Racepinephrine 2.25% Neb) 0.5 ml STAT ONCE NEB Last administered on 05/06/17at 11:15; Start 05/06/17 at 11:15; Stop 05/06/17 at 11:25; Status DC Senna/Docusate Sodium (Marge-Colace) 1 tab BID PEG Last administered on at 08:31; Start 05/06/17 at 21:00 Sodium Chloride 500 ml @ 500 mls/hr BOLUS ONCE IV Last administered on at 08:45; Start 05/08/17 at 08:45; Stop 05/08/17 at 09:44; Status DC Sodium Chloride (NS Flush) 2 ml BID IV FLUSH Last administered on 05/10/17at 20: 13; Start 05/06/17 at 11:00 Sodium Phosphate 30 mmol/Sodium Chloride 250 ml @ 42 mls/hr UNSCH PRN IV For Phosphorus < 2.5 mg/dL; Start 05/07/17 at 00:15; Stop 05/10/17 at 10:50; Status DC Trimethoprim/ Sulfamethoxazole (Bactrim 800-160 Mg/20 ml Liq) 20 ml Q12H PO Last administered on 05/10/17at 03:41; Start 05/06/17 at 15:00; Stop 05/10/17 at 12:00; Status DC Water (Free Water) 200 ml Q6HR G-TUBE Last administered on 05/11/17at 06:00; Start 05/08/17 at 08:45 A/P Assessment and Plan Unstable C6 fracture s/p fall 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 Continues to have stridor. Intubated and placed on mechanical ventilation and subsequently underwent percutaneous tracheostomy 05/06/17. evaluated by ENT. Neurosurgical consult as well for evaluation of fluid collection at C3 level. Dr. Castro recommends continuing current antibiotic regimen and further management by his surgeons who performed his cervical spine surgeries If deemed infectious fluid collection, will need with further debridement or instrumentation removal in case deeper infection Trach placed 05/07 for stable airway pulmonary following. MSSA sepsis LLL pneumonia I&D cervical wound with cultures positive for MSSA. -ID following. Plan to continue IV Ancef for 6 weeks from date of surgery 04/29. -Per ID, plan to refer to Dr. Bean at time of discharge, questionable lifelong suppression due to hardware placement -started on Levaquin -follow the sputum culture. Bilateral upper extremity edema -Doppler studies reveal nonocclusive thrombus in the right axillary and brachial veins. 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 Likely dysphonia multifactorial with poor respiratory effort, dry mucosa, decreased cord mobility and thick mucus. -suction prn -ENT consulted UTI -treated. Atrial fibrillation Rate controlled -previously on Plavix per review of medical record -consider anticoagulation to be resumed when ok with neurosurgery. -continue to monitor HR Hypertension -Continue on Cardura 2 mg daily -To monitor BP and adjust treatment accordingly Anemia, suspect postoperative anemia of acute blood loss -Unknown baseline -Monitor for any active bleeding -Monitor CBC as indicated Incidental finding of [address] chest suggestive of spiculated mass -previously discussed finding with and patient on [facility] -Recommend PET scan as outpatient DVT prophylaxis -Bilateral SCD/SARIKA hose/ Lovenox starting 05/07 Discharge Planning dc planning to [facility]. d/w today; will observer for one more day; will be likely ready for discharge tomorrow if stable with no recurrent fever. Cuca Saucedo MD May 11, 2017 10:46
[2017-05-11] MEDS: ENOXAPARIN SODIUM 30 MG/0.3 ML SYRINGE SQ SCH (12:20)
--- NOTE | 2017-05-11 13:06 | HHI.IDPN ---
Subjective Subjective Remarks Patient is an 87-year-old male, who was initially admitted April 10 in another facility after a fall. He was diagnosed to have traumatic C5 to C6 fracture. He underwent C6 partial corpectomy, cervical discectomy anterior approach, fusion C5-C6, posterior cervical fusion C4 to C7. This was complicated by hematoma with cord compression, and he underwent surgery again on April 12 and had evacuation of the hematoma. From there he was discharged to a rehabilitation facility. In the rehabilitation apparently he was having persistent drainage from the posterior cervical neck fusion. He was also having problem with dysphagia. He was admitted again on April 28 for PEG placement. In the rehabilitation facility he was having some fatigue and generalized malaise. He was also noted to have leukocytosis. Blood cultures done in the rehabilitation facility grew MSSA. On his admission April 28 at [facility] he was evaluated by multiple specialists including ENT , GI, and infectious disease. Infectious disease had the neurosurgical involved because of the persistent drainage from his neck fusion. Patient underwent surgery on April 29 and had reexploration of the posterior cervical wound with incision and sharp debridement. Wound culture from that surgery grew MSSA. The operative note was reviewed, and during surgery there was no hardware exposed. He had blood cultures done during that admission, and it came back negative. Patient was stable and transferred to [place] inpatient rehabilitation on May 04. This morning patient apparently developed significant shortness of breath, and stridor. ENT was in the process of evaluating him but he was not completed. Patient was transferred to the intensive care unit for respiratory decompensation. He had undergone tracheostomy placement. He is afebrile. His WBC is normal. His chest x-ray yesterday is normal. Abdominal x-ray yesterday also showed that the PEG tube is in the stomach, and in good position. Infectious disease consultation has been requested to assist with antibiotic management in patient with MSSA bacteremia Notes reviewed Temps 100+ last 24 hours On T-piece - secretions blood tinged Sputum C/S pending CXR 05/09 with new L infiltrate Repeat ESR and CRP lower Procalcitonin 0.16 Wounds C/S negative UC low colony count Yesika CXR 05/06 negative At [place]: ESR 48, CRP 7.9 Antibiotics Ancef Levaquin Current Medications Medications (Trade) Dose Ordered Sig/Vikas Route Start Time Stop Time Status Last Admin (NS Flush) 2 ml UNSCH PRN IV FLUSH 05/06/17 10:15 (NS Flush) 2 ml BID IV FLUSH 05/06/17 11:00 05/10/17 20:13 (Duoneb Neb) 1 ampule Q4HR NEB PRN INH 05/06/17 10:15 05/10/17 20:24 (Peridex 0.12% Liq) 15 ml BID@08,20 MT 05/06/17 20:00 05/11/17 08:31 (Pepcid Inj) 20 mg Q12HR IV PUSH 05/06/17 21:00 05/11/17 08:35 (Lovenox Inj) 30 mg Q24H SQ 05/07/17 11:00 05/11/17 12:20 Miscellaneous Information 1 [id number] XX 05/06/17 10:15 (Chlorhexidine 2% Cloth) 3 pack Taper DAILY@04 TOP 05/07/17 04:00 05/03/18 03:59 (Chlorhexidine 2% Cloth) 3 pack UNSCH PRN TOP 05/06/17 10:15 (Tylenol 650 Mg/ 20 ml Liq) 650 mg Q4H PRN PEG 05/06/17 12:45 05/07/17 20:14 (Ancef 2 Gm Premix) 2 gm Q8H IV 05/06/17 15:00 06/23/17 23:00 05/11/17 06:08 (Cardura) 2 mg DAILY PO 05/07/17 09:00 05/11/17 08:31 (Robaxin) 500 mg QID PRN PO 05/06/17 12:45 (Roxicodone) 5 mg Q4H PRN PO 05/06/17 12:45 05/10/17 11:42 (Marge-Colace) 1 tab BID PEG 05/06/17 21:00 05/11/17 08:31 (Free Water) 200 ml Q6HR G-TUBE 05/08/17 08:45 05/11/17 12:20 Sodium Chloride 1,000 ml @ 42 mls/hr [id number] IV 05/08/17 08:45 05/10/17 00:20 (Benadryl Inj) 25 mg Q6H PRN IV PUSH 05/10/17 13:00 05/10/17 20:11 (Levaquin) 750 mg DAILY PO 05/10/17 13:30 05/16/17 23:00 05/11/17 08:30 Lines Midline Past Medical History Atrial fibrillation Dysphagia Traumatic C5-C6 fracture from a fall Recent MSSA septicemia Kidney stones Past Surgical History Bilateral hip replacement PEG placement Cervical spine surgery March 2017 Allergies: Coded Allergies: aspirin (Unverified Allergy, Severe, RASH/SOB, 10/12/16) ibuprofen (Unverified Allergy, Severe, MOTRIN--RASH/SOB, 10/12/16) Objective . Vital Signs Date Time Temp Pulse Resp B/P (MAP) Pulse Ox O2 Delivery O2 Flow Rate FiO2 05/11/17 11:20 99.1 87 20 128/76 (93) 97 05/11/17 08:06 98.6 87 20 117/65 (82) 95 05/11/17 05:07 99.0 84 18 123/63 (83) 98 05/11/17 00:34 97.8 133 18 135/79 (97) 98 05/10/17 21:58 T-Piece 6.00 28 05/10/17 20:53 98.1 82 18 120/50 (73) 98 05/10/17 16:38 100.1 82 19 122/58 (79) 98 05/10/17 16:06 95 T-piece 28 . Microbiology Date/Time Source Procedure Growth Status 05/10/17 16:25 Sputum Endotracheal Gram Stain - Final Resulted 05/10/17 16:25 Sputum Endotracheal Sputum Culture - Preliminary IMMATURE GROWTH - REINCUBATE Resulted Imaging Chest X-Ray 05/09/17 0000 Signed Impressions: Service Date/Time: Tuesday, May 09, 2017 12:05 - CONCLUSION: 1. Left lower lobe effusion and consolidation new when compared to previous. This is concerning for pneumonia. Michael Henry MD Chest X-Ray 05/06/17 0000 Signed Impressions: Service Date/Time: Saturday, May 06, 2017 12:42 - CONCLUSION: Tracheostomy in good position. Guerrero Henry MD FACR Physical Exam GENERAL: awake and alert, on T-piece, NAD SKIN: Cool and dry. No generalized rash, no ecchymoses and no evidence of embolic lesions. HEAD: Atraumatic. Normocephalic. No temporal wasting, or tenderness. EYES: Pale conjunctiva. No petechia or hemorrhage. Pupils equal, round and reactive to light. No scleral icterus. No injection or drainage. EARS, NOSE AND THROAT: Nose without bleeding or purulent nasal discharge. Moist mucosa. NECK: Trach site ok. He is wearing a cervical collar. Posterior neck incision is dry, no redness or drainage CARDIOVASCULAR: Regular rate and rhythm. No murmurs, rubs or gallops heard RESPIRATORY: Coarse breath sounds bilaterally ABDOMEN: Soft, nondistended, not tender. Bowel sounds present and normoactive. No organomegaly. PEG site ok EXTREMITIES: No clubbing, cyanosis. Has edema both hands, mild pedal edema. NEUROLOGICAL: Awake and following PSYCHIATRIC: Cooperative LINE: No evidence of infection midline RUE Assessment & Plan Remarks IMPRESSION Stridor, etiology? ?poor handling of secretions - has had problem with dysphonia, dysphagia - previous eval showed vocal cord dysfunction MSSA sepsis, due to wound infection posterior neck fusion C4-C7 - S/P incision and sharp debridement April 29 - repeat CT with fluid collection close to hardware - wound C/S no growth Persistent neck wound drainage, C/S negative, ?seroma Traumatic C5-C6 fracture S/P surgery; reop for hematoma and cord compression Mar 2017 Prob with COPD, bronchitis Dysphagia, S/P PEG S/P tracheostomy Low grade temps, atelectasis vs PNA L RECOMMENDATION Continue IV ANcef - plan 6-8 weeks from date of surgery 04/29 - when he gets D/C will refer to Dr Bean, ?chronic suppression since he has hardware Continue Levaquin Add Diflucan Follow Sputum G/S C/S Follow temps Monitor progress Monitor pulmonary status Not ready for D/C since he is febrile D/W Jaquelin Lucero MD May 11, 2017 13:06
[2017-05-11] MEDS: FLUCONAZOLE 100 MG TAB PEG SCH (13:48)
[2017-05-11 14:09] LABS: BILIRUBIN, URINE NEG (NEG); BLOOD, URINE NEG (NEG); GLUCOSE,URINE NEG (NEG); KETONE, URINE NEG (NEG); NITRITE,URINE NEG (NEG); PH, URINE 8.5 (5.0-8.5); URINE COLOR YELLOW (YELLW/STRAW); URINE LEUKOCYTE ESTERASE NEG (NEG)
--- NOTE | 2017-05-11 16:24 | HHI.PR ---
Subjective Remarks ALERT NO DISTRESS TRACHEOSTOMY IN PLACE Objective Vital Signs Date Time Temp Pulse Resp B/P (MAP) Pulse Ox O2 Delivery O2 Flow Rate FiO2 05/11/17 16:18 99.6 85 20 108/55 (72) 97 05/11/17 12:00 95 T-piece 5.00 28 05/11/17 11:20 99.1 87 20 128/76 (93) 97 05/11/17 08:10 T-Piece 6.00 28 Humidified 05/11/17 08:06 98.6 87 20 117/65 (82) 95 05/11/17 05:07 99.0 84 18 123/63 (83) 98 05/11/17 00:34 97.8 133 18 135/79 (97) 98 05/10/17 21:58 T-Piece 6.00 28 05/10/17 20:53 98.1 82 18 120/50 (73) 98 05/10/17 16:38 100.1 82 19 122/58 (79) 98 I/O 05/10/17 05/10/17 05/10/17 05/11/17 05/11/17 05/11/17 07:00 15:00 23:00 07:00 15:00 23:00 Intake Total 1031 ml 1421 ml 0 ml Output Total 1600 ml 2350 ml 1000 ml 400 ml Balance 1031 ml -179 ml -2350 ml -1000 ml -400 ml Intake Oral 0 ml IV Total 855 ml Tube Feeding 831 ml 366 ml Other 200 ml 200 ml Output Urine Total 1600 ml 2350 ml 1000 ml 400 ml # Bowel Movements 1 2 Result Diagram: 05/07/17 0414 05/08/17 1055 Objective Remarks GENERAL: SKIN: Warm and dry. HEAD: Atraumatic. Normocephalic. EYES: Pupils equal and round. No scleral icterus. No injection or drainage. ENT: No nasal bleeding or discharge. Mucous membranes pink and moist. NECK: Trachea midline. No JVD. trach. in place CARDIOVASCULAR: Regular rate and rhythm. RESPIRATORY: No accessory muscle use. Clear to auscultation. Breath sounds equal bilaterally. GASTROINTESTINAL: Abdomen soft, non-tender, nondistended. Hepatic and splenic margins not palpable. MUSCULOSKELETAL: Extremities without clubbing, cyanosis, or edema. No obvious deformities. NEUROLOGICAL: Awake and alert. No obvious cranial nerve deficits. Motor grossly within normal limits. Five out of 5 muscle strength in the arms and legs. Normal speech. PSYCHIATRIC: Appropriate mood and affect; insight and judgment normal. Assessment and Plan Assessment and Plan impression S/P TRACH S/P C SPINE SURGERY PLAN PULM TOILET REMOVE TRACH WHEN POSSIBLE INCREASE ACTIVITY Sourav Benjamin MD May 11, 2017 16:24
--- NOTE | 2017-05-11 16:37 | HHI.HCPN ---
Reason for visit a. To assist with evaluation and management of symptoms including: Shortness of breath, pain, debility b. To assist medical decision maker(s) with: better understanding of current medical conditions; weighing benefits/burdens of medical treatment options; making medical treatment decisions. Subjective/Interval History Patient seen in his room. Patient is being assisted back to bed by bedside RN and LUNCHROOM MOTHER. Patient has ambulated to bathroom with assistance. Bedside RN reported that patient ambulated in the hallway today with physical therapy. Patient is awake, alert and appears to be oriented. Patient mostly communicating by mouthing words and using communication board. Patient endorsing pain to his "tail bone". Pain managed with oxycodone 5 mg q 4 hrs prn. Patient sparingly needing pain medication. Patient is only needed 2 doses in the past 24 hours. Patient remains on T piece 28% saturating mid to high 90s. Patient tolerating tube feeds. Patient had a low-grade fever of 99.1 F orally. Patient to be observed for 1 more day per infectious disease recommendations and will most likely discharge tomorrow to rehab if stable and afebrile. Urinalysis- culture if indicated ordered today. Patient started on Diflucan. Telephone conversation with patient`s Amelia. Updated on patient`s status. Patient`s pleased that patient is improving and she mentioned that she was here earlier on visiting with patient. She is looking forward to have patient back in rehabilitation. Goals remain aggressive. . Family/friend interactions Telephone conversation with patient's . . Advance Directives Living Will: Never completed Health Care Surrogate: Never completed Durable Power of Tour Driver: Never completed Advance Directive Specifics Health Care Surrogate(s): Healthcare proxy -spouse -YanyAmelia fry- [phone] (to bring in copies of living will and healthcare surrogate) . Objective Vital Signs Date Time Temp Pulse Resp B/P (MAP) Pulse Ox O2 Delivery O2 Flow Rate FiO2 05/11/17 12:00 95 T-piece 5.00 28 05/11/17 11:20 99.1 87 20 128/76 (93) 97 05/11/17 08:06 98.6 87 20 117/65 (82) 95 05/11/17 05:07 99.0 84 18 123/63 (83) 98 05/11/17 00:34 97.8 133 18 135/79 (97) 98 05/10/17 21:58 T-Piece 6.00 28 05/10/17 20:53 98.1 82 18 120/50 (73) 98 05/10/17 16:38 100.1 82 19 122/58 (79) 98 Intake & Output 05/11/17 05/11/17 07:00 19:00 Output Total 2350 ml Balance -2350 ml Output Urine Total 2350 ml Physical Exam CONSTITUTIONAL/GENERAL: This is an adequately nourished patient, in no apparent distress, alert, tracheostomy tube tepees TUBES/LINES/DRAINS: PIV right upper extremity, tracheostomy, Wolf catheter, SCDs, PEG tube NECK: Tracheostomy midline. Supple, nontender. CARDIOVASCULAR: Irregular rate and rhythm without murmur. Peripheral pulses symmetric. 2+ edema bilateral lower arms, hands. RESPIRATORY/CHEST: Symmetric, unlabored respirations on 28% FiO2 T piece. Clear to auscultation. Breath sounds equal bilaterally. GASTROINTESTINAL: Abdomen soft, non-tender, nondistended. No guarding. Intermittent bowel sounds. PEG tube clamped. GENITOURINARY: Without palpable bladder distension. Wolf catheter MUSCULOSKELETAL: Extremities without clubbing, cyanosis. + Edema upper extremities. No joint tenderness or effusion noted. NEUROLOGICAL: Alert. Communicates by mouthing words and using a communication board. Following commands with all 4 extremities. PSYCHIATRIC no evident anxiety or depression Diagnostic Tests Laboratory Laboratory Tests Test 05/08/17 16:37 05/11/17 13:53 Erythrocyte Sedimentation Rate 36 mm/hr (0-20) C-Reactive Protein 6.88 MG/DL (0.00-0.30) Procalcitonin 0.16 ng/mL (0.00-0.08) Urine Color YELLOW (YELLW/STRAW) Urine Turbidity CLEAR (CLEAR) Urine pH 8.5 (5.0-8.5) Urine Specific [place] 1.016 (1.002-1.035) Urine Protein TRACE mg/dL (NEG-TRACE) Urine Glucose (UA) NEG mg/dL (NEG) Urine Ketones NEG mg/dL (NEG) Urine Occult Blood NEG (NEG) Urine Nitrite NEG (NEG) Urine Bilirubin NEG (NEG) Urine Urobilinogen LESS THAN 2.0 MG/DL (LESS Urine Leukocyte Esterase NEG (NEG) Urine RBC 1 /hpf (0-3) Urine WBC 3 /hpf (0-5) Microscopic Urinalysis Comment CATH-CULT NOT IND Result Diagram: 05/07/17 0414 05/08/17 1055 Microbiology Microbiology Date/Time Source Procedure Growth Status 05/10/17 16:25 Sputum Endotracheal Gram Stain - Final Resulted 05/10/17 16:25 Sputum Endotracheal Sputum Culture - Preliminary IMMATURE GROWTH - REINCUBATE Resulted Procedures 05/06/2017-endotracheal intubation and bronchoscopy 05/06/2017-percutaneous tracheostomy placement . Assessment and Plan Disease Oriented Problem List: (1) Acute respiratory failure (2) Dysphagia (3) Cervical spinal cord injury (4) MSSA (methicillin susceptible Staphylococcus aureus) septicemia (5) Anemia (6) A-fib (7) Hypertension Symptom Scale: (1) Shortness of breath 0-10 Scale: Unable to quantify Comment: History of C5-C6 fracture status post surgery, dysphagia. . (2) Pain 0-10 Scale: Unable to quantify Comment: Multifactorial. History of C5-C6 fracture status post surgery. Patient required tracheostomy placement 05/06/17. Currently bedbound. . (3) Debility 0-10 Scale: Unable to quantify Comment: Progressive . Pertinent Non-Medical Issues Psychosocial:Patient was born in [place]. 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 Patient has been 3 times and twice. Patient has been to his current Amelia for 34 years. Patient had 3 children, one , one adult daughter and one adult son. Spiritual: No [employer] affiliation. Legal:. Patient spells he has advanced directives and she will bring in copies Ethical issues impacting care: None identified at this time . Important Contacts Spouse -Amelia Mcfarland- [phone] . Prognosis Mr. Mcfarland is a 87 years old male with a past medical history of atrial fibrillation, dysphagia, traumatic C5-C6 fracture from a fall, recent MSSA septicemia and kidney stones. [facility] after rapid response was called due to worsening audible stridor. Patient is status post C6 partial corpectomy, cervical discectomy anterior approach, fusion C5-C6 posterior, cervical fusion C4-C7. Patient has had complications with hematoma with cord compression requiring with repeat surgery to evacuate hematoma, persistent drainage from posterior cervical neck fusion site, dysphagia and acute respiratory failure requiring tracheostomy. Given ongoing comorbidities and prolonged hospitalization, patient remains at high risk for further complications, deterioration and decline. . Code Status: Full Code Plan PLAN: Legal decision maker: Patient now more alert, able to communicate some .Patient should be able to participate more in decision-making in the coming days. According to [place] statute his Amelia Mcfarland would be his healthcare proxy. Goals: No changes-Remain aggressive CODE STATUS: Full code Telephone conversation with patient`s Amelia. Updated on patient`s status. Patient`s pleased that patient is improving and she mentioned that she was here earlier on visiting with patient. She is looking forward to have patient back in rehabilitation. Goals remain aggressive. SYMPTOMS: * Shortness of breath: Patient is he has a history of C5-C6 fracture status post partial corpectomy, discectomy and fusion. Patient also is history of dysphagia. Admitted for acute respiratory failure. Required Tracheostomy placement on 05/06/17 and mechanical ventilation. Patient tolerated CPAP trials now tolerating T piece to trach. Discharge planning for rehabilitation. Repeat CXR today Left lower lobe effusion and consolidation new when compared to previous. This is concerning for pneumonia * Pain: Multifactorial. History of C5-C6 fracture status post surgery. Patient underwent tracheostomy placement 05/06/17. Currently bedbound. Patient has been on oxycodone 5 mg q 4 hrs prn, methocarbamol 500mg QID. Last dose oxycodone 05/11, sparing requirement --x2 doses in the past 24hrs. Patient c/o pain to his "tail bone". No recommendations, continue to evaluate patient medication requirements/effectiveness * Debility: Progressive. Patient is he had prolonged hospitalizations and was currently in [place] rehabilitation. Patient will benefit from physical, and speech therapy. Case management assisting with discharge planning. Palliative care will continue to follow the patient during hospital course as condition evolves, to assist patient/decision-maker with understanding of their medical conditions, weighing benefits/burdens of treatment options, for clarification of goals of treatment. Additionally will assist with any symptoms of palliative concern Flavia Zavaleta May 11, 2017 16:37
[2017-05-11 17:23] LABS: AUTOMATED NEUTROPHIL # 4.9 TH/MM3 (1.8-7.7); BASOPHIL % 0.6 % (0.0-2.0); EOSINOPHIL # 0.3 TH/MM3 (0-0.4); HEMATOCRIT 27.1 % (39.0-51.0); HEMOGLOBIN 9.3 GM/DL (13.0-17.0); LYMPH % 14.4 % (9.0-44.0); MEAN CELL VOLUME 91.2 FL (80.0-100.0); MEAN CORPUSCULAR HEMOGLOBIN 31.2 PG (27.0-34.0); MEAN CORPUSCULAR HGB CONC 34.2 % (32.0-36.0); MEAN PLATELET VOLUME 7.6 FL (7.0-11.0); MONO % 9.1 % (0.0-8.0); MONOCYTE # 0.6 TH/MM3 (0-0.9); NEUT % 71.9 % (16.0-70.0); PLATELET COUNT 215 TH/MM3 (150-450); RED BLOOD COUNT 2.97 MIL/MM3 (4.50-5.90); RED CELL DISTRIBUTION WIDTH 15.3 % (11.6-17.2); WHITE BLOOD COUNT 6.8 TH/MM3 (4.0-11.0)
[2017-05-11 18:07] LABS: BICARBONATE 29.2 MEQ/L (21.0-32.0); CALCIUM 8.4 MG/DL (8.5-10.1); CREATININE 0.71 MG/DL (0.60-1.30)
[2017-05-12 00:15] VITALS: BP 150/67; PULSE 89; RESP 20; TEMP 98.8; O2SAT 98
[2017-05-12] MEDS: RESP: ALBUTEROL 2.5 MG/IPRATROPIUM 0.5 MG NEB (PRN) INH (02:25)
[2017-05-12] MEDS: CHLORHEXIDINE GLUCONATE 2 % 1 PACK (2 CLOTHS) TOP SCH (04:00)
[2017-05-12] MEDS: FREE WATER G-TUBE SCH ×4 (05:43→16:37)
[2017-05-12] MEDS: ceFAZolin 2 GM/50 ML BAG IV SCH ×2 (05:55→14:56)
[2017-05-12 06:00] VITALS: BP 128/68; PULSE 88; RESP 18; TEMP 97.9; O2SAT 98
[2017-05-12 08:00] VITALS: BP 119/58; PULSE 77; RESP 18; TEMP 98.6; O2SAT 98
[2017-05-12] MEDS: CHLORHEXIDINE 0.12% (ORAL KIT) 15 ML CUP MT SCH (08:00)
[2017-05-12] MEDS: SODIUM CHLOR 0.9% 1000 ML INJ 1,000 ML IV SCH (08:01)
[2017-05-12] MEDS: SODIUM CHLORIDE 0.9% FLUSH 10 ML FLUSH IV FLUSH SCH (09:00)
[2017-05-12 09:10] VITALS: O2SAT 95
[2017-05-12] MEDS: LEVOFLOXACIN 750 MG TAB PO SCH (09:33)
[2017-05-12] MEDS: DOXAZOSIN MESYLATE 2 MG TAB PO SCH (09:33)
[2017-05-12] MEDS: DOCUSATE SODIUM 50 MG/SENNA 8.6 MG TAB PEG SCH (09:34)
[2017-05-12] MEDS: FAMOTIDINE 20 MG/2 ML VIAL IV PUSH SCH (09:35)
[2017-05-12] MEDS: ENOXAPARIN SODIUM 30 MG/0.3 ML SYRINGE SQ SCH (10:58)
--- NOTE | 2017-05-12 11:49 | HHI.IDPN ---
Subjective Subjective Remarks Patient is an 87-year-old male, who was initially admitted April 10 in another facility after a fall. He was diagnosed to have traumatic C5 to C6 fracture. He underwent C6 partial corpectomy, cervical discectomy anterior approach, fusion C5-C6, posterior cervical fusion C4 to C7. This was complicated by hematoma with cord compression, and he underwent surgery again on April 12 and had evacuation of the hematoma. From there he was discharged to a rehabilitation facility. In the rehabilitation apparently he was having persistent drainage from the posterior cervical neck fusion. He was also having problem with dysphagia. He was admitted again on April 28 for PEG placement. In the rehabilitation facility he was having some fatigue and generalized malaise. He was also noted to have leukocytosis. Blood cultures done in the rehabilitation facility grew MSSA. On his admission April 28 at [facility] he was evaluated by multiple specialists including ENT , GI, and infectious disease. Infectious disease had the neurosurgical involved because of the persistent drainage from his neck fusion. Patient underwent surgery on April 29 and had reexploration of the posterior cervical wound with incision and sharp debridement. Wound culture from that surgery grew MSSA. The operative note was reviewed, and during surgery there was no hardware exposed. He had blood cultures done during that admission, and it came back negative. Patient was stable and transferred to [facility] inpatient rehabilitation on May 04. This morning patient apparently developed significant shortness of breath, and stridor. ENT was in the process of evaluating him but he was not completed. Patient was transferred to the intensive care unit for respiratory decompensation. He had undergone tracheostomy placement. He is afebrile. His WBC is normal. His chest x-ray yesterday is normal. Abdominal x-ray yesterday also showed that the PEG tube is in the stomach, and in good position. Infectious disease consultation has been requested to assist with antibiotic management in patient with MSSA bacteremia Notes reviewed Temps 1better On T-piece , doing well Sputum C/S normal resp antonella CXR 05/09 with new L infiltrate Repeat ESR and CRP lower Procalcitonin 0.16 Wounds C/S negative UC low colony count Yesika CXR 05/06 negative At [facility]: ESR 48, CRP 7.9 Antibiotics Ancef Levaquin Current Medications Medications (Trade) Dose Ordered Sig/Vikas Route Start Time Stop Time Status Last Admin (NS Flush) 2 ml UNSCH PRN IV FLUSH 05/06/17 10:15 (NS Flush) 2 ml BID IV FLUSH 05/06/17 11:00 05/11/17 21:50 (Duoneb Neb) 1 ampule Q4HR NEB PRN INH 05/06/17 10:15 05/12/17 02:25 (Peridex 0.12% Liq) 15 ml BID@08,20 MT 05/06/17 20:00 05/11/17 08:31 (Pepcid Inj) 20 mg Q12HR IV PUSH 05/06/17 21:00 05/12/17 09:35 (Lovenox Inj) 30 mg Q24H SQ 05/07/17 11:00 05/12/17 10:58 Miscellaneous Information 1 [id number] XX 05/06/17 10:15 (Chlorhexidine 2% Cloth) Taper DAILY@04 TOP 05/07/17 04:00 05/03/18 03:59 (Chlorhexidine 2% Cloth) 3 pack UNSCH PRN TOP 05/06/17 10:15 (Tylenol 650 Mg/ 20 ml Liq) 650 mg Q4H PRN PEG 05/06/17 12:45 05/07/17 20:14 (Ancef 2 Gm Premix) 2 gm Q8H IV 05/06/17 15:00 06/23/17 23:00 05/12/17 05:55 (Cardura) 2 mg DAILY PO 05/07/17 09:00 05/12/17 09:33 (Robaxin) 500 mg QID PRN PO 05/06/17 12:45 (Roxicodone) 5 mg Q4H PRN PO 05/06/17 12:45 05/12/17 05:56 (Marge-Colace) 1 tab BID PEG 05/06/17 21:00 05/12/17 09:34 (Free Water) 200 ml Q6HR G-TUBE 05/08/17 08:45 05/12/17 11:07 Sodium Chloride 1,000 ml @ 42 mls/hr [id number] IV 05/08/17 08:45 05/10/17 00:20 (Benadryl Inj) 25 mg Q6H PRN IV PUSH 05/10/17 13:00 05/10/17 20:11 (Levaquin) 750 mg DAILY PO 05/10/17 13:30 05/16/17 23:00 05/12/17 09:33 (Diflucan) 100 mg Q24H PEG 05/11/17 14:00 05/18/17 13:59 05/11/17 13:48 Lines Midline Past Medical History Atrial fibrillation Dysphagia Traumatic C5-C6 fracture from a fall Recent MSSA septicemia Kidney stones Past Surgical History Bilateral hip replacement PEG placement Cervical spine surgery March 2017 Allergies: Coded Allergies: aspirin (Unverified Allergy, Severe, RASH/SOB, 10/12/16) ibuprofen (Unverified Allergy, Severe, MOTRIN--RASH/SOB, 10/12/16) Objective . Vital Signs Date Time Temp Pulse Resp B/P (MAP) Pulse Ox O2 Delivery O2 Flow Rate FiO2 05/12/17 09:55 98 T-Piece 6.00 28 05/12/17 09:10 95 T-piece 28 05/12/17 08:00 98.6 77 18 119/58 (78) 98 05/12/17 06:00 97.9 88 18 128/68 (88) 98 05/12/17 02:17 98 T-Piece 6.00 28 05/12/17 00:15 98.8 89 20 150/67 (94) 98 05/11/17 21:50 98.1 96 22 114/55 (74) 97 05/11/17 20:00 T-Piece 6.00 28 05/11/17 19:39 97 T-piece 28 05/11/17 16:18 99.6 85 20 108/55 (72) 97 05/11/17 12:00 95 T-piece 5.00 28 05/12/17 05/12/17 05/13/17 15:00 23:00 07:00 # Bowel Movements 1 . Laboratory Tests Test 05/11/17 16:48 White Blood Count 6.8 TH/MM3 Red Blood Count 2.97 MIL/MM3 Hemoglobin 9.3 GM/DL Hematocrit 27.1 % Mean Corpuscular Volume 91.2 FL Mean Corpuscular Hemoglobin 31.2 PG Mean Corpuscular Hemoglobin Concent 34.2 % Red Cell Distribution Width 15.3 % Platelet Count 215 TH/MM3 Mean Platelet Volume 7.6 FL Neutrophils (%) (Auto) 71.9 % Lymphocytes (%) (Auto) 14.4 % Monocytes (%) (Auto) 9.1 % Eosinophils (%) (Auto) 4.0 % Basophils (%) (Auto) 0.6 % Neutrophils # (Auto) 4.9 TH/MM3 Lymphocytes # (Auto) 1.0 TH/MM3 Monocytes # (Auto) 0.6 TH/MM3 Eosinophils # (Auto) 0.3 TH/MM3 Basophils # (Auto) 0.0 TH/MM3 CBC Comment DIFF FINAL Differential Comment Laboratory Tests Test 05/11/17 16:48 Blood Urea Nitrogen 15 MG/DL Creatinine 0.71 MG/DL Random Glucose 97 MG/DL Calcium Level 8.4 MG/DL Sodium Level 136 MEQ/L Potassium Level 4.3 MEQ/L Chloride Level 100 MEQ/L Carbon Dioxide Level 29.2 MEQ/L Anion Gap 7 MEQ/L Estimat Glomerular Filtration Rate 105 ML/MIN Microbiology Date/Time Source Procedure Growth Status 05/10/17 16:25 Sputum Endotracheal Gram Stain - Final Complete 05/10/17 16:25 Sputum Endotracheal Sputum Culture - Final HEAVY GROWTH NORMAL RESPIRATORY ANTONELLA Complete Imaging Chest X-Ray 05/09/17 0000 Signed Impressions: Service Date/Time: Tuesday, May 09, 2017 12:05 - CONCLUSION: 1. Left lower lobe effusion and consolidation new when compared to previous. This is concerning for pneumonia. Michael Henry MD Chest X-Ray 05/06/17 0000 Signed Impressions: Service Date/Time: Saturday, May 06, 2017 12:42 - CONCLUSION: Tracheostomy in good position. Guerrero Henry MD FACR Physical Exam GENERAL: awake and alert, on T-piece, NAD SKIN: Cool and dry. No generalized rash, no ecchymoses and no evidence of embolic lesions. HEAD: Atraumatic. Normocephalic. No temporal wasting, or tenderness. EYES: Pale conjunctiva. No petechia or hemorrhage. Pupils equal, round and reactive to light. No scleral icterus. No injection or drainage. EARS, NOSE AND THROAT: Nose without bleeding or purulent nasal discharge. Moist mucosa. NECK: Trach site ok. He is wearing a cervical collar. Posterior neck incision is dry, no redness or drainage CARDIOVASCULAR: Regular rate and rhythm. No murmurs, rubs or gallops heard RESPIRATORY: Coarse breath sounds bilaterally ABDOMEN: Soft, nondistended, not tender. Bowel sounds present and normoactive. No organomegaly. PEG site ok EXTREMITIES: No clubbing, cyanosis. Has edema both hands, mild pedal edema. NEUROLOGICAL: Awake and following PSYCHIATRIC: Cooperative LINE: No evidence of infection Assessment & Plan Remarks IMPRESSION Stridor, etiology? ?poor handling of secretions - has had problem with dysphonia, dysphagia - previous eval showed vocal cord dysfunction MSSA sepsis, due to wound infection posterior neck fusion C4-C7 - S/P incision and sharp debridement April 29 - repeat CT with fluid collection close to hardware - wound C/S no growth Persistent neck wound drainage, C/S negative, ?seroma Traumatic C5-C6 fracture S/P surgery; reop for hematoma and cord compression Mar 2017 Prob with COPD, bronchitis Dysphagia, S/P PEG S/P tracheostomy Low grade temps, atelectasis vs PNA L - better RECOMMENDATION Continue IV ANcef - plan 6-8 weeks from date of surgery 04/29 - end date June 23 - when he gets D/C will refer to Dr Bean, ?chronic suppression since he has hardware Continue Levaquin, give 7 days Also on Diflucan PICC Doing well and ok to go to Rehab - accepted at [facility] D/W Jaquelin Hemphill MD May 12, 2017 11:49
--- NOTE | 2017-05-12 12:07 | HHI.FF ---
Infusion Therapy Location of Infusion Therapy: [facility] Infusion Therapy Order (At [facility]) Patient Information Patient Weight 90 kg Diagnosis: Diagnosis MSSA sepsis, with cervical wound infection, has hardware Coded Allergies: aspirin (Unverified Allergy, Severe, RASH/SOB, 10/12/16) ibuprofen (Unverified Allergy, Severe, MOTRIN--RASH/SOB, 10/12/16) Administer Medication Cefazolin 2 grams IV q 8 hours Stop Treatment: Jun 23, 2017 Additional Information Venous access: PICC Line Additional Instructions [x] Peripheral flush and dressing changes per protocol [x] Implanted port and central electrical line mechanic: * Implanted port: 10 ml Normal Saline followed by 5 ml Heparin 100 units/ml Heparin flush after each use and monthly to maintain. [] May leave port accessed during therapy. [] May leave peripheral site accessed for duration of therapy. [x] If patient has SOB or respiratory distress, check oxygen saturation. If less than 90% or clinical signs of respiratory distress, administer oxygen at 2 L/min. via nasal cannula and notify physician. [x] Anaphylaxis/Reaction orders: * Stop infusion. * Keep IV line open with saline flush. * Notify physician. * Monitor vital signs every 15 minutes until symptoms resolve. * Check Oxygen saturation; Oxygen at 2 L/min. via nasal cannula if less than 90% or clinical signs of respiratory distress. * Administer diphenhydramine (Benadryl) 25 mg IV STAT, (unless patient has received as pre-med). May repeat once, if necessary. * Solu-Cortef 250 mg IVP over 30-60 seconds, use 100 mg vials for each dissolution. * Epinephrine (1mg/1 ml) 0.3 mg subcutaneously or IVP now with any signs of respiratory distress. * Check with physician for new additional pre-med orders if patient is re- challenged or re-treated. [x] May remove PICC line when treatment complete, after confirming with Physician. [x] If the patient is admitted to the hospital, the ED, or transferred via [facility] , complete transfer form including medication reconciliation order sheet. Laboratory Tests Weekly Labs: CBC w/diff, Creatinine, LFT's (Hepatic function test) (Labs every Tuesday while on Abx) Jaquelin Moran MD May 12, 2017 12:07
--- NOTE | 2017-05-12 12:27 | HHI.HCPN ---
Reason for visit a. To assist with evaluation and management of symptoms including: Shortness of breath, pain, debility b. To assist medical decision maker(s) with: better understanding of current medical conditions; weighing benefits/burdens of medical treatment options; making medical treatment decisions. Subjective/Interval History Follow up for symptom management further clarification of goals. Patient seen and examined in his room. Patient is in bed, awake, alert and appears oriented. Patient mostly communicates by mouthing words with his lips and sometimes uses a communication board. Patient is able to smile. Mouthed what appears to be,"i` m feeling better". Patient denies pain today. Pain being managed with Oxycodone 5 mg- patient sparingly needing pain medication. Patient remains afebrile. Urinalysis 05/11 negative and no culture indicated. Explained to patient that while he was sedated and on mechanical ventilation his made medical decisions for him and one of the decisions was to keep patient as a full code. Explained what full code meant and patient nodded his head to acknowledge understanding. Asked the patient if he elects full code or DNR for himself. Depicting from his nodding head, it appears that patient would want to remain as a full code and patient also nodded his head for yes to acknowledge that he wants his to make medical decisions for him. Patient will most likely be discharged back to [facility] today. Hopefully he will reach a stage whereby he can have a passy gustabo valve and be able to communicate. Case discussed with bedside RN. . Family/friend interactions No family at bedside. . Advance Directives Living Will: Never completed Health Care Surrogate: Never completed Durable Power of Children'S Author: Never completed Advance Directive Specifics Health Care Surrogate(s): Healthcare proxy -spouse -Amelia Mcfarland- [phone] (to bring in copies of living will and healthcare surrogate) . Objective Vital Signs Date Time Temp Pulse Resp B/P (MAP) Pulse Ox O2 Delivery O2 Flow Rate FiO2 05/12/17 09:55 98 T-Piece 6.00 28 05/12/17 09:10 95 T-piece 28 05/12/17 08:00 98.6 77 18 119/58 (78) 98 05/12/17 06:00 97.9 88 18 128/68 (88) 98 3/15/18 02:17 98 T-Piece 6.00 28 05/12/17 00:15 98.8 89 20 150/67 (94) 98 05/11/17 21:50 98.1 96 22 114/55 (74) 97 05/11/17 20:00 T-Piece 6.00 28 05/11/17 19:39 97 T-piece 28 05/11/17 16:18 99.6 85 20 108/55 (72) 97 Intake & Output 05/12/17 05/12/17 07:00 19:00 Intake Total 0 ml Output Total 1800 ml Balance -1800 ml Intake Oral 0 ml Output Urine Total 1800 ml # Bowel Movements 0 1 Physical Exam CONSTITUTIONAL/GENERAL: This is an adequately nourished patient, in no apparent distress, alert, on T-Trevino TUBES/LINES/DRAINS: PIV right upper extremity, tracheostomy, Wolf catheter, SCDs, PEG tube NECK: Tracheostomy midline. Supple, nontender. CARDIOVASCULAR: Irregular rate and rhythm without murmur. Peripheral pulses symmetric. 2+ edema bilateral lower arms, hands. RESPIRATORY/CHEST: Symmetric, unlabored respirations on 28% FiO2 T piece. Clear to auscultation. Breath sounds equal bilaterally. GASTROINTESTINAL: Abdomen soft, non-tender, nondistended. No guarding. Intermittent bowel sounds. PEG tube clamped. GENITOURINARY: Without palpable bladder distension. Wolf catheter MUSCULOSKELETAL: Extremities without clubbing, cyanosis. + Edema upper extremities. No joint tenderness or effusion noted. NEUROLOGICAL: Alert. Communicates by mouthing words and using a communication board. Following commands with all 4 extremities. PSYCHIATRIC: Calm. no evidence of anxiety or depression . Diagnostic Tests Laboratory Laboratory Tests Test 05/11/17 13:53 05/11/17 16:48 Urine Color YELLOW (YELLW/STRAW) Urine Turbidity CLEAR (CLEAR) Urine pH 8.5 (5.0-8.5) Urine Specific Vera 1.016 (1.002-1.035) Urine Protein TRACE mg/dL (NEG-TRACE) Urine Glucose (UA) NEG mg/dL (NEG) Urine Ketones NEG mg/dL (NEG) Urine Occult Blood NEG (NEG) Urine Nitrite NEG (NEG) Urine Bilirubin NEG (NEG) Urine Urobilinogen LESS THAN 2.0 MG/DL (LESS Urine Leukocyte Esterase NEG (NEG) Urine RBC 1 /hpf (0-3) Urine WBC 3 /hpf (0-5) Microscopic Urinalysis Comment CATH-CULT NOT IND White Blood Count 6.8 TH/MM3 (4.0-11.0) Red Blood Count 2.97 MIL/MM3 (4.50-5.90) Hemoglobin 9.3 GM/DL (13.0-17.0) Hematocrit 27.1 % (39.0-51.0) Mean Corpuscular Volume 91.2 FL (80.0-100.0) Mean Corpuscular Hemoglobin 31.2 PG (27.0-34.0) Mean Corpuscular Hemoglobin Concent 34.2 % (32.0-36.0) Red Cell Distribution Width 15.3 % (11.6-17.2) Platelet Count 215 TH/MM3 (150-450) Mean Platelet Volume 7.6 FL (7.0-11.0) Neutrophils (%) (Auto) 71.9 % (16.0-70.0) Lymphocytes (%) (Auto) 14.4 % (9.0-44.0) Monocytes (%) (Auto) 9.1 % (0.0-8.0) Eosinophils (%) (Auto) 4.0 % (0.0-4.0) Basophils (%) (Auto) 0.6 % (0.0-2.0) Neutrophils # (Auto) 4.9 TH/MM3 (1.8-7.7) Lymphocytes # (Auto) 1.0 TH/MM3 (1.0-4.8) Monocytes # (Auto) 0.6 TH/MM3 (0-0.9) Eosinophils # (Auto) 0.3 TH/MM3 (0-0.4) Basophils # (Auto) 0.0 TH/MM3 (0-0.2) CBC Comment DIFF FINAL Differential Comment Blood Urea Nitrogen 15 MG/DL (7-18) Creatinine 0.71 MG/DL (0.60-1.30) Random Glucose 97 MG/DL (74-106) Calcium Level 8.4 MG/DL (8.5-10.1) Sodium Level 136 MEQ/L (136-145) Potassium Level 4.3 MEQ/L (3.5-5.1) Chloride Level 100 MEQ/L (98-107) Carbon Dioxide Level 29.2 MEQ/L (21.0-32.0) Anion Gap 7 MEQ/L (5-15) Estimat Glomerular Filtration Rate 105 ML/MIN (>89) Result Diagram: 05/11/17 1648 05/11/17 1648 Microbiology Microbiology Date/Time Source Procedure Growth Status 05/10/17 16:25 Sputum Endotracheal Gram Stain - Final Complete 05/10/17 16:25 Sputum Endotracheal Sputum Culture - Final HEAVY GROWTH NORMAL RESPIRATORY MATTIE Complete Procedures 05/06/2017-endotracheal intubation and bronchoscopy 05/06/2017-percutaneous tracheostomy placement . Assessment and Plan Disease Oriented Problem List: (1) Acute respiratory failure (2) Dysphagia (3) Cervical spinal cord injury (4) MSSA (methicillin susceptible Staphylococcus aureus) septicemia (5) Anemia (6) A-fib (7) Hypertension Symptom Scale: (1) Shortness of breath 0-10 Scale: Unable to quantify Comment: History of C5-C6 fracture status post surgery, dysphagia. . (2) Pain 0-10 Scale: Unable to quantify Comment: Multifactorial. History of C5-C6 fracture status post surgery. Patient required tracheostomy placement 05/06/17. Currently bedbound. . (3) Debility 0-10 Scale: Unable to quantify Comment: Progressive . Pertinent Non-Medical Issues Psychosocial:Patient was born in [place]. 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 Patient has been 3 times and twice. Patient has been to his current Amelia for 34 years. Patient had 3 children, one , one adult daughter and one adult son. Spiritual: No baptism affiliation. Legal:Patient spells he has advanced directives and she will bring in copies Ethical issues impacting care: None identified at this time . Important Contacts Spouse -Amelia Mcfarland- [phone] . Prognosis Mr. Mcfarland is a 87 years old male with a past medical history of atrial fibrillation, dysphagia, traumatic C5-C6 fracture from a fall, recent MSSA septicemia and kidney stones. [facility] after rapid response was called due to worsening audible stridor. Patient is status post C6 partial corpectomy, cervical discectomy anterior approach, fusion C5-C6 posterior, cervical fusion C4-C7. Patient has had complications with hematoma with cord compression requiring with repeat surgery to evacuate hematoma, persistent drainage from posterior cervical neck fusion site, dysphagia and acute respiratory failure requiring tracheostomy. Given ongoing comorbidities and prolonged hospitalization, patient remains at high risk for further complications, deterioration and decline. . Code Status: Full Code Plan PLAN: Legal decision maker: Patient now more alert, able to communicate some .Patient should be able to participate more in decision-making in the coming days. According to [place] statute his Amelia Mcfarland would be his healthcare proxy. Goals: No changes-Remain aggressive CODE STATUS: Full code Explained to patient that while he was sedated and on mechanical ventilation his made medical decisions for him and one of the decisions was to keep patient as a full code. Explained what full code meant and patient nodded his head to acknowledge understanding. Asked the patient if he elects full code or DNR for himself. Depicting from his nodding head, it appears that patient would want to remain as a full code and patient also nodded his head for yes to acknowledge that he wants his to make medical decisions for him. SYMPTOMS: * Shortness of breath: Patient is he has a history of C5-C6 fracture status post partial corpectomy, discectomy and fusion. Patient also has history of dysphagia. Admitted for acute respiratory failure. Required Tracheostomy placement on 05/06/17 and mechanical ventilation. Patient tolerated CPAP trials now tolerating T piece to trach. Discharge planning for rehabilitation. Repeat CXR today Left lower lobe effusion and consolidation new when compared to previous. This is concerning for pneumonia. Patient currently in no respiratory distress. Tolerating T-Trevino 28% with O2 saturation in the mid to high 90s. * Pain: Multifactorial. History of C5-C6 fracture status post surgery. Patient underwent tracheostomy placement 05/06/17. Currently bedbound. Patient has been on oxycodone 5 mg q 4 hrs prn, methocarbamol 500mg QID. Last dose oxycodone 05/12, sparing requirement. Patient denying pain. No recommendations , continue to evaluate patient medication requirements/effectiveness. * Debility: Progressive. Patient is he had prolonged hospitalizations and was currently in [facility] rehabilitation. Patient will benefit from physical, and speech therapy. Case management assisting with discharge planning. Palliative care will continue to follow the patient during hospital course as condition evolves, to assist patient/decision-maker with understanding of their medical conditions, weighing benefits/burdens of treatment options, for clarification of goals of treatment. Additionally will assist with any symptoms of palliative concern Attestation To help prompt me to consider important information that might be impacting today's encounter and assessment, information from prior notes written by myself or my colleagues may have been "brought forward" into today's note. My signature on this note, however, is an attestation that I personally performed the exam, history, and/or decision-making noted today, and, unless otherwise indicated, the interactions with patient, family, and staff as well as the review of records all occurred today. I also attest that the listed assessment and stated plan reflect my best clinical judgment today based on the combination of historical information, prior notes, and today's exam/ interactions. When time spent is documented, it refers only to time spent today by the signer, or if indicated, combined time spent today by collaborating physician/nurse practitioner. Flavia Zavaleta May 12, 2017 12:27
--- NOTE | 2017-05-12 13:00 | HHI.DS ---
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 , initial encounter Status: Acute (2) Cervical spinal cord injury ICD Code: S14.109A - Unspecified injury at unspecified level of cervical spinal cord, initial encounter Status: Acute (3) MSSA (methicillin susceptible Staphylococcus aureus) septicemia ICD Code: A41.01 - Sepsis due to Methicillin susceptible Staphylococcus aureus Status: Acute (4) Dysphasia ICD Code: R47.02 - Dysphasia Status: Acute (5) Tracheostomy in place ICD Code: Z93.0 - Tracheostomy status Status: Acute (6) Acute respiratory failure ICD Code: J96.00 - Acute respiratory failure, unspecified whether with hypoxia or hypercapnia Status: Acute Procedures tracheostomy Brief History - From Admission 87-year-old male was initially admitted to outside facility on April 10, 2017 after a fall and was found to have an unstable C5-C6 fracture for which she underwent C6 partial corpectomy, cervical discectomy anterior approach, fusion C5-C6, posterior cervical fusion C4-C7. His hospital course at that time was complicated by hematoma with cord compression for which she had repeat surgery on 04/12 with evacuation of hematoma following which he was discharged to a rehab facility however started having persistent drainage from posterior cervical neck fusion site with dysphagia and was readmitted on April 28. MSSA. On his admission April 28 at [facility] he was evaluated by multiple specialists including ENT, GI, and infectious disease. Infectious disease had the neurosurgical involved because of the persistent drainage from his neck fusion. Underwent PEG tube placement. Blood cultures done at rehab facility grew out MSSA. Patient underwent repeat surgery on April 29 and April 30 for posterior cervical wound with incision and sharp debridement and wound cultures from that surgery grew out MSSA. Blood cultures from that admission were negative. Patient was subsequently transferred to [place] [facility] on April. He was evaluated by hospitalist service as well as ID and was continued on Ancef IV. Patient developed problems with stridor and was evaluated by ENT and underwent CT C-spine on 05/[address] head[address] CT C- spine revealed fluid collection at the level of C3 with hardware in place. This morning ENT attempted laryngoscopy however patient stopped the procedure. He has been having problem with secretions. Subsequently developed worsening stridor for which a rapid response was called and patient was transferred to the ICU. He received Solu-Medrol 125 mg IV as well as racemic epinephrine by nebulizer treatment prior to transfer. I evaluated the patient immediately on his arrival to the ICU. At that time he was on a facemask maintaining O2 sats 100%. He did have audible stridor however did have a bee sting movement. I spoke with the ENT Dr. Reyes who evaluated the patient on [facility] and notified him of events including stridor. He felt patient had vocal cord dysfunction at this time which he anticipated would improve with time however in the meanwhile we agreed that patient needed to be watched in the ICU and that he may possibly need intubation. History was obtained by reviewing records and discussion with nursing staff and Dr. Reyes. Review of Systems Constitutional: DENIES: Fever, Chills Eyes: DENIES: Eye pain Ears, nose, mouth, throat: DENIES: Nasal discharge, Oral lesions, Throat pain, Ear Pain Respiratory: COMPLAINS OF: Cough, Sputum production, Shortness of breath Cardiovascular: DENIES: Chest pain, Syncope Gastrointestinal: COMPLAINS OF: Abdominal pain, DENIES: Diarrhea, Nausea, Vomiting, Difficulty Swallowing Genitourinary: DENIES: Urgency, Dysuria Musculoskeletal: DENIES: Joint pain Integumentary: DENIES: Rash Neurologic: DENIES: Headache Psychiatric: COMPLAINS OF: Confusion Past Family Social History Allergies: Coded Allergies: aspirin (Unverified Allergy, Severe, RASH/SOB, 10/12/16) ibuprofen (Unverified Allergy, Severe, MOTRIN--RASH/SOB, 10/12/16) Past Medical History Atrial fibrillation Dysphagia Traumatic C5-C6 fracture from a fall Recent MSSA septicemia Kidney stones Past Surgical History Bilateral hip replacement PEG placement Cervical spine surgery March 2017 Active Ordered Medications Current Medications IV Ancef Oral Bactrim Medications (Trade) Dose Ordered Sig/Vikas Route Start Time Stop Time Status Last Admin (Cardura) 2 mg DAILY PO 05/05/17 09:00 05/05/17 08:00 (Pepcid) 20 mg DAILY PO 05/05/17 09:00 05/05/17 08:00 (Robaxin) 500 mg QID PRN PO 05/04/17 17:30 (Tylenol) 650 mg Q4H PRN PEG 05/04/17 17:45 (Marge-Colace) 1 tab BID PEG 05/04/17 21:00 05/05/17 08:00 (Milk Of Magnesia Liq) 30 ml Q12H PRN PO 05/04/17 17:45 (Senokot) 17.2 mg Q12H PRN PEG 05/04/17 17:45 (Dulcolax Supp) 10 mg DAILY PRN RECTAL 05/04/17 17:45 (Lactulose Liq) 30 ml DAILY PRN PO 05/04/17 17:45 (Roxicodone) 5 mg Q4H PRN PO 05/04/17 18:15 05/05/17 08:01 Cefazolin Sodium/ Dextrose 50 ml @ 100 mls/hr Q8H IV 05/04/17 20:00 05/05/17 14:18 (Duoneb Neb) 1 ampule Q6HR WHILE AWAKE NEB NEB 05/05/17 14:00 05/05/17 13:00 (Duoneb Neb) 1 ampule Q2HR NEB PRN NEB 05/05/17 08:15 05/05/17 09:36 (Bactrim 800-160 Mg/20 ml Liq) 20 ml Q12H PO 05/05/17 14:00 05/12/17 13:59 Family History Noncontributory Social History Ex smoker 1 pack per day, quit in the 70s Intermittent alcohol use No illicit drugs CBC/BMP: 05/11/17 1648 05/11/17 1648 Significant Findings Laboratory Tests Test 05/11/17 13:53 05/11/17 16:48 Red Blood Count 2.97 MIL/MM3 (4.50-5.90) Hemoglobin 9.3 GM/DL (13.0-17.0) Hematocrit 27.1 % (39.0-51.0) Neutrophils (%) (Auto) 71.9 % (16.0-70.0) Monocytes (%) (Auto) 9.1 % (0.0-8.0) Calcium Level 8.4 MG/DL (8.5-10.1) Imaging Last Impressions Chest X-Ray 05/09/17 0000 Signed Impressions: Service Date/Time: Tuesday, May 09, 2017 12:05 - CONCLUSION: 1. Left lower lobe effusion and consolidation new when compared to previous. This is concerning for pneumonia. Michael Henry MD PE at Discharge GENERAL: This is a well-nourished, well-developed patient, in no apparent distress. Neck; trach in place CARDIOVASCULAR: Regular rate and regular rhythm without murmurs, gallops, or rubs. RESPIRATORY: Clear to auscultation. Breath sounds equal bilaterally. No wheezes , rales, or rhonchi. GASTROINTESTINAL: Abdomen soft, non-tender, nondistended. Normal, active bowel sounds- PEG in place MUSCULOSKELETAL: Extremities without clubbing, cyanosis, or edema. NEURO: Alert & Oriented x4 to person, place, time, situation. Moves all ext x4 Pt update on day of discharge Patient can nod yes and no to questions and follow commands. Discussed discharge planning with infectious disease Dr. Moran. Hospital Course 87-year-old male admitted and treated for the following: Unstable C6 fracture s/p fall Traumatic cervical cord injury Central cord syndrome s/p ACDF C5-C6, partial corpectomy C6 and staged posterior cervical decompression and fusion C4 to C7 complicated by hematoma with cord compression s/p evacuation -Comprehensive rehabilitation to be continued at [facility]. Stridor Acute respiratory failure Vocal cord dysfunction Fluid collection at C3 level Patient received racemic epinephrine nebulizer treatment 2 as well as Solu- Medrol 125 mg IV at the time of transfer from [place] [facility] to ICU. Continued to have stridor. Intubated and placed on mechanical ventilation and subsequently underwent percutaneous tracheostomy 05/06/17. evaluated by ENT. Neurosurgical consult as well for evaluation of fluid collection at C3 level. Dr. Castro recommends continuing current antibiotic regimen and further management by his surgeons who performed his cervical spine surgeries If deemed infectious fluid collection, will need with further debridement or instrumentation removal in case deeper infection Trach placed 05/07 for stable airway pulmonary followed the patient. Respiratory status much improved. Would recommend pulmonology consult to continue to follow at [place]. MSSA sepsis LLL pneumonia I&D cervical wound with cultures positive for MSSA. -Discussed with infectious disease, Dr Doreen ospina. Plan to continue IV Ancef for 6 weeks from date of surgery 04/29. -Per ID, plan to refer to Dr. Bean at time of discharge, questionable lifelong suppression due to hardware placement -started on Levaquin Bilateral upper extremity edema -Doppler studies reveal nonocclusive thrombus in the right axillary and brachial veins. 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 Likely dysphonia multifactorial with poor respiratory effort, dry mucosa, decreased cord mobility and thick mucus. -suction prn UTI -treated. Atrial fibrillation Rate controlled -consider anticoagulation to be resumed when ok with neurosurgery. -continue to monitor HR Hypertension -Continue on Cardura 2 mg daily -To monitor BP and adjust treatment accordingly Anemia, suspect postoperative anemia of acute blood loss -Unknown baseline -Monitor for any active bleeding -Monitor CBC as indicated Incidental finding of [address] chest suggestive of spiculated mass -previously discussed finding with and patient on [place] [facility] -Recommend PET scan as outpatient Pt Condition on Discharge: Good Discharge Disposition: Rehab Inpatient Discharge Time: > 30 minutes Discharge Instructions DIET: Follow Instructions for: On Tube Feeding Activities you can perform: Regular-No Restrictions Follow up Referrals: Infectious Disease Neurosurgery PCP Follow-up Pulmonology Continued Medications: Acetaminophen (Eq Acetaminophen) 325 Mg Tab 650 MG PEG Q4H PRN for PAIN SCALE 1 TO 3 for 30 Days, #360 TAB Doxazosin (Doxazosin) 2 Mg Tab 2 MG PO DAILY, #30 TAB 0 Refills Doxazosin (Cardura) 2 Mg Tab 2 MG PO DAILY for 30 Days, TAB Famotidine (Famotidine) 20 Mg Tab 20 MG PO DAILY, #60 TAB 0 Refills Famotidine (Famotidine) 20 Mg Tab 20 MG PO DAILY for 30 Days, TAB Insulin Aspart Inj (Novolog Inj) 100 Unit/Ml Inj 1 UNIT SQ ACHS SLIDING SCALE for 30 Days, INJECTION Methocarbamol (Methocarbamol) 500 Mg Tab 500 MG PO QID PRN for MUSCLE SPASM, #120 TAB 0 Refills Methocarbamol (Methocarbamol) 500 Mg Tab 500 MG PO QID PRN for MUSCLE SPASM for 30 Days, TAB Oxycodone (Oxycodone) 5 Mg Cap 5 MG PO Q4H PRN for PAIN, CAP 0 Refills Sennosides-Docusate Sodium (Gnp Senna Plus 8.6-50 mg) 8.6 Mg-50 Mg Tab 1 TAB PEG BID for 30 Days, TAB [Albuterol-Ipratropium Neb] () 1 AMPULE NEBU 1 AMPULE NEB Q4HR WHILE AWAKE NEB for 30 Days [Albuterol-Ipratropium Neb] () 1 AMPULE NEBU 1 AMPULE NEB Q2HR NEB PRN for SHORTNESS OF BREATH for 30 Days Claudia Knott MD May 12, 2017 13:00
[2017-05-12 13:13] VITALS: BP 122/64; PULSE 75; RESP 17; TEMP 98.4; O2SAT 99
[2017-05-12] MEDS: FLUCONAZOLE 100 MG TAB PEG SCH (14:55)
--- NOTE | 2017-05-12 15:30 | HHI.PR ---
Subjective Remarks ALERT NO DISTRESS TRACHEOSTOMY IN PLACE Objective Vital Signs Date Time Temp Pulse Resp B/P (MAP) Pulse Ox O2 Delivery O2 Flow Rate FiO2 05/12/17 13:13 98.4 75 17 122/64 (83) 99 05/12/17 09:55 98 T-Piece 6.00 28 05/12/17 09:10 95 T-piece 28 05/12/17 08:00 98.6 77 18 119/58 (78) 98 05/12/17 06:00 97.9 88 18 128/68 (88) 98 05/12/17 02:17 98 T-Piece 6.00 28 05/12/17 00:15 98.8 89 20 150/67 (94) 98 05/11/17 21:50 98.1 96 22 114/55 (74) 97 05/11/17 20:00 T-Piece 6.00 28 05/11/17 19:39 97 T-piece 28 05/11/17 16:18 99.6 85 20 108/55 (72) 97 I/O 05/11/17 05/11/17 05/11/17 05/12/17 05/12/17 05/12/17 07:00 15:00 23:00 07:00 15:00 23:00 Intake Total 0 ml 0 ml Output Total 2350 ml 1000 ml 700 ml 1500 ml Balance -2350 ml -1000 ml -700 ml -1500 ml Intake Oral 0 ml 0 ml Output Urine Total 2350 ml 1000 ml 700 ml 1500 ml # Bowel Movements 2 0 1 Result Diagram: 05/11/17 1648 05/11/17 1648 Objective Remarks GENERAL: SKIN: Warm and dry. HEAD: Atraumatic. Normocephalic. EYES: Pupils equal and round. No scleral icterus. No injection or drainage. ENT: No nasal bleeding or discharge. Mucous membranes pink and moist. NECK: Trachea midline. No JVD. trach. in place CARDIOVASCULAR: Regular rate and rhythm. RESPIRATORY: No accessory muscle use. Clear to auscultation. Breath sounds equal bilaterally. GASTROINTESTINAL: Abdomen soft, non-tender, nondistended. Hepatic and splenic margins not palpable. MUSCULOSKELETAL: Extremities without clubbing, cyanosis, or edema. No obvious deformities. NEUROLOGICAL: Awake and alert. No obvious cranial nerve deficits. Motor grossly within normal limits. Five out of 5 muscle strength in the arms and legs. Normal speech. PSYCHIATRIC: Appropriate mood and affect; insight and judgment normal. Assessment and Plan Assessment and Plan impression S/P TRACH S/P C SPINE SURGERY PLAN PULM TOILET REMOVE TRACH WHEN POSSIBLE INCREASE ACTIVITY Sourav Benjamin MD May 12, 2017 15:30
[2017-05-12 16:00] VITALS: BP 118/62; PULSE 69; RESP 17; TEMP 98.6; O2SAT 98
[2017-05-12] MEDS ORDERED: SODIUM CHLORIDE 0.9% FLUSH 10 ML FLUSH IV FLUSH PRN (16:45)
--- NOTE | 2017-05-12 17:20 | RADRPT ---
EXAM DATE/TIME: 05/12/2017 16:53 [facility] COMPARISON: CHEST SINGLE AP, May 09, 2017, 12:05. INDICATIONS : PICC line placement. MEDICAL HISTORY : Cardiovascular disease. A-fib SURGICAL HISTORY : PEG tube, internal defibrilator ENCOUNTER: Initial ACUITY: 1 day PAIN SCORE: 0/10 LOCATION: Bilateral chest FINDINGS: A single view of the chest demonstrates right PICC line in superior vena cava. Tracheostomy in good p osition. Bilateral mostly basilar airspace disease with small effusions. No pneumothorax. Heart size upper limits normal.. CONCLUSION: 1. Right PICC line tip in superior vena cava in good position. Mild basilar airspace disease and smal l effusions. Tee Kohler MD on May 12, 2017 at 17:18 Board Certified Radiologist. This report was verified electronically.
[2017-05-13] MEDS ORDERED: SODIUM CHLORIDE 0.9% FLUSH 10 ML FLUSH IV FLUSH SCH (09:00)
== END 2017-05-12 18:12 | DRG 4 ==
LOC: N03A 09:35 → N05A 05-09 18:34
PROVIDERS: ADMIT Family Medicine; ATTEND Family Medicine
PROC: 0B113F4 Bypass Trachea to Cutaneous with Tracheostomy Device, Percutaneous Approach (ICD-10-PCS; principal; 2017-05-06)
PROC: 5A1935Z Respiratory Ventilation, Less than 24 Consecutive Hours (ICD-10-PCS; 2017-05-06)
PROC: 0BJ08ZZ Inspection of Tracheobronchial Tree, Via Natural or Artificial Opening Endoscopic (ICD-10-PCS; 2017-05-06)
PROC: 0BH17EZ Insertion of Endotracheal Airway into Trachea, Via Natural or Artificial Opening (ICD-10-PCS; 2017-05-06)
PROC: 0CJS8ZZ Inspection of Larynx, Via Natural or Artificial Opening Endoscopic (ICD-10-PCS; 2017-05-06)
DX: J96.00 Acute respiratory failure, unspecified whether with hypoxia or hypercapnia (principal); S14.126A Central cord syndrome at C6 level of cervical spinal cord, initial encounter; J18.9 Pneumonia, unspecified organism; L89.159 Pressure ulcer of sacral region, unspecified stage; J38.00 Paralysis of vocal cords and larynx, unspecified; N39.0 Urinary tract infection, site not specified; I48.91 Unspecified atrial fibrillation; D62 Acute posthemorrhagic anemia; T81.4XXA Infection following a procedure, initial encounter; R13.10 Dysphagia, unspecified; Z93.1 Gastrostomy status; R44.3 Hallucinations, unspecified; J38.3 Other diseases of vocal cords; R60.0 Localized edema; R49.0 Dysphonia; I10 Essential (primary) hypertension; Z96.643 Presence of artificial hip joint, bilateral; Z87.891 Personal history of nicotine dependence; Z98.1 Arthrodesis status; Z51.5 Encounter for palliative care
CPT/HCPCS: 31500; 31600; 31624; 36569; 71045; 76937; 80048; 80053; 81001; 82948; 83735; 84100; 84145; 85025; 85027; 85652; 86140; 87070; 87205; 87641; 93306; 94002; 94003; 94640; 94664; J0330; J0461; J0690; J1200; J1650; J3010; J7030; J7040